=== PATIENT | male | born 1935 | race Caucasian/White ===

== ENCOUNTER → 2016-11-26 | Outpatient (CLI) | payer BC ==
[~2016-11-26] MED LIST: ACET-1256 PO; ALBU0.5N2 NEB; ALBU1AER9 INH; ASPI81TA28 PO; ATOR-26 PO; BNC40 PO; CETI10TA84 PO; CHOL1TAB2 PO; CLOP1TAB15 PO; COEN100C7 PO; CYAN10005 PO; DILT240C48 PO; DILT300C PO; DIPH-437 PO; FERR1TAB13 PO; FLUT1INH INH; FRS/40 PO; FURO-85 PO; GFNSR600 PO; GLUC1500 PO; GUAISYP4 PO; INSDGIPEN SC; LEVO125T4 PO; LEVO25TA5 PO; LSX40 PO; METF-384 PO; METF1TAB53 PO; MULT-845 PO; OMEG10007 PO; PLV75 PO; POTA20TA16 PO; PRED-301 PO; PRED10TA PO; PRT40 PO; SITA1TAB27 PO; SPRIN/30 INH; TPRSR/50 PO; VIT D3; augmentin
--- NOTE | 2016-11-26 12:16 | DIAGNOSTIC IMAGING REPORT ---
ABDOMEN AND PELVIS CT WITH IV AND ORAL CONTRAST CT DOSE: HISTORY: NON-SMALL CELL LUNG cancer TECHNIQUE: Multiaxial CT images of the abdomen and pelvis were performed following the use of intravenous and oral contrast. COMPARISON STUDY: Abdomen and pelvis CT 08/13/2016. FINDINGS: Bibasilar groundglass and tree-in-bud nodular densities which are new from the prior study. This favors an atypical pneumonia. No suspicious lytic or blastic osseous lesions. There are poststernotomy changes. There are few punctate calcified granulomas within the liver and spleen. No hepatic or splenic masses. The gallbladder and adrenal glands are unremarkable. Fatty replacement throughout the majority of the pancreas. Small splenic subcapsular fluid collection remains unchanged. No renal stones or hydronephrosis. The left kidney enhances normally. Stable 3 cm cyst within the right kidney. No retroperitoneal or mesenteric lymphadenopathy. Extensive calcified plaque within the aorta and iliac arteries. 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 This remains unchanged. Prostate remains mildly enlarged. Mild anterior bladder wall thickening may be due to underdistention. Colonic diverticulosis. Moderate stool throughout the colon. No bowel wall thickening or obstruction. Normal appendix. IMPRESSION: 1. No significant change compared to the prior study. No evidence for metastatic disease within the abdomen or pelvis. 2. Small splenic subcapsular fluid collection remains stable. This may represent an old hematoma. 3. Patchy groundglass and tree-in-bud nodular densities within the lung bases favor an atypical pneumonia. Please refer to the dedicated chest CT performed same day for further evaluation. Electronically signed by: Guille Baltazar M.D. 11/26/2016 12:14 PM Dictated Date/Time: 11/26/2016 12:04 PM
--- NOTE | 2016-11-26 12:26 | DIAGNOSTIC IMAGING REPORT ---
CHEST CT WITH CONTRAST CT DOSE: 1147.28 mGy.cm HISTORY: Non-small cell lung cancer. Follow-up. TECHNIQUE: Multiaxial CT images of the chest were performed following the intravenous administration of contrast. COMPARISON: Chest CT 08/13/2016 FINDINGS: Emphysema. The central airways are patent. No pneumothorax. No pleural effusions. Calcified granuloma within the left upper lobe. A 13 mm nodule within the superior segment of the left lower lobe on image 24 is increased in size. This produced measured 11 mm. Stable 4 mm nodule within the right upper lobe on image 138 of 356. Stable 8 mm nodule within the right upper lobe on image 172. A few tree-in-bud nodular densities within the lung bases have developed in the interval. This most pronounced within the base of the right lower lobe. This favors a mild atypical pneumonia. Irregular density within the periphery of the right lower lobe is similar to the prior study. This measures 2.2 cm. There are are poststernotomy changes. No suspicious lytic or blastic osseous lesions. No supraclavicular or axillary lymphadenopathy. Mitral and aortic valve calcifications are again noted. No left hilar lymphadenopathy. Significant increase in size in a 4.1 x 3.5 cm right hilar lymph node. Normal caliber thoracic aorta. The central pulmonary arteries are patent. IMPRESSION: 1. Significant increase in size in a 4.1 x 3.5 cm metastatic right hilar lymph node. 2. Slight increase in size in the 13 mm nodule within the left lower lobe which also likely represents a metastatic focus. 3. A few additional subcentimeter pulmonary nodules and a 2.2 cm irregular density within the right lower lobe are not significantly changed. 4. Interval development of a few tree-in-bud nodular densities within the lung bases which likely represents an atypical pneumonia. 5. Emphysema. Electronically signed by: Guille Baltazar M.D. 11/26/2016 12:25 PM Dictated Date/Time: 11/26/2016 12:14 PM
== END | disposition home or self-care (01) ==
LOC: C.CTS 11:27
PROVIDERS: ATTEND Internal Medicine Hematology & Oncology
DX: C34.30 Malignant neoplasm of lower lobe, unspecified bronchus or lung (principal)

== ENCOUNTER → 2016-12-09 | Outpatient (CLI) | payer BC ==
--- NOTE | 2016-12-09 10:48 | DIAGNOSTIC IMAGING REPORT ---
PET/CT HISTORY: Lung carcinoma NON SMALL CELL LUNG CANCER TECHNIQUE: PET/CT was performed from the base of the skull through the pelvis following the intravenous administration of 15.4 mCi of [id number]. Non-contrast CT imaging was performed over the same range without breath-hold for attenuation correction of PET images and anatomic correlation, but not for primary interpretation as it is not of standard diagnostic quality. CT DOSE: COMPARISON: Prior PET/CT scan dated 06/01/2016. CT chest abdomen pelvis dated 11/26/2016. CT chest abdomen and pelvis dated 08/13/2016 FINDINGS: HEAD AND NECK: There is no FDG-avid disease or significant lymphadenopathy in the imaged portions of the head and the neck. CHEST: There is progressive metastatic disease within the chest compared to the prior PET scan, although stable compared to the patient's recent CT exam. A 13 mm nodule showing increased metabolic activity characteristics superior segment left lower lobe is noted. SUVs of 2.6 interval development and/or progression of a right hilar node is noted compared to the prior PET scan but again stable compared to the patient's recent CT exam. SUVs of 6.3. Dimensions are unchanged compared to the recent CT scan. Chest otherwise shows unremarkable activity characteristics. There is physiologic activity within the myocardium. Abdomen/pelvis: Examination of the abdomen and pelvis again shows unremarkable activity characteristics of the gastrointestinal and genitourinary tracts. No significant metabolically active adenopathy is noted. Physiologic activity within the bladder is present. There is no abnormal activity characteristics of the soft tissue pelvis or inguinal regions. MUSCULOSKELETAL: There is no FDG-avid or destructive bone lesion. IMPRESSION: 1. Progressive metastatic disease involving the chest primarily involving the superior segment left lower lobe and right hilum. 2. These nodules and/or nodes, however are unchanged compared to recent CT of the chest 3. Stable appearance to the abdomen and pelvis with no evidence for a metabolically active focus Electronically signed by: Jairo Lucas M.D. 12/09/2016 10:47 AM Dictated Date/Time: 12/09/2016 10:29 AM
== END | disposition home or self-care (01) ==
LOC: C.PET 07:54
PROVIDERS: ATTEND Internal Medicine Hematology & Oncology
DX: C34.30 Malignant neoplasm of lower lobe, unspecified bronchus or lung (principal)

== ENCOUNTER 2016-12-29 13:42 | Inpatient (IN) | payer BC, OTHER ==
[~2016-12-29] VITALS: Ht 180.3 cm; Wt 100.2 kg
[~2016-12-29 13:42] MED LIST changes: -DIPH-437 PO; -FERR1TAB13 PO; -FRS/40 PO; -GFNSR600 PO; -GUAISYP4 PO; -INSDGIPEN SC; -LEVO125T4 PO; -LSX40 PO; -METF1TAB53 PO; -PLV75 PO; -PRED-301 PO; -PRED10TA PO; -SITA1TAB27 PO; -augmentin
[2016-12-29] MEDS ORDERED: ACETAMINOPHEN 500 MG TAB PO STA (13:57)
[2016-12-29] MEDS ORDERED: SODIUM CHLORIDE 0.9% 1000ML 1,000 ML IV STA ×2 (13:57→16:21)
[2016-12-29] MEDS ORDERED: VANCOMYCIN INJ 2,000 MG in SODIUM CHLORIDE 0.9% 250ML 250 ML IV STA (14:05)
[2016-12-29] MEDS ORDERED: VANCOMYCIN INJ 2,000 MG in SODIUM CHLORIDE 0.9% 500ML 500 ML IV SCH (14:05)
[2016-12-29] MEDS ORDERED: PIPERACILLIN/TAZOBACTAM 4.5 GM/100ML D5W IV STA (14:05)
--- NOTE | 2016-12-29 14:08 | DIAGNOSTIC IMAGING REPORT ---
CHEST ONE VIEW PORTABLE CLINICAL HISTORY: fever dyspnea COMPARISON STUDY: 03/30/2016 FINDINGS: Moderately compromised exam due to respiratory motion artifact. Mild stable cardiomegaly. Interstitial prominence throughout both hemithoraces similar compared to the prior exam. Possibility of a vague parenchymal infiltrate left base. Diaphragms are smooth. IMPRESSION: Limited exam due to patient somatic and respiratory motion. Extensive chronic change. Potential early parenchymal infiltrate left base Electronically signed by: Jairo Lucas M.D. 12/29/2016 2:06 PM Dictated Date/Time: 12/29/2016 2:06 PM
[2016-12-29] MEDS ORDERED: OPTIRAY 320 IV PRN (14:15)
[2016-12-29 14:28] LABS: PROTHROMBIN TIME (PATIENT) 10.6 SECONDS (9.0-12.0)
[2016-12-29 14:39] LABS: ALT/SGPT 29 U/L (12-78); AST/SGOT 19 U/L (15-37); BLOOD UREA NITROGEN 41 mg/dl (7-18); CALCIUM 8.5 mg/dl (8.5-10.1); CARBON DIOXIDE 25 mmol/L (21-32); CHLORIDE 102 mmol/L (98-107); GLUCOSE 219 mg/dl (70-99); HEMATOCRIT 28.4 % (42-52); MEAN CELL VOLUME 90.7 fL (80-100); MEAN CORPUSCULAR HEMOGLOBIN 31.3 pg (25-34); MEAN CORPUSCULAR HGB CONC 34.5 g/dl (32-36); MEAN PLATELET VOLUME 11.5 fL (7.4-10.4); PLATELET COUNT 177 K/uL (130-400); POTASSIUM 4.9 mmol/L (3.5-5.1); RED BLOOD COUNT 3.13 M/uL (4.7-6.1); SODIUM 136 mmol/L (136-145); WHITE BLOOD COUNT 0.85 K/uL (4.8-10.8)
[2016-12-29] MEDS ORDERED: LEVAQUIN 750MG / 150ML D5W IV STA (14:40)
[2016-12-29 14:44] LABS: ALKALINE PHOSPHATASE 63 U/L (45-117)
[2016-12-29] MEDS ORDERED: PLV75 PO (14:50)
[2016-12-29] MEDS ORDERED: METF1TAB53 PO (14:50)
[2016-12-29] MEDS ORDERED: SITA1TAB27 PO (14:50)
[2016-12-29] MEDS ORDERED: PRED-301 PO (14:50)
[2016-12-29] MEDS ORDERED: LSX40 PO (14:50)
[2016-12-29] MEDS ORDERED: LEVO125T5 PO (14:50)
[2016-12-29 14:54] LABS: ACANTHOCYTES 1+; COMPLETE YES; EOS % 2.4 %; GIANT PLATELETS 2+; LYMPH % 78.8 %; LYMPH ABS # 0.67 K/uL (1.2-3.4); MONO % 9.4 %; NEUT % 9.4 %
[2016-12-29 14:58] LABS: URINE APPEARANCE CLEAR (CLEAR); URINE BILIRUBIN NEG (NEG); URINE COLOR YELLOW; URINE EPITHELIAL CELL AUTO 0-5 /lpf (0-5); URINE NITRITE NEG (NEG); URINE SPECIFIC GRAVITY 1.013 (1.000-1.030); UROBILINOGEN NEG (NEG); ZZURINE CULT IF INDIC CATH NO
[2016-12-29 15:12] LABS: MANUAL MICROSCOPIC REQUIRED? NO; REVIEW REQ? NO
--- NOTE | 2016-12-29 15:27 | DIAGNOSTIC IMAGING REPORT ---
ABDOMEN AND PELVIS CT WITH IV CONTRAST CT DOSE: 1341.55 mGycm HISTORY: Pain diffuse abd pain TECHNIQUE: Multiaxial CT images of the abdomen and pelvis were performed following the use of intravenous contrast. COMPARISON STUDY: 11/26/2016. FINDINGS: Interval development of or progression of consolidative infiltrative changes right lower lobe. Left base is considered clear. Configuration of liver is unremarkable. Mild gallbladder distention. Right renal cyst unchanged. No evidence for renal hydronephrosis. Slight perinephric fat stranding minimally progressive from the prior study. Bowel pattern is nonobstructive. A be a minimal nonobstructive ileus. Considerable atherosclerotic change of the abdominal aorta as well as pelvic iliac vasculature. Proctor catheter within the bladder. The appendix is normal. IMPRESSION: 1. Progression of and/or development of a consolidative infiltrate right lung base. 2. Subtle increase in perinephric infiltrative fat stranding of the kidneys bilaterally. Also present in part on the prior study, it is possible that this is slightly progressive with urinalysis for potential pyelonephritis recommended. 3. Nonobstructive bowel pattern. Electronically signed by: Jairo Lucas M.D. 12/29/2016 3:25 PM Dictated Date/Time: 12/29/2016 3:16 PM
[2016-12-29] MEDS ORDERED: FRS/40 PO (15:31)
[2016-12-29] MEDS ORDERED: INSDGIPEN SC (15:31)
[2016-12-29] MEDS ORDERED: FERR1TAB13 PO (15:31)
[2016-12-29] MEDS ORDERED: POLYETHYLENE (MIRALAX) 17 GM PACK PO PRN (17:00)
[2016-12-29] MEDS ORDERED: ONDANSETRON INJ 2 MG/ML 2 ML VIAL IV PRN (17:00)
[2016-12-29] MEDS ORDERED: ALBUT/IPRATROP 3MG/0.5MG NEB 3 ML VIAL INH PRN (17:00)
[2016-12-29] MEDS ORDERED: ALUMINUM/MAGNESIUM/SIMETH (MAALOX MAX) 30 ML UDC PO PRN (17:00)
--- NOTE | 2016-12-29 17:33 | History and Physical ---
History & Physical Date & Time of Service: Dec 29, 2016 at 16:55 Chief Complaint: Sepsis Alert Primary Care Physician: Kennedy George M.D. History of Present Illness Source: patient, family, clinic records, hospital records This patient is a pleasant 81-year-old male that presents emergency department by ambulance with complaints of fever that started yesterday. The patient has a history of non-small cell lung cancer. He is currently undergoing chemotherapy. He was being treated with Opdivo over the last year and a half. It reportedly stopped working about a month ago. He had his first dose of chemotherapy last week. He reports feeling wiped out over the weekend. He did have some diarrhea 3 days ago. He is also complaining of a dull diffuse stomachache. Some mild nausea. No vomiting. He denies any blood in his stool. He was recently on a ten-day course of Levaquin 750 mg for pneumonia. He has had a continued productive cough. He denies any shortness of breath. He reports eating and drinking normally over the last several days. The patient was traveling to [place] to see an oncologist yesterday. When he got to the office, it was noted that he had a fever of 100.5. On the way home, the patient's noted that he seems somewhat confused. At first he refused to go to the hospital. When he became progressively weak, the called the ambulance. Workup in the emergency department is noted for neutropenia with an ANC of 80. Creatinine slightly off from baseline at 1.4. Chest x-ray and CT of the abdomen and pelvis were performed. Right lower lobe infiltrate was noted in addition to perinephric stranding bilaterally. The patient denies any urinary symptoms prior to arrival. Past Medical/Surgical History Non-small cell lung cancer previously treated with Opdivo. Now being treated with chemotherapy. First dose 1 week ago. Peripheral vascular disease status post bilateral lower extremity stenting 2 years ago Diabetes mellitus type 2 Obstructive sleep apnea COPD history of upper GI bleed associated with duodenal ulcers in 2013 Hyperlipidemia Bronchial washings grew out pseudomonas in 2013 Coronary artery disease and aortic stenosis status post aVR and CABG 2 in 2006 (porcine bioprosthetic valve) s/p cataract sx, knee sx, other sx as noted above Family History Heart disease Social History Smoking Status: Former Smoker (quit smoking in 2006) Alcohol Use: none Drug Use: none Marital Status: Housing status: lives with significant other Occupational Status: retired (retired yesi of [employer]) Immunizations History of Influenza Vaccine: No Influenza Vaccine Date: Jul 04, 2010 History of Tetanus Vaccine?: UTD History of Pneumococcal: No History of Hepatitis B Vaccine: No Multi-Drug Resistant Organisms History of MDRO: No Allergies Coded Allergies: Sulfa Antibiotics (Verified Allergy, Severe, ., 12/29/16) Home Medications Scheduled Aspirin (Aspirin Ec), 81 MG PO DIRECTED Atorvastatin (Lipitor), 80 MG PO HS Cholecalciferol (Vitamin D-3), 1,000 INTER.UNIT PO BID Clopidogrel (Plavix), 75 MG PO DAILY Coenzyme Q10 (Ubidecarenone) (Coq10), 100 MG PO DAILY Cyanocobalamin (Vitamin B-12), 1,000 MCG PO DAILY Diltiazem Hcl Coated Beads (Cartia Xt), 1 CAP PO DAILY Ferrous Sulfate (Kp Ferrous Sulfate), 325 MG PO DAILY Fish Oil ([place]-3), 1,000 MG PO DAILY Fluticasone Furoate-Vilanterol (Breo Ellipta), 1 INHA INH DAILY Furosemide (Furosemide), 40 MG PO QAM Furosemide (Lasix), 20 MG PO QPM Qldixdgmvyf-Wakumsdutjv-Obp C- (Glucosamine Chondroitin 1), 1,500 MG PO DAILY Insulin Glargine (Lantus Solostar), 8 UNITS SC QPM Levothyroxine Sodium (Levothyroxine Sodium), 125 MCG PO QAM Metformin Hcl (Glucophage Ext Rel), 2,000 MG PO QAM Metoprolol Succinate (Metoprolol Succinate ER), 50 TAB PO QAM Multiple Vitamins W/ Minerals (Centrum Silver Adult 50+), 1 TAB PO DAILY Olmesartan Medoxomil (Benicar), 40 MG PO QAM Pantoprazole (Pantoprazole Sodium), 40 MG PO BID Potassium Ext Rel (Klor-Con), 20 MEQ PO DAILY Prednisone (Prednisone), 5 MG PO DAILY Sitagliptin (Januvia), 100 MG PO DAILY Tiotropium [place] (Spiriva Handihaler), 1 CAP INH QPM Scheduled PRN Acetaminophen (Tylenol), 1,000 MG PO Q4H PRN for Pain Albuterol 0.5% Soln (Ventolin 0.5% Soln), 1 VIAL NEB DAILY PRN for PRN Albuterol Sulfate (Proair Hfa), 2 PUFFS INH QID PRN for Wheezing Cetirizine (Zyrtec), 10 MG PO DAILY PRN for Allergies Review of Systems 10 system review performed and negative unless noted in HPI or below Physical Exam Vital Signs Date Time Temp Pulse Resp B/P Pulse Ox O2 Delivery O2 Flow Rate FiO2 12/29/16 16:23 82 18 102/40 99 Room Air 12/29/16 16:15 81 18 97/41 98 Room Air 12/29/16 15:56 82 18 93/39 97 Nasal Cannula 2.0 12/29/16 15:36 87 20 114/51 97 Nasal Cannula 2.0 12/29/16 15:25 37.0 85 18 97/43 98 Nasal Cannula 2.0 12/29/16 14:59 88 21 103/38 98 Nasal Cannula 2.0 12/29/16 14:53 39.0 12/29/16 14:48 90 22 104/40 98 Nasal Cannula 2.0 12/29/16 14:31 98 24 117/44 95 Room Air 12/29/16 14:07 98 21 114/32 97 Nasal Cannula 2.0 12/29/16 14:04 97 Nasal Cannula 2.0 12/29/16 13:55 101 12/29/16 13:42 38.6 106 20 118/60 97 Nasal Cannula 2.0 12/29/16 13:42 97 Nasal Cannula 2.0 GENERAL: 81-year-old male, acutely ill in appearance SKIN: The skin was warm and sweaty HEAD: Normocephalic atraumatic. EYES: Pupils equal round and reactive to light Extraocular movements intact. MOUTH: Mucous membranes dry. Superficial ulceration noted to the left anterior portion of the tongue. No weight exudate noted. NECK: No lymphadenopathy. No JVD. HEART: Faint systolic murmur. Regular rate and rhythm. LUNGS: Crackles at the bases right greater than left. No wheezing auscultated. Mild tachypnea without any sensory muscle use. ABDOMEN: Positive bowel sounds x 4.Soft, nontender, without organomegaly. No guarding or rebound tenderness. No CVA tenderness noted. MUSCULOSKELETAL: No muscle atrophy, erythema, or edema noted. Strength 5/5 throughout. NEURO: Patient was alert and oriented to person place and time. Normal sensation to touch. No focal neurological deficits. Diagnostics Laboratory Results 12/29/16 13:47 Red Blood Count 3.13, Mean Corpuscular Volume 90.7, Mean Corpuscular Hemoglobin 31.3, Mean Corpuscular Hemoglobin Concent 34.5, Mean Platelet Volume 11.5, Neutrophils (%) (Auto) 9.4, Lymphocytes (%) (Auto) 78.8, Monocytes (%) (Auto) 9.4, Eosinophils (%) (Auto) 2.4, Basophils (%) (Auto) 0.0, Neutrophils # (Auto) 0.08, Lymphocytes # (Auto) 0.67, Monocytes # (Auto) 0.08, Eosinophils # (Auto) 0.02, Basophils # (Auto) 0.00 Test 12/29/16 13:47 12/29/16 13:55 12/29/16 14:23 White Blood Count 0.85 K/uL (4.8-10.8) Red Blood Count 3.13 M/uL (4.7-6.1) Hemoglobin 9.8 g/dL (14.0-18.0) Hematocrit 28.4 % (42-52) Mean Corpuscular Volume 90.7 fL (80-100) Mean Corpuscular Hemoglobin 31.3 pg (25-34) Mean Corpuscular Hemoglobin Concent 34.5 g/dl (32-36) Platelet Count 177 K/uL (130-400) Mean Platelet Volume 11.5 fL (7.4-10.4) Neutrophils (%) (Auto) 9.4 % Lymphocytes (%) (Auto) 78.8 % Monocytes (%) (Auto) 9.4 % Eosinophils (%) (Auto) 2.4 % Basophils (%) (Auto) 0.0 % Neutrophils # (Auto) 0.08 K/uL (1.4-6.5) Lymphocytes # (Auto) 0.67 K/uL (1.2-3.4) Monocytes # (Auto) 0.08 K/uL (0.11-0.59) Eosinophils # (Auto) 0.02 K/uL (0-0.5) Basophils # (Auto) 0.00 K/uL (0-0.2) RDW Standard Deviation 45.0 fL (36.4-46.3) RDW Coefficient of Variation 13.6 % (11.5-14.5) Immature Granulocyte % (Auto) 0.0 % Immature Granulocyte # (Auto) 0.00 K/uL (0.00-0.02) Giant Platelets 2+ Acanthocytes 1+ Prothrombin Time 10.6 SECONDS (9.0-12.0) Prothromb Time International Ratio 1.0 (0.9-1.1) Anion Gap 9.0 mmol/L (3-11) Estimated GFR () 54.2 Estimated GFR (Non- 46.8 BUN/Creatinine Ratio 29.0 (10-20) Calcium Level 8.5 mg/dl (8.5-10.1) Magnesium Level 2.0 mg/dl (1.8-2.4) Total Bilirubin 1.1 mg/dl (0.2-1) Direct Bilirubin 0.3 mg/dl (0-0.2) Aspartate Amino Transf (AST/SGOT) 19 U/L (15-37) Alanine Aminotransferase (ALT/SGPT) 29 U/L (12-78) Alkaline Phosphatase 63 U/L (45-117) Total Creatine Kinase 44 U/L (39-308) Creatine Kinase MB < 0.5 ng/ml (0.5-3.6) Creatine Kinase MB Ratio (0-3.0) Troponin I 0.034 ng/ml (0-0.045) Total Protein 6.5 gm/dl (6.4-8.2) Albumin 2.8 gm/dl (3.4-5.0) Bedside Lactic Acid Venous 2.02 mmol/L (0.90-1.70) Urine Color YELLOW Urine Appearance CLEAR (CLEAR) Urine pH 5.0 (4.5-7.5) Urine Specific [place] 1.013 (1.000-1.030) Urine Protein NEG (NEG) Urine Glucose (UA) NEG (NEG) Urine Ketones NEG (NEG) Urine Occult Blood NEG (NEG) Urine Nitrite NEG (NEG) Urine Bilirubin NEG (NEG) Urine Urobilinogen NEG (NEG) Urine Leukocyte Esterase NEG (NEG) Urine WBC (Auto) 0 /hpf (0-5) Urine RBC (Auto) 0-4 /hpf (0-4) Urine Hyaline Casts (Auto) 0 /lpf (0-5) Urine Epithelial Cells (Auto) 0-5 /lpf (0-5) Urine Bacteria (Auto) NEG (NEG) Results Past 24 Hours Test 12/29/16 13:47 12/29/16 13:55 12/29/16 14:23 Range/Units White Blood Count 0.85 4.8-10.8 K/uL Red Blood Count 3.13 4.7-6.1 M/uL Hemoglobin 9.8 14.0-18.0 g/dL Hematocrit 28.4 42-52 % Mean Corpuscular Volume 90.7 80-100 fL Mean Corpuscular Hemoglobin 31.3 25-34 pg Mean Corpuscular Hemoglobin Concent 34.5 32-36 g/dl Platelet Count 177 130-400 K/uL Mean Platelet Volume 11.5 7.4-10.4 fL Neutrophils (%) (Auto) 9.4 % Lymphocytes (%) (Auto) 78.8 % Monocytes (%) (Auto) 9.4 % Eosinophils (%) (Auto) 2.4 % Basophils (%) (Auto) 0.0 % Neutrophils # (Auto) 0.08 1.4-6.5 K/uL Lymphocytes # (Auto) 0.67 1.2-3.4 K/uL Monocytes # (Auto) 0.08 0.11-0.59 K/uL Eosinophils # (Auto) 0.02 0-0.5 K/uL Basophils # (Auto) 0.00 0-0.2 K/uL RDW Standard Deviation 45.0 36.4-46.3 fL RDW Coefficient of Variation 13.6 11.5-14.5 % Immature Granulocyte % (Auto) 0.0 % Immature Granulocyte # (Auto) 0.00 0.00-0.02 K/uL Giant Platelets 2+ Acanthocytes 1+ Prothrombin Time 10.6 9.0-12.0 SECONDS Prothromb Time International Ratio 1.0 0.9-1.1 Sodium Level 136 136-145 mmol/L Potassium Level 4.9 3.5-5.1 mmol/L Chloride Level 102 98-107 mmol/L Carbon Dioxide Level 25 21-32 mmol/L Anion Gap 9.0 3-11 mmol/L Blood Urea Nitrogen 41 7-18 mg/dl Creatinine 1.40 0.60-1.40 mg/dl Estimated GFR () 54.2 Estimated GFR (Non- 46.8 BUN/Creatinine Ratio 29.0 10-20 Random Glucose 219 70-99 mg/dl Calcium Level 8.5 8.5-10.1 mg/dl Magnesium Level 2.0 1.8-2.4 mg/dl Total Bilirubin 1.1 0.2-1 mg/dl Direct Bilirubin 0.3 0-0.2 mg/dl Aspartate Amino Transf (AST/SGOT) 19 15-37 U/L Alanine Aminotransferase (ALT/SGPT) 29 12-78 U/L Alkaline Phosphatase 63 45-117 U/L Total Creatine Kinase 44 39-308 U/L Creatine Kinase MB < 0.5 0.5-3.6 ng/ml Creatine Kinase MB Ratio 0-3.0 Troponin I 0.034 0-0.045 ng/ml Total Protein 6.5 6.4-8.2 gm/dl Albumin 2.8 3.4-5.0 gm/dl Bedside Lactic Acid Venous 2.02 0.90-1.70 mmol/L Urine Color YELLOW Urine Appearance CLEAR CLEAR Urine pH 5.0 4.5-7.5 Urine Specific [place] 1.013 1.000-1.030 Urine Protein NEG NEG Urine Glucose (UA) NEG NEG Urine Ketones NEG NEG Urine Occult Blood NEG NEG Urine Nitrite NEG NEG Urine Bilirubin NEG NEG Urine Urobilinogen NEG NEG Urine Leukocyte Esterase NEG NEG Urine WBC (Auto) 0 0-5 /hpf Urine RBC (Auto) 0-4 0-4 /hpf Urine Hyaline Casts (Auto) 0 0-5 /lpf Urine Epithelial Cells (Auto) 0-5 0-5 /lpf Urine Bacteria (Auto) NEG NEG Microbiology Results 12/29/16 Blood Culture, Received Pending 12/29/16 Blood Culture, Received Pending Diagnostic Radiology Patient: DANNY BERG Address1: [address] [place] [address] Rec: [id number] Address2: Acct ID: [id number] [facility] Zip: [place] [address] Date: 1935 Sex: M Room/Bed: Ref Phy: Kennedy George M.D. SC: MIKEY Att Phy: Report #: [id number] Olivia Phy: Kennedy George M.D. Test: [id number] Admit Phy: Farm Crew Member: MURRAY Interpreting Phy: Jairo Lucas M.D. Diagnosis: SEPSIS ALERT Ordering Phy: Mando Berrios DO Service Date: 12/29/16 Admit Date: 12/29/16 MNE: [id number] CONF: DICTATED BY: Jairo Lucas M.D.]] CC: Mando Berrios, Kennedy Dinh M.D. Endcc: [~ rep ct add3]] CHEST ONE VIEW PORTABLE CLINICAL HISTORY: fever dyspnea COMPARISON STUDY: 03/30/2016 FINDINGS: Moderately compromised exam due to respiratory motion artifact. Mild stable cardiomegaly. Interstitial prominence throughout both hemithoraces similar compared to the prior exam. Possibility of a vague parenchymal infiltrate left base. Diaphragms are smooth. IMPRESSION: Limited exam due to patient somatic and respiratory motion. Extensive chronic change. Potential early parenchymal infiltrate left base Patient: DANNY BERG Address1: [address] [place] [address], [address] [facility] Rec: [id number] Address2: Acct ID: [id number] [facility] Zip: [place] [address] Date: 1935 Sex: M Room/Bed: Ref Phy: Kennedy George M.D. SC: MIKEY Att Phy: Report #: [id number] Olivia Phy: Kennedy George M.D. Test: APIV Admit Phy: Farm Crew Member: MARICHUY Interpreting Phy: Jairo Lucas M.D. Diagnosis: SEPSIS ALERT Ordering Phy: Mando Berrios DO Service Date: 12/29/16 Admit Date: 12/29/16 MNE: [id number] CONF: DICTATED BY: Jairo Lucas M.D.]] CC: Mando Berrios, Kennedy Dinh M.D. Endcc: [~ rep ct add3]] ABDOMEN AND PELVIS CT WITH IV CONTRAST CT DOSE: 1341.55 mGycm HISTORY: Pain diffuse abd pain TECHNIQUE: Multiaxial CT images of the abdomen and pelvis were performed following the use of intravenous contrast. COMPARISON STUDY: 11/26/2016. FINDINGS: Interval development of or progression of consolidative infiltrative changes right lower lobe. Left base is considered clear. Configuration of liver is unremarkable. Mild gallbladder distention. Right renal cyst unchanged. No evidence for renal hydronephrosis. Slight perinephric fat stranding minimally progressive from the prior study. Bowel pattern is nonobstructive. A be a minimal nonobstructive ileus. Considerable atherosclerotic change of the abdominal aorta as well as pelvic iliac vasculature. Proctor catheter within the bladder. The appendix is normal. IMPRESSION: 1. Progression of and/or development of a consolidative infiltrate right lung base. 2. Subtle increase in perinephric infiltrative fat stranding of the kidneys bilaterally. Also present in part on the prior study, it is possible that this is slightly progressive with urinalysis for potential pyelonephritis recommended. 3. Nonobstructive bowel pattern. Electronically signed by: Jairo Lucas M.D. 12/29/2016 3:25 PM Dictated Date/Time: 12/29/2016 3:16 PM The status of this report is Signed. Draft = Not yet reviewed or approved by Radiologist. Signed = Reviewed and approved by Radiologist. EKG Normal sinus rhythm Rate 100 bpm Right bundle-branch block noted Short PA noted. Impression Assessment and Plan 81-year-old male hx NSC lung CA, presents emergency department with altered mental status, fever, nausea diarrhea and upper respiratory symptoms. Meets sepsis criteria in the setting of neutropenic fever. Hypotensive, tachycardic and febrile. Infiltrate at the right base noted. Metabolic encephalopathy secondary to sepsis likely pulmonary source in the setting of neutropenic fever -Admit to telemetry -Continue broad-spectrum antibiotics with vancomycin, Levaquin and Zosyn. This should cover the patient's history of growing Pseudomonas with bronchial brushings in 2013. -Questionable perinephric stranding per CT. Patient has no complaints of urinary symptoms. Send urine culture. Antibiotics as noted above. -In the setting of diarrhea, send C. difficile, stool cultures -Continue IV fluids. Patient received a total 2 L normal saline bolus in the ED. If BP remains stable, NS @ 100 cc hr. Watch for signs of fluid overload -Repeat lactic acid -Follow CBC -Consult oncology History of coronary artery disease, CABG, aortic stenosis status post AVR with porcine bioprosthesis in 2006 -Continue medical management as noted below: Aspirin 81 mg daily, Plavix 75 mg daily, Cardizem to 240 mg daily, metoprolol extended release 50 mg daily, atorvastatin 80 mg daily Hypertension -Hold Benicar 40 mg daily for mild elevation in creatinine -Also hold home dose of Lasix, which is typically 40 mg in the morning and 20 mg at night Diabetes mellitus -Hold typical oral agents of Januvia 1 her milligrams in the morning and metformin 2000 mg in the morning -Continue Lantus 8 units daily -Cover with an insulin sliding scale -Check hemoglobin A1c given the patient's history of noncompliance History of upper GI bleed -Continue pantoprazole 40 mg twice daily History of COPD -Continue Spiriva daily -Duo nebs every 6 hours as needed -Continue Breo daily History of chronic pain -This is reportedly why the patient is taking prednisone 5 mg daily. Given this low dose, I will hold off on stress steroid dosing. Continue typical home regimen Hypothyroidism -Continue Synthroid 125 g daily -Check TSH DVT prophylaxis -Heparin 5000 units subcutaneous BID -TEDS, SCDs CODE STATUS -LEVEL I FULL CODE Level of Care Telemetry Resuscitation Status FULL RESUSCITATION VTE Prophylaxis VTE Risk Assessment Done? Y/N: Yes Risk Level: Moderate Given or contraindicated: Unfractionated heparin SQ, T.E.D. 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 Discussed with ONEYDA Fontaine and agree with findings and plan as documented in the note. Any exceptions or clarifications are listed here: Patient presents with neutropenic fever and mild hypotension with probable right lower lobe pneumonia. He does not have a port or a PICC line in place. He recently started with productive cough and runny nose as well as some diarrhea in the last 1-2 days. He has a history of non-small cell lung cancer and started a new chemotherapy last week of which he does not know the name. He has no known sick contacts. Vitals reviewed No acute distress but appears ill, alert awake and oriented Regular rate and rhythm, no murmurs gallops or rubs Pulmonary-mild crackles at the rate base, otherwise slightly diminished throughout, breathing nonlabored Abdomen soft nontender nondistended positive bowel sounds Extremities no edema Skin no rashes 81-year-old male with multiple medical problems including non-small cell lung cancer currently on a new chemotherapy regimen causing neutropenia, here with sepsis and fever with mild hypotension. -Continue vancomycin, Levaquin, and Zosyn, follow blood cultures and urine culture -Continue IV fluids -Will add on low-dose hydrocortisone 12.5 mg IV every 8 hours for stress test steroids given chronic prednisone use -Check influenza PCR swab and treat with Tamiflu with positive Appreciate oncology consult given neutropenia and anemia in the setting of new chemotherapy Documented By: Neida Lombardo
--- NOTE | 2016-12-29 18:18 | EMERGENCY ROOM VISIT NOTE ---
History Report prepared by Anju: Jorge Nails Under the Supervision of: Dr. Mando Berrios D.O. First contact with patient: 13:46 Chief Complaint: FEVER Stated Complaint: SEPSIS ALERT History of Present Illness The patient is a 81 year old male who presents to the Emergency Room with complaints of a persistent fever beginning today. He was at the [facility] today and developed a fever of 100. He went home with his and reportedly became confused. He has had constipation for the past 3 to 4 days, and today became nausea, and had vomiting and diarrhea. The patient also complains of abdominal pain. He reports having Non-Hodgkin's lymphoma and his last chemo treatment was yesterday. He denies having any previous abdominal surgeries. admits that he has been having a cough and runny nose for the past 48 hours. He is taking chemotherapy currently. Source of History: patient, spouse/significant other Onset: earlier today Position: other (global) Symptom Intensity: fever of 100 Quality: other (fever) Timing: other (persistent) Associated Symptoms: + abdominal pain, + diarrhea, + nausea, + vomiting Note: The patient has also been confused. Review of Systems See HPI for pertinent positives & negatives. A total of 10 systems reviewed and were otherwise negative. Past Medical & Surgical Medical Problems: (1) History of non-Hodgkin's lymphoma (2) Sepsis Family History Heart disease Social History Smoking Status: Former Smoker Alcohol Use: occasionally Drug Use: none Marital Status: Housing Status: lives with family Occupation Status: retired Current/Historical Medications Scheduled Aspirin (Aspirin Ec), 81 MG PO DIRECTED Atorvastatin (Lipitor), 80 MG PO HS Cholecalciferol (Vitamin D-3), 1,000 INTER.UNIT PO BID Clopidogrel (Plavix), 75 MG PO DAILY Coenzyme Q10 (Ubidecarenone) (Coq10), 100 MG PO DAILY Cyanocobalamin (Vitamin B-12), 1,000 MCG PO DAILY Diltiazem Hcl Coated Beads (Cartia Xt), 1 CAP PO DAILY Ferrous Sulfate (Kp Ferrous Sulfate), 325 MG PO DAILY Fish Oil ([place]-3), 1,000 MG PO DAILY Fluticasone Furoate-Vilanterol (Breo Ellipta), 1 INHA INH DAILY Furosemide (Furosemide), 40 MG PO QAM Furosemide (Lasix), 20 MG PO QPM Swrcjuiiezk-Houdffasliy-Cso C- (Glucosamine Chondroitin 1), 1,500 MG PO DAILY Insulin Glargine (Lantus Solostar), 8 UNITS SC QPM Levothyroxine Sodium (Levothyroxine Sodium), 125 MCG PO QAM Metformin Hcl (Glucophage Ext Rel), 2,000 MG PO QAM Metoprolol Succinate (Metoprolol Succinate ER), 50 TAB PO QAM Multiple Vitamins W/ Minerals (Centrum Silver Adult 50+), 1 TAB PO DAILY Olmesartan Medoxomil (Benicar), 40 MG PO QAM Pantoprazole (Pantoprazole Sodium), 40 MG PO BID Potassium Ext Rel (Klor-Con), 20 MEQ PO DAILY Prednisone (Prednisone), 5 MG PO DAILY Sitagliptin (Januvia), 100 MG PO DAILY Tiotropium [place] (Spiriva Handihaler), 1 CAP INH QPM Scheduled PRN Acetaminophen (Tylenol), 1,000 MG PO Q4H PRN for Pain Albuterol 0.5% Soln (Ventolin 0.5% Soln), 1 VIAL NEB DAILY PRN for PRN Albuterol Sulfate (Proair Hfa), 2 PUFFS INH QID PRN for Wheezing Cetirizine (Zyrtec), 10 MG PO DAILY PRN for Allergies Allergies Coded Allergies: Sulfa Antibiotics (Verified Allergy, Severe, ., 12/29/16) Physical Exam Vital Signs Date Time Temp Pulse Resp B/P Pulse Ox O2 Delivery O2 Flow Rate FiO2 12/29/16 17:36 84 20 104/61 94 Nasal Cannula 2.0 12/29/16 17:15 85 18 132/95 99 Room Air 12/29/16 17:01 84 19 121/51 100 Room Air 12/29/16 16:23 82 18 102/40 99 Room Air 12/29/16 16:15 81 18 97/41 98 Room Air 12/29/16 15:56 82 18 93/39 97 Nasal Cannula 2.0 12/29/16 15:36 87 20 114/51 97 Nasal Cannula 2.0 12/29/16 15:25 37.0 85 18 97/43 98 Nasal Cannula 2.0 12/29/16 14:59 88 21 103/38 98 Nasal Cannula 2.0 12/29/16 14:53 39.0 12/29/16 14:48 90 22 104/40 98 Nasal Cannula 2.0 12/29/16 14:31 98 24 117/44 95 Room Air 12/29/16 14:07 98 21 114/32 97 Nasal Cannula 2.0 12/29/16 14:04 97 Nasal Cannula 2.0 12/29/16 13:55 101 12/29/16 13:42 38.6 106 20 118/60 97 Nasal Cannula 2.0 12/29/16 13:42 97 Nasal Cannula 2.0 Physical Exam GENERAL: Sitting up in bed, ill appearing, on nasal cannula. EYE EXAM: normal conjunctiva, PERRL and EOM's intact OROPHARYNX: no exudate, no erythema, lips, buccal mucosa, and tongue normal and mucous membranes are moist NECK: supple, no nuchal rigidity, no adenopathy, non-tender LUNGS: Diffuse wheezing bilaterally. HEART: no murmurs, S1 normal and S2 normal ABDOMEN: abdomen soft, non-tender, normo-active bowel sounds, no masses, no rebound or guarding. BACK: Back is symmetrical on inspection and there is no deformity, no midline tenderness, no CVA tenderness. SKIN: no rashes and no bruising UPPER EXTREMITIES: upper extremities are grossly normal. LOWER EXTREMITIES: No pitting edema. NEURO EXAM: Alert, oriented to name and date of , but not place or year. Cranial nerves II-XII grossly intact, normal speech, no gross weakness of arms , no gross weakness of legs. Gross sensation intact. Medical Decision & Procedures ER Provider Diagnostic Interpretation: Radiology results have been interpreted by the radiologist and reviewed by me. CHEST ONE VIEW PORTABLE FINDINGS: Moderately compromised exam due to respiratory motion artifact. Mild stable cardiomegaly. Interstitial prominence throughout both hemithoraces similar compared to the prior exam. Possibility of a vague parenchymal infiltrate left base. Diaphragms are smooth. IMPRESSION: Limited exam due to patient somatic and respiratory motion. Extensive chronic change. Potential early parenchymal infiltrate left base Electronically signed by: Jairo Lucas M.D. 12/29/2016 2:06 PM Dictated Date/Time: 12/29/2016 2:06 PM ABDOMEN AND PELVIS CT WITH IV CONTRAST FINDINGS: Interval development of or progression of consolidative infiltrative changes right lower lobe. Left base is considered clear. Configuration of liver is unremarkable. Mild gallbladder distention. Right renal cyst unchanged. No evidence for renal hydronephrosis. Slight perinephric fat stranding minimally progressive from the prior study. Bowel pattern is nonobstructive. A be a minimal nonobstructive ileus. Considerable atherosclerotic change of the abdominal aorta as well as pelvic iliac vasculature. Proctor catheter within the bladder. The appendix is normal. IMPRESSION: 1. Progression of and/or development of a consolidative infiltrate right lung base. 2. Subtle increase in perinephric infiltrative fat stranding of the kidneys bilaterally. Also present in part on the prior study, it is possible that this is slightly progressive with urinalysis for potential pyelonephritis recommended. 3. Nonobstructive bowel pattern. Electronically signed by: Jairo Lucas M.D. 12/29/2016 3:25 PM Dictated Date/Time: 12/29/2016 3:16 PM Laboratory Results 12/29/16 13:47 Red Blood Count 3.13, Mean Corpuscular Volume 90.7, Mean Corpuscular Hemoglobin 31.3, Mean Corpuscular Hemoglobin Concent 34.5, Mean Platelet Volume 11.5, Neutrophils (%) (Auto) 9.4, Lymphocytes (%) (Auto) 78.8, Monocytes (%) (Auto) 9.4, Eosinophils (%) (Auto) 2.4, Basophils (%) (Auto) 0.0, Neutrophils # (Auto) 0.08, Lymphocytes # (Auto) 0.67, Monocytes # (Auto) 0.08, Eosinophils # (Auto) 0.02, Basophils # (Auto) 0.00 12/29/16 13:47 Test 12/29/16 13:47 12/29/16 13:55 12/29/16 14:23 White Blood Count 0.85 K/uL (4.8-10.8) Red Blood Count 3.13 M/uL (4.7-6.1) Hemoglobin 9.8 g/dL (14.0-18.0) Hematocrit 28.4 % (42-52) Mean Corpuscular Volume 90.7 fL (80-100) Mean Corpuscular Hemoglobin 31.3 pg (25-34) Mean Corpuscular Hemoglobin Concent 34.5 g/dl (32-36) Platelet Count 177 K/uL (130-400) Mean Platelet Volume 11.5 fL (7.4-10.4) Neutrophils (%) (Auto) 9.4 % Lymphocytes (%) (Auto) 78.8 % Monocytes (%) (Auto) 9.4 % Eosinophils (%) (Auto) 2.4 % Basophils (%) (Auto) 0.0 % Neutrophils # (Auto) 0.08 K/uL (1.4-6.5) Lymphocytes # (Auto) 0.67 K/uL (1.2-3.4) Monocytes # (Auto) 0.08 K/uL (0.11-0.59) Eosinophils # (Auto) 0.02 K/uL (0-0.5) Basophils # (Auto) 0.00 K/uL (0-0.2) RDW Standard Deviation 45.0 fL (36.4-46.3) RDW Coefficient of Variation 13.6 % (11.5-14.5) Immature Granulocyte % (Auto) 0.0 % Immature Granulocyte # (Auto) 0.00 K/uL (0.00-0.02) Giant Platelets 2+ Acanthocytes 1+ Prothrombin Time 10.6 SECONDS (9.0-12.0) Prothromb Time International Ratio 1.0 (0.9-1.1) Anion Gap 9.0 mmol/L (3-11) Estimated GFR () 54.2 Estimated GFR (Non- 46.8 BUN/Creatinine Ratio 29.0 (10-20) Calcium Level 8.5 mg/dl (8.5-10.1) Magnesium Level 2.0 mg/dl (1.8-2.4) Total Bilirubin 1.1 mg/dl (0.2-1) Direct Bilirubin 0.3 mg/dl (0-0.2) Aspartate Amino Transf (AST/SGOT) 19 U/L (15-37) Alanine Aminotransferase (ALT/SGPT) 29 U/L (12-78) Alkaline Phosphatase 63 U/L (45-117) Total Creatine Kinase 44 U/L (39-308) Creatine Kinase MB < 0.5 ng/ml (0.5-3.6) Creatine Kinase MB Ratio (0-3.0) Troponin I 0.034 ng/ml (0-0.045) Total Protein 6.5 gm/dl (6.4-8.2) Albumin 2.8 gm/dl (3.4-5.0) Thyroid Stimulating Hormone (TSH) 0.988 uIu/ml (0.300-4.500) Bedside Lactic Acid Venous 2.02 mmol/L (0.90-1.70) Urine Color YELLOW Urine Appearance CLEAR (CLEAR) Urine pH 5.0 (4.5-7.5) Urine Specific [employer] 1.013 (1.000-1.030) Urine Protein NEG (NEG) Urine Glucose (UA) NEG (NEG) Urine Ketones NEG (NEG) Urine Occult Blood NEG (NEG) Urine Nitrite NEG (NEG) Urine Bilirubin NEG (NEG) Urine Urobilinogen NEG (NEG) Urine Leukocyte Esterase NEG (NEG) Urine WBC (Auto) 0 /hpf (0-5) Urine RBC (Auto) 0-4 /hpf (0-4) Urine Hyaline Casts (Auto) 0 /lpf (0-5) Urine Epithelial Cells (Auto) 0-5 /lpf (0-5) Urine Bacteria (Auto) NEG (NEG) Laboratory results per my review. Medications Administered Medications (Trade) Dose Ordered Sig/Dahiana Route Start Time Stop Time Status Last Admin Dose Admin Sodium Chloride (Nss 1000ml) 1,000 ml @ 999 mls/hr Q1H1M STAT IV 12/29/16 13:57 12/29/16 14:57 DC 12/29/16 14:11 999 MLS/HR Acetaminophen (Tylenol Tab) 1,000 mg NOW STAT PO 12/29/16 13:57 12/29/16 14:00 DC 12/29/16 14:10 1,000 MG Piperacillin Sod/ Tazobactam Sod 4.5 gm 4.5 gm NOW STAT IV 12/29/16 14:05 12/29/16 14:07 DC 12/29/16 14:11 4.5 GM Vancomycin HCl/ Sodium Chloride (Vancomycin Inj/ Nss 500ml) 540 ml @ 200 mls/hr TODAY@1405 IV 12/29/16 14:05 12/29/16 20:00 12/29/16 15:36 200 MLS/HR Levofloxacin 750 mg 750 mg NOW STAT IV 12/29/16 14:40 12/29/16 14:41 DC 12/29/16 14:56 750 MG Sodium Chloride 1,000 ml @ 999 mls/hr Q1H1M STAT IV 12/29/16 16:21 12/29/16 17:21 DC 12/29/16 16:23 999 MLS/HR Sodium Chloride (Nss 1000ml) 1,000 ml @ 100 mls/hr Q10H IV 12/29/16 17:00 01/28/17 16:59 12/29/16 18:22 100 MLS/HR ECG Indication: other (fever) Rate (beats per minute): 100 Rhythm: sinus tachycardia, other (sinus arrhythmia) Findings: RBBB, other (normal axis) Comparison ECG Date: 08/01/14 Change: no significant change ED Course ED COURSE: Vital signs were reviewed and showed febrile and tachycardic. The patients medical record was reviewed The above diagnostic studies were performed and reviewed. ED treatments and interventions as stated above. 1346: The patient was evaluated in room B10. A complete history and physical examination was performed. 1357: Ordered Acetaminophen 1,000 mg PO, and NSS 1,000 ml @ 999 mls/hr IV. 1405: Ordered Vancomycin HCl 2,000 mg/Sodium Chloride 540 ml @ 200 mls/hr IV, and Zosyn Iv 4.5 gm IV. 1440: Ordered Levofloxacin 750 mg IV. 1503: The patient's says that the patient has had a cough and runny nose for the past 2 days, and was diagnosed with pneumonia 1 month ago. 1535: I reviewed the patient's case with Dr. Lombardo. She will evaluate the patient for further management. 1540: Upon reevaluation, the patient is dong well.I discussed my findings with the patient and he understands and agrees with the treatment plan. Based on the patients age, coexisting illnesses, exam and lab findings the decision to treat as an inpatient was made. The patient remained stable while under my care. The patient will be evaluated for further management. Medical Decision Differential diagnosis includes etiologies such as sepsis, UTI, pneumonia, metabolic, electrolyte abnormalities, cardiac sources, intracerebral event, toxicologic, neurologic, as well as others were entertained. Patient is a 81-year-old male who presents the ER for altered mental status with a fever of 38.9. Patient is currently on chemotherapy for non-small cell lung carcinoma. Labs show absolute neutrophil count of 80. Lactate was 2. UA was negative. Patient was confused on exam. Chest x-ray supports an infiltrate. CT of abdomen and pelvis was performed which shows a worsening pneumonia. Patient was given broad-spectrum antibiotics to cover pseudomonas as he has had this before in the past. Patient was given a bolus of 2 L of normal saline. His blood pressure did drop in the 90s. He was slightly tachycardic. Patient was admitted to internal medicine with sepsis secondary to pneumonia and a neutropenic fever. Consults Time Called: 1530 Consulting Physician: Dr. Lombardo, [facility] Returned Call: 1532 I reviewed the patient's case with Dr. Lombardo. She will evaluate the patient for further management. Impression Primary Impression: Severe sepsis Additional Impressions: PNA (pneumonia) Neutropenic fever Fever Scribe Attestation The scribe's documentation has been prepared under my direction and personally reviewed by me in its entirety. I confirm that the note above accurately reflects all work, treatment, procedures, and medical decision making performed by me. Departure Information Dispostion Being Evaluated By Hospitalist Referrals Kennedy George M.D. (PCP) Patient Instructions My [facility] Problem Qualifiers Additional Impressions: PNA (pneumonia) Pneumonia type: due to unspecified organism Laterality: unspecified laterality Lung location: unspecified part of lung Qualified Codes: J18.9 - Pneumonia, unspecified organism
[2016-12-29] MEDS: SODIUM CHLORIDE 0.9% 1000ML 1,000 ML IV SCH (18:22)
[2016-12-29 18:26] LABS: THYROID STIMULATING HORMONE 0.988 uIu/ml (0.300-4.500)
[2016-12-29] MEDS ORDERED: PIPERACILL/TAZOBAC CONSULT ACTIVE PRN (18:30)
[2016-12-29] MEDS ORDERED: LEVOFLOXACIN CONSULT ACTIVE PRN (18:30)
[2016-12-29] MEDS ORDERED: VANCOMYCIN CONSULT ACTIVE PRN (18:30)
--- NOTE | 2016-12-29 19:21 | Pharmacy Progress Note ---
Pharmacy Antibiotic Consult Date of Service: Dec 29, 2016. Pharmacy Dosing Scope Pharmacy is consulted to initiate vancomycin/Zosyn/levaquin IV dosing therapy, order appropriate labs and adjust drug dose/frequency. Subjective The patient is a 81 year old male admitted on Dec 29, 2016 at 17:42 with sepsis from a pulmonary source. He has a history of NSCLC currently being treated with chemotherapy. His last therapy was last week. He has a history of Pseudomonas from 2012 that was sarah-sensitive. Objective Height (Feet): 5 Height (Inches): 11 Weight (Kilograms): 100.00 Lab Results (24hrs): Laboratory Tests Test 12/29/16 13:47 BUN/Creatinine Ratio 29.0 Blood Urea Nitrogen 41 mg/dl Creatinine 1.40 mg/dl White Blood Count 0.85 K/uL Red Blood Count 3.13 M/uL Hemoglobin 9.8 g/dL Hematocrit 28.4 % Mean Corpuscular Volume 90.7 fL Mean Corpuscular Hemoglobin 31.3 pg Mean Corpuscular Hemoglobin Concent 34.5 g/dl Platelet Count 177 K/uL Mean Platelet Volume 11.5 fL Neutrophils (%) (Auto) 9.4 % Lymphocytes (%) (Auto) 78.8 % Monocytes (%) (Auto) 9.4 % Eosinophils (%) (Auto) 2.4 % Basophils (%) (Auto) 0.0 % Neutrophils # (Auto) 0.08 K/uL Lymphocytes # (Auto) 0.67 K/uL Monocytes # (Auto) 0.08 K/uL Eosinophils # (Auto) 0.02 K/uL Basophils # (Auto) 0.00 K/uL Micro Results: RUN DATE: 09/08/13 [facility] LAB PAGE 1 RUN TIME: 0839 Specimen Inquiry PATIENT: DANNY BERG LOC: [facility] U # : [id number] AGE/SX: 78/M ROOM: REG : 09/06/[address]: Oscar Guillen M.D. : 1935 BED: DIS : STATUS: REG SDC TLOC: SPEC #: [id number] AMBERLY: 09/06/13 STATUS: COMP REQ #: [id number] RECD: 09/06/[address]: Oscar Guillen M.D. SOURCE: DEBBIE WASH ENTR: 09/06/[address]: SAMANTHA: RT UPP LOB ORDERED: BRON WSH CUL/SM Procedure Result Verified Site GRAM STAIN Final 09/06/13-1140 RESULT FEW WBCs SEEN FEW MONONUCLEATED CELLS FEW BRONCHIAL EPITHELIAL CELLS MANY GRAM POSITIVE COCCI FEW GRAM POSITIVE BACILLI MODERATE GRAM NEGATIVE BACILLI BRONCH WASH CULTURE Final 09/08/13-0839 Organism 1 PSEUDOMONAS AERUGINOSA QUANITY MODERATE SENS SENSITIVITY TO FOLLOW NORMAL TERESO HEAVY NORMAL TERESO 1. PSEUDOMONAS AERUGINOSA Target Route Dose RX AB Cost M.I.C. IQ ------ ----- ------ -- ------ -------- - ------ CEFTAZIDIME S 4 CEFEPIME S <=4 IMIPENEM S 2 AZTREONAM S <=4 GENTAMICIN S <=4 TOBRAMYCIN S <=4 AMIKACIN S <=16 CIPROFLOXACIN S <=1 LEVOFLOXACIN S <=2 PIP/TAZO S <=16 S = SENSITIVE I = INTERMEDIATE R = RESISTANT Assessment & Plan Loading dose: vancomycin 2000 mg (20 mg/kg) IV X 1 dose then: vancomycin 1500 mg IV every 16 hours (population pharmacokinetics suggest a half-life of 15 hr with an elimination constant of 0.046 hr-1). Goal peak level estimate: between 35 - 40 mcg/mL. Goal trough level estimate: between 15 - 20 mcg/mL (source: pulmonary). Trough has been ordered for: . Levaquin: Levaquin 750 mg IV daily has been chosen for neutropenia. No dose adjustment currently necessary Zosyn: standard Zosyn dosing of 3.375 IV x 1 then 3.375 IV q8 hours EI is chosen Pharmacy will continue to follow and will adjust dose/frequency as necessary. Thank you
[2016-12-29] MEDS: INSULIN ASPART 100 UNITS/ML 3 ML PEN SC SCH (21:00)
[2016-12-29] MEDS: INSULIN GLARGINE SOLOSTAR 100 UNITS/ML 3 ML PEN SC SCH (21:00)
[2016-12-29] MEDS: PIPERACILL/TAZOBAC IV 3.375 GM in DEXTROSE 5% 100ML 100 ML IV SCH (22:00)
[2016-12-29] MEDS: TIOTROPIUM BROMIDE 5 PUFF/90 MCG INH INH SCH (22:18)
[2016-12-29] MEDS: ATORVASTATIN 40 MG TAB PO SCH (22:19)
[2016-12-29] MEDS: PANTOprazole SOD 40 MG TAB PO SCH (22:24)
[2016-12-29] MEDS: HEPARIN SOD 5000 UNIT/0.5 ML CARP SQ SCH (22:28)
[2016-12-29] MEDS: ACETAMINOPHEN 325 MG TAB PO PRN (22:32)
[2016-12-29 23:40] LABS: INFLUENZA A PCR Neg for Influ A (NEG); INFLUENZA B PCR Neg for Influ B (NEG)
[2016-12-30] VITALS (7 sets, daily range): BP systolic 108–142; BP diastolic 52–65; PULSE 80–102; TEMP 36.7–37.2; O2SAT 95–99; BMI 30.7
[2016-12-30] MEDS: PIPERACILL/TAZOBAC IV 3.375 GM in DEXTROSE 5% 100ML 100 ML IV SCH ×4 (01:57→23:36)
[2016-12-30] MEDS: SODIUM CHLORIDE 0.9% 1000ML 1,000 ML IV SCH ×3 (01:57→23:02)
[2016-12-30] MEDS: HYDROCORTISONE IV 12.5 MG in SYRINGE 0 ML IV SCH ×3 (02:07→17:52)
[2016-12-30] MEDS: LEVOTHYROXINE 125 MCG TAB PO SCH (05:29)
[2016-12-30] MEDS: INSULIN ASPART 100 UNITS/ML 3 ML PEN SC SCH ×4 (06:30→20:58)
[2016-12-30 07:35] LABS: MEAN CELL VOLUME 91.6 fL (80-100); MEAN CORPUSCULAR HEMOGLOBIN 32.1 pg (25-34); MEAN PLATELET VOLUME 10.9 fL (7.4-10.4); PLATELET COUNT 140 K/uL (130-400); RED BLOOD COUNT 2.62 M/uL (4.7-6.1); WHITE BLOOD COUNT 1.35 K/uL (4.8-10.8)
[2016-12-30 08:01] LABS: BUN/CREATININE RATIO 22.9 (10-20); CREATININE 1.2 mg/dl (0.60-1.40); MAGNESIUM 1.8 mg/dl (1.8-2.4); POTASSIUM 3.6 mmol/L (3.5-5.1)
[2016-12-30 08:07] LABS: CKMB/CK RATIO 1.5 (0-3.0)
--- NOTE | 2016-12-30 08:08 | Hospitalist Progress Note ---
Hospitalist Progress Note Date of Service Dec 30, 2016. (Elinor Jackson PA-C) Subjective Pt evaluation today including: conversation w/ patient, conversation w/ family , physical exam, chart review, lab review, review of studies, review of inpatient medication list Pain: None PO Intake: Good Voiding: jackson catheter in place The patient was seen and examined this morning. His is present at the bedside for conversation. The patient seems a little confused this morning to me , this though process isn't always there and he seems to talk about different subjects. At one point he states "Because you took my money" to his . confirms that he is definitely confused but that he's better than yesterday. He denies any acute complaints. He says its difficult for him to move from bed to the bathroom because of feeling shaky. He admits to some lightheadedness with going from a sit to standing position. Ate breakfast without difficulty. He does report his mouth is sore, and that this started after chemo. Constitutional: + fever, No chills, No sweats Eyes: No discharge ENT: No hearing loss, No nasal symptoms Respiratory: + cough, + dyspnea on exertion, + sputum, No dyspnea at rest, No shortness of breath, No wheezing Cardiovascular: No chest pain, No palpitations Abdomen: + constipation (unable to remember last bm.), No diarrhea, No nausea, No pain, No vomiting Musculoskeletal: No joint pain, No muscle pain Neurologic: + weakness, No numbness/tingling, No vertigo Skin: No itch, No rash (Elinor Jackson PA-C) Objective Vital Signs Date Time Temp Pulse Resp B/P Pulse Ox O2 Delivery O2 Flow Rate FiO2 12/30/16 07:25 36.8 102 20 121/58 96 Nasal Cannula 1.0 12/30/16 04:41 36.7 92 18 114/52 95 12/30/16 04:00 Nasal Cannula 2.0 12/30/16 02:00 Nasal Cannula 2.0 12/30/16 01:00 36.7 86 20 108/55 97 Nasal Cannula 2.0 12/30/16 00:17 91 104/49 97 12/29/16 23:47 95 21 98 12/29/16 23:17 95 16 98 12/29/16 23:12 96 21 119/59 97 Nasal Cannula 2.0 12/29/16 22:42 91 20 97 12/29/16 22:34 36.8 96 18 133/46 98 Nasal Cannula 2.0 12/29/16 22:12 93 19 120/57 99 Nasal Cannula 2.0 12/29/16 21:42 95 20 98 12/29/16 21:37 93 12/29/16 21:12 92 18 126/49 98 Nasal Cannula 2.0 12/29/16 21:00 88 20 126/49 98 Nasal Cannula 2.0 12/29/16 20:42 87 17 97 12/29/16 20:30 37.6 87 14 120/58 98 Nasal Cannula 2.0 12/29/16 20:30 120/58 12/29/16 20:12 89 98 12/29/16 20:00 108/45 12/29/16 20:00 91 16 108/45 97 Nasal Cannula 2.0 12/29/16 19:42 91 97 12/29/16 19:30 111/45 12/29/16 19:12 88 98 12/29/16 19:00 113/54 12/29/16 19:00 89 17 113/54 100 Nasal Cannula 2.0 12/29/16 18:42 88 18 98 12/29/16 18:30 116/63 12/29/16 18:12 85 17 99 12/29/16 18:09 87 16 115/54 99 Nasal Cannula 2.0 12/29/16 18:00 115/45 12/29/16 17:56 86 12/29/16 17:45 105/51 12/29/16 17:42 86 16 98 12/29/16 17:36 84 20 104/61 94 Nasal Cannula 2.0 12/29/16 17:30 104/61 12/29/16 17:16 132/95 12/29/16 17:15 85 18 132/95 99 Room Air 12/29/16 17:12 81 22 100 12/29/16 17:01 84 19 121/51 100 Room Air 12/29/16 17:00 121/51 12/29/16 16:45 116/46 12/29/16 16:42 83 22 99 12/29/16 16:30 104/44 12/29/16 16:23 82 18 102/40 99 Room Air 12/29/16 16:15 102/40 12/29/16 16:15 81 18 97/41 98 Room Air 12/29/16 16:12 82 19 99 12/29/16 16:00 97/41 12/29/16 15:56 82 18 93/39 97 Nasal Cannula 2.0 12/29/16 15:45 93/39 12/29/16 15:42 87 22 98 12/29/16 15:36 87 20 114/51 97 Nasal Cannula 2.0 12/29/16 15:30 114/51 12/29/16 15:25 37.0 85 18 97/43 98 Nasal Cannula 2.0 12/29/16 15:24 97/43 12/29/16 14:59 88 21 103/38 98 Nasal Cannula 2.0 12/29/16 14:59 103/38 12/29/16 14:53 39.0 12/29/16 14:48 104/40 12/29/16 14:48 90 22 104/40 98 Nasal Cannula 2.0 12/29/16 14:42 93 25 98 12/29/16 14:31 98 24 117/44 95 Room Air 12/29/16 14:31 117/44 12/29/16 14:12 100 20 97 12/29/16 14:07 98 21 114/32 97 Nasal Cannula 2.0 12/29/16 14:07 114/32 12/29/16 14:04 97 Nasal Cannula 2.0 12/29/16 13:55 101 12/29/16 13:42 38.6 106 20 118/60 97 Nasal Cannula 2.0 12/29/16 13:42 97 Nasal Cannula 2.0 (Elinor Jackson, PA-C) Physical Exam General Appearance: WD/WN, no apparent distress Eyes: PERRL, EOMI ENT: hearing grossly normal, pharynx normal, + pertinent finding (+ mucositis, + ulceration of the tongue) Neck: supple, thyroid normal Respiratory/Chest: chest non-tender, no accessory muscle use, + pertinent finding (R breath sounds are coarse at bases with rhonchi. No wheezing. Left lung zuñiga are without adventitious breath sounds. ) Abdomen: normal bowel sounds, non tender, no organomegaly, + distended Extremities: non-tender, no pedal edema, no calf tenderness Neurologic/Psychiatric: no motor/sensory deficits, alert, + disoriented ( Oriented to self and president, not town or hospital. ) Skin: normal color, warm/dry (Elinor Jackson, SAM) Laboratory Results Last 24 Hours Test 12/29/16 13:47 12/29/16 13:55 12/29/16 14:23 12/29/16 18:05 White Blood Count 0.85 K/uL Red Blood Count 3.13 M/uL Hemoglobin 9.8 g/dL Hematocrit 28.4 % Mean Corpuscular Volume 90.7 fL Mean Corpuscular Hemoglobin 31.3 pg Mean Corpuscular Hemoglobin Concent 34.5 g/dl Platelet Count 177 K/uL Mean Platelet Volume 11.5 fL Neutrophils (%) (Auto) 9.4 % Lymphocytes (%) (Auto) 78.8 % Monocytes (%) (Auto) 9.4 % Eosinophils (%) (Auto) 2.4 % Basophils (%) (Auto) 0.0 % Neutrophils # (Auto) 0.08 K/uL Lymphocytes # (Auto) 0.67 K/uL Monocytes # (Auto) 0.08 K/uL Eosinophils # (Auto) 0.02 K/uL Basophils # (Auto) 0.00 K/uL RDW Standard Deviation 45.0 fL RDW Coefficient of Variation 13.6 % Immature Granulocyte % (Auto) 0.0 % Immature Granulocyte # (Auto) 0.00 K/uL Giant Platelets 2+ Acanthocytes 1+ Prothrombin Time 10.6 SECONDS Prothromb Time International Ratio 1.0 Sodium Level 136 mmol/L Potassium Level 4.9 mmol/L Chloride Level 102 mmol/L Carbon Dioxide Level 25 mmol/L Anion Gap 9.0 mmol/L Blood Urea Nitrogen 41 mg/dl Creatinine 1.40 mg/dl Estimated GFR () 54.2 Estimated GFR (Non- 46.8 BUN/Creatinine Ratio 29.0 Random Glucose 219 mg/dl Calcium Level 8.5 mg/dl Magnesium Level 2.0 mg/dl Total Bilirubin 1.1 mg/dl Direct Bilirubin 0.3 mg/dl Aspartate Amino Transf (AST/SGOT) 19 U/L Alanine Aminotransferase (ALT/SGPT) 29 U/L Alkaline Phosphatase 63 U/L Total Creatine Kinase 44 U/L Creatine Kinase MB < 0.5 ng/ml Creatine Kinase MB Ratio Troponin I 0.034 ng/ml Total Protein 6.5 gm/dl Albumin 2.8 gm/dl Thyroid Stimulating Hormone (TSH) 0.988 uIu/ml Bedside Lactic Acid Venous 2.02 mmol/L Urine Color YELLOW Urine Appearance CLEAR Urine pH 5.0 Urine Specific [place] 1.013 Urine Protein NEG Urine Glucose (UA) NEG Urine Ketones NEG Urine Occult Blood NEG Urine Nitrite NEG Urine Bilirubin NEG Urine Urobilinogen NEG Urine Leukocyte Esterase NEG Urine WBC (Auto) 0 /hpf Urine RBC (Auto) 0-4 /hpf Urine Hyaline Casts (Auto) 0 /lpf Urine Epithelial Cells (Auto) 0-5 /lpf Urine Bacteria (Auto) NEG Lactic Acid Level 1.9 mmol/L Test 12/29/16 21:30 12/29/16 21:36 12/29/16 23:25 12/30/16 06:54 Influenza Type A (RT-PCR) Neg for Influ A Influenza Type B (RT-PCR) Neg for Influ B Bedside Glucose 172 mg/dl Total Creatine Kinase 59 U/L Creatine Kinase MB < 0.5 ng/ml Creatine Kinase MB Ratio Troponin I 0.060 ng/ml Chemistry Specimen Hemolysis Test 12/30/16 07:00 12/30/16 07:47 White Blood Count 1.35 K/uL Red Blood Count 2.62 M/uL Hemoglobin 8.4 g/dL Hematocrit 24.0 % Mean Corpuscular Volume 91.6 fL Mean Corpuscular Hemoglobin 32.1 pg Mean Corpuscular Hemoglobin Concent 35.0 g/dl Platelet Count 140 K/uL Mean Platelet Volume 10.9 fL RDW Standard Deviation 45.1 fL RDW Coefficient of Variation 13.4 % Sodium Level 136 mmol/L Potassium Level 3.6 mmol/L Chloride Level 104 mmol/L Carbon Dioxide Level 23 mmol/L Anion Gap 9.0 mmol/L Blood Urea Nitrogen 28 mg/dl Creatinine 1.20 mg/dl Est Creatinine Clear Calc Drug Dose 58.2 ml/min Estimated GFR () 65.3 Estimated GFR (Non- 56.4 BUN/Creatinine Ratio 22.9 Random Glucose 120 mg/dl Calcium Level 8.0 mg/dl Magnesium Level 1.8 mg/dl Bedside Glucose 134 mg/dl (Elinor Jackson PA-C) Assessment and Plan 81-year-old male hx NSC lung CA, presents emergency department with altered mental status, fever, nausea diarrhea and upper respiratory symptoms. Meets sepsis criteria in the setting of neutropenic fever. Hypotensive, tachycardic and febrile. Infiltrate at the right base noted. Metabolic encephalopathy secondary to sepsis, RLL pneumonia, in the setting of neutropenic fever - Continue broad-spectrum antibiotics with vancomycin, Levaquin and Zosyn. This should cover the patient's history of growing Pseudomonas with bronchial brushings in 2013. - CT scan with ? perinephritic stranding bilaterally- will monitor for any signs of infection, pt currently does NOT have urinary symptoms. Follow urine culture. -In the setting of diarrhea, send C. difficile, stool cultures - follow, not collected yet -Continue IV fluids. Patient received a total 2 L normal saline bolus in the ED. If BP remains stable, NS @ 100 cc hr. Watch for signs of fluid overload -Follow CBC -Consult oncology Mucositis - Tongue is swollen, + ulcerations on the border of tounge, and palate is erythematous - Will order magic swizzle for pain relief. Tachycardia - Monitor strip overnight showing possible irregular rhythm. ? no history of afib. PT denies any chest complaints. - Trop is slightly elevated at 0.63 but not significant from the other two. - Checking EKG 12 lead now History of CAD, CABG, aortic stenosis status post AVR with porcine bioprosthesis in 2006 -Continue medical management as noted below: Aspirin 81 mg daily, Plavix 75 mg daily, Cardizem to 240 mg daily, metoprolol extended release 50 mg daily, atorvastatin 80 mg daily Hypertension -Hold Benicar 40 mg daily for mild elevation in creatinine -Also hold home dose of Lasix, which is typically 40 mg in the morning and 20 mg at night Diabetes mellitus -Hold typical oral agents of Januvia 1 her milligrams in the morning and metformin 2000 mg in the morning -Continue Lantus 8 units daily -Cover with an insulin sliding scale -Check hemoglobin A1c given the patient's history of noncompliance History of upper GI bleed -Continue pantoprazole 40 mg twice daily History of COPD -Continue Spiriva daily -Duo nebs every 6 hours as needed -Continue Breo daily History of chronic pain -This is reportedly why the patient is taking prednisone 5 mg daily. Given this low dose, no stress dose needed at this time. Hypothyroidism -Continue Synthroid 125 g daily -Check TSH DVT prophylaxis -Heparin 5000 units subcutaneous BID -TEDS, SCDs CODE STATUS: FULL CODE Disposition: From home, follow cultures, checking EKG. (Elinor Jackson PA-C) Attending Attestation: Pt seen/examined, chart reviewed, care plan d/w ONEYDA Jackson. I agree w/ the becerra components of her documentation. Pt c/o mouth pain/sores, severe cough, insomnia, he and family WANT JACKSON TAKEN OUT, mild confusion. vitals - no fever since admission BPs, O2 sats, RR adequate gen - coughing, looks ill but interactive and gives lots of historical details mouth - thrush with mucositis, MM dry neck - no JVD heart - RRR lungs - dense rales right base, minimal rale left base, b/l end-exp wheeze; no increased work of breathing abd - soft ext - no edema labs - ANC < 100 Cr 1.2 A/P: 1. severe neutropenia 2nd to recent chemo s/p neupogen today; daily CBC 2. neutropenic fever and severe sepsis 2nd to RLL pneumonia 3. RLL pneumonia - at risk for gram negatives, MRSA, typicals; completed 10- day course of levaquin about 2-3 weeks ago cont zosyn, vanco; add zithromax for atypical coverage 4. acute hypoxic resp failure 2nd to #3 - ongoing 5. COPD - add scheduled duonebs 6. thrush - add diflucan 7. mucositis - add scheduled q6h magic mouthwash 8. insomnia - will give tussionex at HS; may help cough and sleep 9. ok to d/c jackson per pt request family extensively updated at bedside Juan ASTUDILLO MD (Luis Alberto Astudillo MD)
[2016-12-30 08:43] LABS: ACANTHOCYTES 1+
[2016-12-30 08:44] LABS: COMPLETE YES; EOSINOPHIL % 2.6 %; LYMPH ABS # 1.14 K/uL (1.2-3.4); LYMPHOCYTE % 84.2 %; NEUTROPHILS % 4.4 %
[2016-12-30 08:49] LABS: DOHLE BODIES 1+; HYPOSEGMENTED POLYS 1+; TOXIC GRANULATION 1+
--- NOTE | 2016-12-30 09:02 | ONCOLOGY CONSULTATION ---
DATE OF CONSULTATION: 12/30/2016 REASON FOR CONSULTATION: Neutropenic fever. HISTORY OF PRESENT ILLNESS: Mr. De Leon is a very pleasant 81-year-old gentleman, well known to [facility], currently under the care of Dr. Cedeño for recurrent nonsmall cell lung cancer. The patient developed low-grade fever yesterday while consulting with the physicians at [facility]. He had recently received his first course of carboplatin and paclitaxel in combination. The exact date of administration was December 16. According to his en route to return home, Mr. De Leon developed some confusion, agitation and garbled speech. He had also been complaining of intermittent constipation and diarrhea and utilized copious laxatives and antidiarrheals for relief of both. Apparently, he was suffering from pneumonia, had recently completed a 10-day course of Levaquin 750 mg p.o. q. daily. His overall performance status is reasonable. He has been eating and drinking normally over the past several days. He denies any pain at this time. Upon presentation to [facility], he was found to have an ANC of 80. His creatinine is slightly above baseline, measuring 1.4. CT of the abdomen and pelvis as well as chest x-ray confirmed the presence of a right lower lobe infiltrate. He is currently on broad spectrum antibiotics and receiving IV hydration. Mr. De Leon had been previously treated with Opdivo, he estimates 2 years, maintaining stable disease until recently and upon disease progression, was started on combination of carboplatin and paclitaxel. PAST MEDICAL HISTORY: Again, significant for nonsmall cell lung cancer, peripheral vascular disease, type 2 diabetes mellitus, obstructive sleep apnea, COPD, gastrointestinal bleeding, duodenal ulcers in 2013, bronchial washings grew out Pseudomonas in 2013, hyperlipidemia, coronary artery disease and aortic stenosis status post AVR and CABG x2 in 2006, status post cataract surgery and knee surgery. FAMILY HISTORY: Significant for cardiovascular disease. SOCIAL HISTORY: The patient is a reformed smoker, quit in 2006. He is , retired. Negative for alcohol or drug use. MEDICATIONS: Include aspirin 81 mg p.o. q. daily, atorvastatin 80 mg p.o. q. daily, cholecalciferol 1000 international units p.o. b.i.d., Plavix 75 mg p.o. q. daily, Coenzyme Q 100 mg p.o. q. daily, cyanocobalamin 1000 mcg p.o. daily, diltiazem 1 capsule p.o. q. daily, ferrous sulfate 325 mg p.o. q. daily, fish oil 1000 mg p.o. q. daily, Breo Ellipta 1 inhalation p.o. q. daily, furosemide 40 mg in the a.m. and 20 mg in the p.m., glucosamine chondroitin 1500 mg p.o. q. daily, insulin Glargine 8 units subQ q.p.m., levothyroxine sodium 125 mcg p.o. q.a.m., metformin 2000 mg p.o. q.a.m., metoprolol 50 mg p.o. q.a.m., multivitamin 1 p.o. q. daily, Benicar 40 mg p.o. q.a.m., Protonix 40 mg p.o. b.i.d., potassium chloride 20 mEq p.o. q. daily, prednisone 5 mg p.o. q. daily, Januvia 100 mg p.o. q. daily, and Spiriva HandiHaler 1 capsule inhalation q.p.m. ALLERGIES: SULFA ANTIBIOTICS. REVIEW OF SYSTEMS: As per HPI most notably for a low grade fever, confusion and agitation. SKIN: Without rash or lesion. No history of dermatoses. HEENT: Negative for headaches, lightheadedness or dizziness. No visual or hearing deficits. No sinus symptoms. Positive for mucositis and irritation of mucous membranes secondary to chemotherapeutic effect. LYMPH: No history of lymphoproliferative disorder. CARDIAC: Positive history of coronary artery disease. No current angina or palpitations. PULMONARY: Prior diagnosis of pneumonia. No acute shortness of breath. He is not dyspneic or coughing at this time. He reports no hemoptysis. GASTROINTESTINAL: Positive for intermittent diarrhea and constipation. No active nausea and vomiting. No abdominal pain per se. GENITOURINARY: No hematuria, dysuria, or urinary incontinence. PSYCHIATRIC: Negative for anxiety, depression or psychoses. ENDOCRINE: Positive for hypothyroidism. NEUROLOGIC: Negative for seizure, stroke, or migraine headache. HEMATOLOGIC: Positive for neutropenia and treatment induced anemia. PHYSICAL EXAMINATION: GENERAL: Mr. De Leon is a very pleasant 81-year-old gentleman in no acute distress. VITAL SIGNS: Temperature 36.7, pulse 92, respirations 18, and blood pressure 114/52. SKIN: Warm, dry, and noncyanotic without petechia, rash or ecchymosis. HEENT: HEAD: Atraumatic and normocephalic. EYES: PERRLA, EOMI. Sclerae nonicteric. No conjunctival injection. NARES: Patent without rhinorrhea or discharge. Throat is clear. Buccal mucosa erythematous and irritated suggestive of underlying mucositis. NECK: Supple without JVD or thyromegaly. LYMPH: No cervical, supraclavicular, or axillary palpable nodes. HEART: Regular rate and rhythm. No clicks, rubs, murmurs or gallops. LUNGS: Increased crackles in the right posterior base posteriorly. ABDOMEN: Soft, nontender, and nondistended without palpable hepatosplenomegaly. EXTREMITIES: No calf tenderness or swelling. No clubbing, cyanosis or edema. Pulses and strength are equal. NEUROLOGICALLY: He is awake, alert and oriented x3. Cranial nerves are intact. No gross motor or sensory deficits are noted. LABORATORY DATA: Blood and urine cultures pending. WBC count 1350, hemoglobin 8.4, and platelet count 140,000. Chemistries pending at time of dictation. RADIOGRAPHIC DATA: CT scan of the abdomen and pelvis confirms the presence of a right lower lobe infiltrate, otherwise unremarkable. IMPRESSION: 1. Neutropenic fever. 2. Chemotherapy-induced anemia. 3. Right lower lobe pneumonia. 4. Nonsmall cell lung cancer. PLAN: I was asked to visit with Mr. De Leon, who was admitted overnight with low grade fever, confusion and agitation. He is currently under the care of Dr. Cedeño for persistent nonsmall cell lung cancer. He was recently started on carboplatin and paclitaxel. He was consulting with the physicians at the [facility] for further recommendations regarding his lung cancer. En route home, developed low grade fever and proceeded to the Emergency Room. Thus far, cultures are negative; however, radiographs suggested persistent right lower lobe infiltrate and is currently receiving antibiotics. We will add a daily Neupogen 480 mcg over the next couple of days. Continue to monitor cultures and adjust antibiotics to sensitivities as clinically appropriate. We will defer any further treatment decisions to Dr. Cedeño when Mr. De Leon is medically stable. I will advise Dr. Cedeño of his admission in the hospital and ensure appropriate outpatient followup was established. Thank you very much for allowing us to participate in his care. MIGUEL
[2016-12-30] MEDS: PANTOprazole SOD 40 MG TAB PO SCH ×2 (09:06→20:48)
[2016-12-30] MEDS: VANCOMYCIN INJ 1,500 MG in SODIUM CHLORIDE 0.9% 500ML 500 ML IV SCH ×2 (09:06→23:59)
[2016-12-30] MEDS: ASPIRIN 81 MG ECTAB PO SCH (09:06)
[2016-12-30] MEDS: DILTIAZEM HCL 240 MG CAPCR PO SCH (09:06)
[2016-12-30] MEDS: METOPROLOL SUCC 50MG EXT REL TAB PO SCH (09:07)
[2016-12-30] MEDS: HEPARIN SOD 5000 UNIT/0.5 ML CARP SQ SCH ×2 (09:09→20:59)
[2016-12-30] MEDS: CLOPIDOGREL BISULFATE 75 MG TAB PO SCH (09:12)
[2016-12-30] MEDS ORDERED: MAGIC SWIZZLE PO PRN (09:45)
[2016-12-30] MEDS: FILGRASTIM 480 MCG/1.6 ML VIAL SC SCH (10:51)
[2016-12-30] MEDS ORDERED: MAGIC MOUTHWASH PO PRN (11:00)
[2016-12-30] MEDS ORDERED: DEXAMETHASONE CONC SOLN 3.75 MG, NYSTATIN SUSP 30 ML, DiphenhydrAMINE HCL SYRUP 300 MG,... PO PRN ×5 (13:15)
[2016-12-30] MEDS: LIDOCAINE HCL 2% VISCOUS SOLN 60 ML, DiphenhydrAMINE HCL SYRUP 150 MG, ALUMINUM/MAGNESI... MT PRN ×8 (13:57→16:31)
[2016-12-30] MEDS ORDERED: LEVOFLOXACIN / D5W 750 MG in PREMIXED IN D5W 150 ML IV SCH (15:00)
[2016-12-30] MEDS: DEXAMETHASONE CONC SOLN 3.75 MG, NYSTATIN SUSP 30 ML, DiphenhydrAMINE HCL SYRUP 300 MG,... PO SCH ×10 (17:00→18:00)
[2016-12-30] MEDS: ALBUT/IPRATROP 3MG/0.5MG NEB 3 ML VIAL INH SCH ×2 (18:00→21:00)
[2016-12-30] MEDS ORDERED: FLUCONAZOLE 100 MG TAB PO ONE (18:45)
[2016-12-30] MEDS ORDERED: AZITHROMYCIN IV 500 MG in DEXTROSE 5% 250ML 250 ML IV ONE (20:45)
[2016-12-30] MEDS: CHLORPH/HYDROCOD EXT REL LIQ 5ML UDP PO SCH (20:45)
[2016-12-30] MEDS: TIOTROPIUM BROMIDE 5 PUFF/90 MCG INH INH SCH (20:45)
[2016-12-30] MEDS: GUAIFENESIN 600 MG TABCR PO SCH (20:46)
[2016-12-30] MEDS: ATORVASTATIN 40 MG TAB PO SCH (20:47)
[2016-12-30] MEDS: INSULIN GLARGINE SOLOSTAR 100 UNITS/ML 3 ML PEN SC SCH (20:58)
[2016-12-30] MEDS ORDERED: GUAIFENESIN 600 MG TABCR PO SCH (21:00)
[2016-12-30] MEDS ORDERED: MAGIC MOUTHWASH PO SCH (22:30)
[2016-12-31] VITALS (12 sets, daily range): BP systolic 90–163; BP diastolic 46–62; PULSE 61–97; TEMP 36.8–37.8; O2SAT 92–96
[2016-12-31] MEDS: HYDROCORTISONE IV 12.5 MG in SYRINGE 0 ML IV SCH ×3 (02:00→17:27)
[2016-12-31] MEDS: ALBUT/IPRATROP 3MG/0.5MG NEB 3 ML VIAL INH SCH ×4 (02:46→20:58)
[2016-12-31] MEDS ORDERED: FUROSEMIDE INJ 40 MG in SYRINGE 0 ML IV ONE ×2 (04:00→13:45)
[2016-12-31] MEDS: DEXAMETHASONE CONC SOLN 3.75 MG, NYSTATIN SUSP 30 ML, DiphenhydrAMINE HCL SYRUP 300 MG,... PO SCH ×25 (05:58→23:47)
[2016-12-31] MEDS: PIPERACILL/TAZOBAC IV 3.375 GM in DEXTROSE 5% 100ML 100 ML IV SCH ×3 (05:58→23:11)
[2016-12-31] MEDS: LEVOTHYROXINE 125 MCG TAB PO SCH (05:59)
--- NOTE | 2016-12-31 06:44 | DIAGNOSTIC IMAGING REPORT ---
CHEST ONE VIEW PORTABLE CLINICAL HISTORY: Congestive failure COMPARISON STUDY: 12/29/2016 FINDINGS: There are postsurgical changes of a midline sternotomy. The heart is enlarged. There is elevation of the interstitium consistent with congestive failure/fluid overload. Right perihilar airspace opacities likely represent focal edema. There is a suspected small subpulmonic right pleural effusion.[ IMPRESSION: Radiographic evidence of mild congestive failure/fluid overload. Right perihilar airspace opacities, likely representing focal edema. Electronically signed by: Thor Alexis M.D. 12/31/2016 6:42 AM Dictated Date/Time: 12/31/2016 6:42 AM
[2016-12-31 07:26] LABS: BUN/CREATININE RATIO 19.1 (10-20); CREATININE 1.1 mg/dl (0.60-1.40); POTASSIUM 3.2 mmol/L (3.5-5.1)
[2016-12-31 08:11] LABS: HEMATOCRIT 25.4 % (42-52); MEAN CELL VOLUME 91.4 fL (80-100); MEAN CORPUSCULAR HEMOGLOBIN 31.7 pg (25-34); MEAN CORPUSCULAR HGB CONC 34.6 g/dl (32-36); MEAN PLATELET VOLUME 11.4 fL (7.4-10.4); PLATELET COUNT 166 K/uL (130-400); RED BLOOD COUNT 2.78 M/uL (4.7-6.1); WHITE BLOOD COUNT 2.21 K/uL (4.8-10.8)
[2016-12-31 08:12] LABS: ACANTHOCYTES 1+; COMPLETE YES; EOS % 1.4 %; GIANT PLATELETS 2+; LYMPH % 36.7 %; LYMPH ABS # 0.81 K/uL (1.2-3.4); MONO % 39.8 %; NEUT % 22.1 %; POLYCHROMASIA 1+
[2016-12-31] MEDS ORDERED: POTASSIUM CHLORIDE 20 MEQ/15 ML UDC PO ONE (08:30)
--- NOTE | 2016-12-31 08:33 | HEME/ONC PROGRESS NOTE ---
DATE: 12/31/2016 DATE: 12/31/2016. DIAGNOSES: 1. Neutropenic fever. 2. Oral mucositis. 3. Right lower lobe pneumonia. 4. Nonsmall cell lung cancer. HISTORY OF PRESENT ILLNESS: Mr. De Leon is a very pleasant 81-year-old gentleman, known to [facility] currently under the care of Dr. Cedeño for recurrent nonsmall cell lung cancer. He was admitted with low-grade fever yesterday, pancultured and started on empiric antibiotics. Magic mouthwash was added for oral mucositis. Clinically, doing a little bit better today. I guess he was out in a chair, sitting up in chair briefly. Appetite has not been vigorous, attributable to oral pain. Neupogen was administered yesterday and he is due for second dose today. Peripheral blood counts are pending at the time of this dictation. PHYSICAL EXAMINATION: GENERAL: He is in no acute distress. VITAL SIGNS: Temperature 37.2, pulse 86, respirations 20, and blood pressure 163/57. SKIN: Without rash or lesion. HEENT: Oral mucosa erythematous, raw dry. No evidence of thrush. NECK: Supple. HEART: Regular rate and rhythm. No clicks, rubs or murmurs. LUNGS: Clear to auscultation with the exception of fine crackles in the right posterior base. ABDOMEN: Soft, nontender, and nondistended. EXTREMITIES: No clubbing, cyanosis or edema. NEUROLOGIC: Grossly intact. LABORATORY DATA: Blood cultures, no growth to date. Urine culture, pending. Chemistries: Sodium 136, potassium 3.2, chloride 104, carbon dioxide 22, BUN 21, and creatinine 1.1. IMPRESSION: 1. Neutropenic fever. 2. Oral mucositis. 3. Nonsmall cell lung cancer. 4. Right lower lobe pneumonia. PLAN: Mr. De Leon was seen and examined at bedside today. He seems to be making some modest improvement. Appetite is suboptimal at this point, which should improve as mucositis resolves. Continue Magic mouthwash p.r.n. Cultures thus far are negative. Nonetheless, would continue broad spectrum antibiotics until the final. Will continue Neupogen 480 mcg over the next day or two. Again, further treatment recommendations will be deferred to Dr. Cedeño. Thank you again for allowing us to participate in Mr. De Leon.
[2016-12-31] MEDS: PANTOprazole SOD 40 MG TAB PO SCH ×2 (08:52→20:59)
[2016-12-31] MEDS: ASPIRIN 81 MG ECTAB PO SCH (08:52)
[2016-12-31] MEDS: FLUCONAZOLE 100 MG TAB PO SCH (08:53)
[2016-12-31] MEDS: GUAIFENESIN 600 MG TABCR PO SCH ×2 (08:53→20:58)
[2016-12-31] MEDS: CLOPIDOGREL BISULFATE 75 MG TAB PO SCH (08:53)
[2016-12-31] MEDS: DILTIAZEM HCL 240 MG CAPCR PO SCH (08:54)
[2016-12-31] MEDS: METOPROLOL SUCC 50MG EXT REL TAB PO SCH (08:54)
[2016-12-31] MEDS: HEPARIN SOD 5000 UNIT/0.5 ML CARP SQ SCH ×2 (08:58→21:21)
[2016-12-31] MEDS: INSULIN ASPART 100 UNITS/ML 3 ML PEN SC SCH ×4 (08:59→21:18)
[2016-12-31] MEDS: FILGRASTIM 480 MCG/1.6 ML VIAL SC SCH (09:02)
[2016-12-31] MEDS ORDERED: NURSING VERBAL MED ORDER ONE (13:30)
[2016-12-31] MEDS ORDERED: POTASSIUM CHLORIDE 10 MEQ TABCR PO ONE (13:45)
[2016-12-31] MEDS ORDERED: VANCOMYCIN TROUGH SCH (15:30)
[2016-12-31] MEDS: VANCOMYCIN INJ 1,500 MG in SODIUM CHLORIDE 0.9% 500ML 500 ML IV SCH (16:12)
[2016-12-31] MEDS: TIOTROPIUM BROMIDE 5 PUFF/90 MCG INH INH SCH (20:57)
[2016-12-31] MEDS: ATORVASTATIN 40 MG TAB PO SCH (20:58)
[2016-12-31] MEDS: AZITHROMYCIN IV 250 MG in DEXTROSE 5% 250ML 250 ML IV SCH (21:14)
[2016-12-31] MEDS: CHLORPH/HYDROCOD EXT REL LIQ 5ML UDP PO SCH (21:14)
[2016-12-31] MEDS: INSULIN GLARGINE SOLOSTAR 100 UNITS/ML 3 ML PEN SC SCH (21:20)
[2017-01-01] VITALS (13 sets, daily range): BP systolic 134–151; BP diastolic 56–68; PULSE 72–107; TEMP 36.5–37.6; O2SAT 92–96
--- NOTE | 2017-01-01 00:51 | Progress Note ---
Subjective Date of Service: late entry for visit Dec 31, 2016. Subjective Pt evaluation today including: conversation w/ patient, conversation w/ family ( at bedside), physical exam, chart review, lab review, review of studies ( cxr), conversation w/ trial consultant (heme/onc), review of inpatient medication list Pain: denies PO Intake: improved today per Voiding: meadows catheter in place overnight - patient developed worsening respiratory status; cxr obtained in the middle of the night - showed CHF and given IV lasix after IVF were d/c. he diuresed 2 liters of fluid. meadows was d/c yesterday and ultimately was put back due to low UOP and difficulty voiding. he continues to have mild confusion. mouth pain is modestly improved. Problem List Medical Problems: (1) Fever Status: Acute (2) Neutropenic fever Status: Acute (3) PNA (pneumonia) Status: Acute (4) Severe sepsis Status: Acute Review of Systems Constitutional: + fatigue, No chills, No fever Respiratory: + cough, + dyspnea on exertion, + sputum, + wheezing Cardiac: No chest pain, No orthopnea Abdomen: No pain Objective Vital Signs Date Time Temp Pulse Resp B/P Pulse Ox O2 Delivery O2 Flow Rate FiO2 12/31/16 23:00 37.0 93 20 123/54 94 CPAP 12/31/16 20:58 72 20 95 Nasal Cannula 2.0 12/31/16 20:00 Room Air 12/31/16 19:35 37.8 61 20 90/46 94 Room Air 12/31/16 16:00 Room Air 12/31/16 14:59 37.3 97 18 110/50 96 Room Air 12/31/16 14:20 75 20 96 Nasal Cannula 2.0 12/31/16 12:00 Nasal Cannula 2.0 12/31/16 11:37 37.2 88 20 144/52 96 Nasal Cannula 2.0 12/31/16 08:00 Nasal Cannula 2.0 12/31/16 07:38 67 20 94 Nasal Cannula 2.0 12/31/16 07:27 37.2 86 20 163/57 95 Nasal Cannula 2.0 12/31/16 04:00 36.8 89 18 153/62 95 CPAP 12/31/16 04:00 92 Nasal Cannula 2.0 BiPAP 12/31/16 02:46 67 20 94 BiPAP/CPAP 2.0 Physical Exam General Appearance: no apparent distress ENT: + pertinent finding (thrush and mucositis - both improved; MMM) Neck: + JVD (very mild) Respiratory/Chest: no respiratory distress, no accessory muscle use, + crackles (b/l bases, worse on right) Cardiovascular: regular rate, rhythm, no gallop Abdomen: normal bowel sounds, non tender, soft, no organomegaly Extremities: no pedal edema Neurologic/Psychiatric: alert, + pertinent finding (a/o x 3 but mild confusion noted) Laboratory Results Last 24 Hours Test 12/31/16 06:13 12/31/16 07:45 12/31/16 11:47 12/31/16 15:42 White Blood Count 2.21 K/uL Red Blood Count 2.78 M/uL Hemoglobin 8.8 g/dL Hematocrit 25.4 % Mean Corpuscular Volume 91.4 fL Mean Corpuscular Hemoglobin 31.7 pg Mean Corpuscular Hemoglobin Concent 34.6 g/dl Platelet Count 166 K/uL Mean Platelet Volume 11.4 fL Neutrophils (%) (Auto) 22.1 % Lymphocytes (%) (Auto) 36.7 % Monocytes (%) (Auto) 39.8 % Eosinophils (%) (Auto) 1.4 % Basophils (%) (Auto) 0.0 % Neutrophils # (Auto) 0.49 K/uL Lymphocytes # (Auto) 0.81 K/uL Monocytes # (Auto) 0.88 K/uL Eosinophils # (Auto) 0.03 K/uL Basophils # (Auto) 0.00 K/uL RDW Standard Deviation 44.4 fL RDW Coefficient of Variation 13.2 % Immature Granulocyte % (Auto) 0.0 % Immature Granulocyte # (Auto) 0.00 K/uL Giant Platelets 2+ Polychromasia 1+ Acanthocytes 1+ Sodium Level 136 mmol/L Potassium Level 3.2 mmol/L Chloride Level 104 mmol/L Carbon Dioxide Level 22 mmol/L Anion Gap 10.0 mmol/L Blood Urea Nitrogen 21 mg/dl Creatinine 1.10 mg/dl Est Creatinine Clear Calc Drug Dose 63.4 ml/min Estimated GFR () 72.6 Estimated GFR (Non- 62.6 BUN/Creatinine Ratio 19.1 Random Glucose 164 mg/dl Calcium Level 8.0 mg/dl Magnesium Level 1.9 mg/dl Bedside Glucose 169 mg/dl 184 mg/dl Ammonia < 10.0 umol/L Vancomycin Level Trough 13.9 mcg/ml Test 12/31/16 16:23 12/31/16 21:10 Bedside Glucose 210 mg/dl 231 mg/dl Assessment and Plan 81yo male with: 1. severe neutropenia 2nd to recent chemo s/p neupogen - improving slowly. 2. neutropenic fever and severe sepsis 2nd to RLL pneumonia - improved. Cont broad-spectrum antibiotics. 3. RLL pneumonia - at risk for gram negatives, MRSA, typicals; completed 10- day course of levaquin about 2-3 weeks ago cont zosyn, vanco; zithromax for atypical coverage day #3 of abx. plan 7 days, possibly longer. 4. acute hypoxic resp failure 2nd to #3 and acute/chronic diastolic CHF - ongoing 5. COPD - scheduled duonebs + steroids IV 6. thrush - diflucan, day #2 - improved. 7. mucositis - scheduled q6h magic mouthwash - improved. 8. insomnia - tussionex at HS - helped last pm per . 9. acute/chronic diastolic CHF - improved s/p lasix last night. give another dose this afternoon. fluids have been d/c. 10. hypothyroidism - cont synthroid. TSH shows compensation. 11. DVT proph - heparin SC. 12. PT, OT consults 13. metabolic encephalopathy - improved. Supportive care. Check ammonia level to be complete. 14. ANA - CPAP HS. 15. acute kidney injury - resolved. 2nd to sepsis. 16. T2DM - control reasonable in light of illness. Adjust insulin as needed. extensively updated at bedside Continued [facility] stay due to: abnormal vital signs, inadequate po fluid intake, voiding difficulties, ambulation difficulties, multiple IV medications needed Discharge planning: uncertain
[2017-01-01] MEDS: ALBUT/IPRATROP 3MG/0.5MG NEB 3 ML VIAL INH SCH ×4 (02:13→19:46)
[2017-01-01] MEDS: HYDROCORTISONE IV 12.5 MG in SYRINGE 0 ML IV SCH (02:24)
[2017-01-01] MEDS: LEVOTHYROXINE 125 MCG TAB PO SCH (05:48)
[2017-01-01] MEDS: DEXAMETHASONE CONC SOLN 3.75 MG, NYSTATIN SUSP 30 ML, DiphenhydrAMINE HCL SYRUP 300 MG,... PO SCH ×15 (05:48→17:28)
[2017-01-01] MEDS: PIPERACILL/TAZOBAC IV 3.375 GM in DEXTROSE 5% 100ML 100 ML IV SCH ×2 (05:48→14:11)
[2017-01-01 06:56] LABS: HEMATOCRIT 24.3 % (42-52); MEAN CORPUSCULAR HEMOGLOBIN 31.5 pg (25-34); MEAN CORPUSCULAR HGB CONC 35.4 g/dl (32-36); MEAN PLATELET VOLUME 11.1 fL (7.4-10.4); PLATELET COUNT 217 K/uL (130-400); RED BLOOD COUNT 2.73 M/uL (4.7-6.1); WHITE BLOOD COUNT 7.59 K/uL (4.8-10.8)
[2017-01-01 07:31] LABS: CALCIUM 7.7 mg/dl (8.5-10.1); CREATININE 1.1 mg/dl (0.60-1.40); POTASSIUM 3.5 mmol/L (3.5-5.1)
[2017-01-01 07:50] LABS: BASO % 0.1 %; BASO ABS # 0.01 K/uL (0-0.2); COMPLETE YES; DOHLE BODIES 3+; EOS % 0.4 %; IG% 1.1 %; LARGE PLATELETS 1+; LYMPH % 11.3 %; LYMPH ABS # 0.86 K/uL (1.2-3.4); MONO % 13.7 %; NEUT % 73.4 %; TOXIC GRANULATION 2+
[2017-01-01] MEDS: VANCOMYCIN INJ 1,500 MG in SODIUM CHLORIDE 0.9% 500ML 500 ML IV SCH (08:01)
[2017-01-01] MEDS: DILTIAZEM HCL 240 MG CAPCR PO SCH (08:46)
[2017-01-01] MEDS: ASPIRIN 81 MG ECTAB PO SCH (08:49)
[2017-01-01] MEDS: LANSOPRAZOLE SOLUTAB 30 MG PO SCH ×2 (08:49→21:24)
[2017-01-01] MEDS: PANTOprazole SOD 40 MG TAB PO SCH ×2 (08:49→21:24)
[2017-01-01] MEDS: GUAIFENESIN 600 MG TABCR PO SCH ×2 (08:49→21:17)
[2017-01-01] MEDS: FLUCONAZOLE 100 MG TAB PO SCH (08:50)
[2017-01-01] MEDS: METOPROLOL SUCC 50MG EXT REL TAB PO SCH (08:50)
[2017-01-01] MEDS: FILGRASTIM 480 MCG/1.6 ML VIAL SC SCH (08:55)
[2017-01-01] MEDS: INSULIN ASPART 100 UNITS/ML 3 ML PEN SC SCH ×4 (09:04→21:31)
[2017-01-01] MEDS: HEPARIN SOD 5000 UNIT/0.5 ML CARP SQ SCH ×2 (09:04→21:32)
[2017-01-01] MEDS ORDERED: LACTULOSE SYRUP 30 GM/45 ML UDP PO PRN (09:15)
--- NOTE | 2017-01-01 09:26 | Pharmacy Progress Note ---
Pharmacy Antibiotic Prog Note Date of Service: Jan 01, 2017. Subjective: The patient is currently receiving vancomycin 1500 mg q 16 hrs, zosyn 3.375 gm iv q 8 hrs, and azithromycin 250 mg iv q 24 hrs for PNA The patient is currently on day # 4 of IV therapy. Objective: Height (Feet): 5 Height (Inches): 11.00 Weight (Kilograms): 99.600 Levels: Item Value Date Time Vancomycin Level Trough 13.9 mcg/ml 12/31/16 1542 Lab Results (24hrs): Laboratory Tests Test 01/01/17 06:11 BUN/Creatinine Ratio 16.0 Blood Urea Nitrogen 18 mg/dl Creatinine 1.10 mg/dl White Blood Count 7.59 K/uL Red Blood Count 2.73 M/uL Hemoglobin 8.6 g/dL Hematocrit 24.3 % Mean Corpuscular Volume 89.0 fL Mean Corpuscular Hemoglobin 31.5 pg Mean Corpuscular Hemoglobin Concent 35.4 g/dl Platelet Count 217 K/uL Mean Platelet Volume 11.1 fL Neutrophils (%) (Auto) 73.4 % Lymphocytes (%) (Auto) 11.3 % Monocytes (%) (Auto) 13.7 % Eosinophils (%) (Auto) 0.4 % Basophils (%) (Auto) 0.1 % Neutrophils # (Auto) 5.57 K/uL Lymphocytes # (Auto) 0.86 K/uL Monocytes # (Auto) 1.04 K/uL Eosinophils # (Auto) 0.03 K/uL Basophils # (Auto) 0.01 K/uL Micro Results: Item Value Date Time Gram Stain - Final Complete 12/31/16 1900 Sputum Expectorated Sputum MRSA DNA Surveillance Screen - Final Complete 12/30/16 1745 Nasal Specimen Negative for MRSA by DNA Probe Blood Culture - Preliminary Resulted 12/29/16 1430 Blood NO GROWTH TO DATE. Urine Culture - Preliminary Resulted 12/29/16 1423 Urine,Catheterized NO GROWTH - LESS THAN 1,000 COLONIES/... Blood Culture - Preliminary Resulted 12/29/16 1347 Blood NO GROWTH TO DATE. Assessment & Plan: Patient on vancomycin, zosyn, and azithromycin for possible PNA. BC x 2 are no growth, MRSA nasal swab negative, urine culture no growth, negative influenza A/ B. Per MD note, patient respiratory status worsening overnight. Sputum culture collected however requires repeat collection. Patient previously treated with a course of levaquin prior to admission and is immunocompromised (hx of cancer) Vancomycin: * Trough level this am was ~14 mcg/ml (goal 15-20 mcg/ml for PNA) ; level was drawn before steady state therefore level probably >15 mcg/ml * Will continue with current regimen of vancomycin 1500 mg iv q 16 hrs * Will plan to repeat trough level prior to the 1600 dose on 01/02 to ensure therapeutic Zosyn: * 3.375 gm iv q 8 hrs ; appropriate for CrCl >20 ml/min (actual ~63 ml/min) ; no changes necessary Pharmacy will continue to follow and will adjust dose/frequency as necessary. Thank you
--- NOTE | 2017-01-01 09:28 | HEME/ONC PROGRESS NOTE ---
DATE: 12/31/2016 DIAGNOSES: 1. Neutropenic fever. 2. Oral mucositis. 3. Right lower lobe pneumonia. 4. Nonsmall cell lung cancer. HOSPITAL COURSE: Mr. De Leon is a very pleasant 81-year-old gentleman well known to [facility], currently under the care of Dr. Cedeño for recurrent nonsmall cell lung cancer. Clinically, he seems to be holding his own, but would like to see him a bit more awake and alert. Apparently, received hydrocodone based cough syrup overnight, which may be affecting his mentation. He has really not been eating vigorously as he continues to complain of mouth pain. Hopefully, over the next day or two, this will improve. He is also not moved his bowels in several days. His neutrophil count has fully recovered and therefore, can discontinue neutropenic precautions. He continues on broad spectrum antimicrobials. PHYSICAL EXAMINATION: GENERAL: He is in no acute distress, awake, alert, and somewhat disoriented to time and place. VITAL SIGNS: Temperature 36.5, pulse 96, respiratory rate 16, and blood pressure 148/56. SKIN: Without rash or lesion. HEENT: Again, oral mucosa erythematous. There is no evidence of thrush. Tongue is coated. NECK: Supple. HEART: Regular rate and rhythm. LUNGS: Scattered rhonchi in all zuñiga. ABDOMEN: Soft, nontender, and nondistended. EXTREMITIES: No calf tenderness or swelling. NEUROLOGIC: Nonfocal. LABORATORY DATA: Sodium 136, potassium 3.5, chloride 105, carbon dioxide 22, BUN 15, and creatinine 1.1. WBC count 7590, hemoglobin 8.6, platelet count 217,000, and absolute neutrophil count 5570. IMPRESSION: 1. Neutropenic fever. 2. Right lower lobe pneumonia. 3. Altered mental status. 4. Oral mucositis. PLAN: Mr. De Leon was seen and examined this morning. His mentation is still suboptimal and I suspect may be drug related. I would like to hold off on further cough syrup administration at night. Ideally, physical and occupational therapy should get involved to increase his activity level. Oral mucositis is prohibited Mr. De Leon increasing his diet and we will continue local therapy in this regard. He no longer needs to be under neutropenic precautions. Would also incorporate lactulose p.r.n. for constipation. Blood and urine cultures are negative. As long as he remains afebrile, consider converting his IV therapy to oral. Thank you very much for assisting us in the care of this very pleasant gentleman. If you have any questions or concerns, feel free to contact me.
[2017-01-01] MEDS: CLOPIDOGREL BISULFATE 75 MG TAB PO SCH (09:37)
[2017-01-01] MEDS: LIDOCAINE HCL 2% VISCOUS SOLN 60 ML, DiphenhydrAMINE HCL SYRUP 150 MG, ALUMINUM/MAGNESI... MT PRN ×12 (10:44→21:18)
[2017-01-01] MEDS ORDERED: POTASSIUM CHLORIDE 10 MEQ TABCR PO STA (10:53)
[2017-01-01] MEDS ORDERED: BISACODYL 10 MG SUPP PR STA (10:55)
[2017-01-01] MEDS: METHYLPREDNISOLONE IV 40 MG in SYRINGE 0 ML IV SCH ×2 (11:07→18:51)
[2017-01-01] MEDS ORDERED: MAGNESIUM OXIDE 400 MG TAB PO ONE (11:15)
[2017-01-01] MEDS: INSULIN GLARGINE SOLOSTAR 100 UNITS/ML 3 ML PEN SC SCH ×2 (11:17→21:28)
--- NOTE | 2017-01-01 15:39 | DIAGNOSTIC IMAGING REPORT ---
CHEST ONE VIEW PORTABLE CLINICAL HISTORY: Abn facultative exam ?? CHF dyspnea COMPARISON STUDY: 12/31/2016 FINDINGS: Moderate cardiomegaly unchanged in the prior exam. Prior median sternotomy. Moderate prominence of pulmonary vasculature. Mild congestive failure similar to slightly improved radiographically from the prior exam. IMPRESSION: Mild congestive failure slightly improved radiographically from the prior exam. Possible superimposed right basilar infiltrate Electronically signed by: Jairo Lucas M.D. 01/01/2017 3:38 PM Dictated Date/Time: 01/01/2017 3:37 PM
[2017-01-01] MEDS: QUETIAPINE FUMARATE 25 MG TAB PO SCH (21:00)
[2017-01-01] MEDS: ATORVASTATIN 40 MG TAB PO SCH (21:17)
[2017-01-01] MEDS: MAGNESIUM OXIDE 400 MG TAB PO SCH (21:17)
[2017-01-01] MEDS: TIOTROPIUM BROMIDE 5 PUFF/90 MCG INH INH SCH (21:19)
[2017-01-01] MEDS: AZITHROMYCIN IV 250 MG in DEXTROSE 5% 250ML 250 ML IV SCH (21:24)
[2017-01-01] MEDS: CHLORPH/HYDROCOD EXT REL LIQ 5ML UDP PO SCH (21:46)
[2017-01-02] VITALS (14 sets, daily range): BP systolic 126–156; BP diastolic 53–69; PULSE 76–110; TEMP 36.4–37.1; O2SAT 90–97
[2017-01-02] MEDS: DEXAMETHASONE CONC SOLN 3.75 MG, NYSTATIN SUSP 30 ML, DiphenhydrAMINE HCL SYRUP 300 MG,... PO SCH ×20 (00:02→19:06)
[2017-01-02] MEDS: PIPERACILL/TAZOBAC IV 3.375 GM in DEXTROSE 5% 100ML 100 ML IV SCH ×4 (00:02→22:00)
[2017-01-02] MEDS: ALBUT/IPRATROP 3MG/0.5MG NEB 3 ML VIAL INH SCH ×4 (02:06→19:15)
[2017-01-02] MEDS: METHYLPREDNISOLONE IV 40 MG in SYRINGE 0 ML IV SCH ×3 (03:44→15:57)
--- NOTE | 2017-01-02 05:30 | Progress Note ---
Subjective Date of Service: late entry for visit January 01, 2017. Subjective Pt evaluation today including: conversation w/ patient, conversation w/ family (, daughter = bedside), physical exam, chart review, lab review, review of studies (cxr), review of inpatient medication list Pain: none PO Intake: fair Voiding: meadows catheter in place overnight - episodes of confusion, pulling/attempting to manipulate catheter didn't sleep well still with cough very weak no bowel movement yet Problem List Medical Problems: (1) Fever Status: Acute (2) Neutropenic fever Status: Acute (3) PNA (pneumonia) Status: Acute (4) Severe sepsis Status: Acute Review of Systems Constitutional: No chills, No fever Respiratory: + cough, + dyspnea on exertion, + wheezing Cardiac: No chest pain, No orthopnea Abdomen: No pain Objective Vital Signs Date Time Temp Pulse Resp B/P Pulse Ox O2 Delivery O2 Flow Rate FiO2 01/02/17 05:04 37.1 95 20 156/62 90 Room Air 01/02/17 02:07 95 16 93 Room Air 01/02/17 00:00 93 Room Air 01/01/17 20:00 92 Room Air 01/01/17 20:00 92 Room Air 2.0 01/01/17 19:46 93 18 93 Room Air 01/01/17 19:29 37.2 95 18 151/68 93 Room Air 01/01/17 16:00 92 Room Air 01/01/17 14:58 36.8 101 16 149/56 92 Room Air 01/01/17 14:19 95 20 96 Room Air 01/01/17 12:00 94 Room Air 01/01/17 11:22 37.6 107 16 150/61 94 Room Air 01/01/17 08:13 36.5 96 16 148/56 92 Room Air 01/01/17 08:00 94 Room Air 01/01/17 07:10 95 20 94 Room Air Physical Exam General Appearance: no apparent distress ENT: + pertinent finding (severe mucositis; thrush plaques improved; MM mildly dry) Neck: + JVD Respiratory/Chest: no respiratory distress, no accessory muscle use, + rales ( right lower lobe), + wheezing (diffuse) Cardiovascular: no gallop, no murmur, + irregularly irregular Abdomen: normal bowel sounds, non tender, soft, no organomegaly, + distended Extremities: no pedal edema Neurologic/Psychiatric: alert, + disoriented (mild) Laboratory Results Last 24 Hours Test 01/01/17 06:11 01/01/17 07:57 01/01/17 11:37 01/01/17 16:31 White Blood Count 7.59 K/uL Red Blood Count 2.73 M/uL Hemoglobin 8.6 g/dL Hematocrit 24.3 % Mean Corpuscular Volume 89.0 fL Mean Corpuscular Hemoglobin 31.5 pg Mean Corpuscular Hemoglobin Concent 35.4 g/dl Platelet Count 217 K/uL Mean Platelet Volume 11.1 fL Neutrophils (%) (Auto) 73.4 % Lymphocytes (%) (Auto) 11.3 % Monocytes (%) (Auto) 13.7 % Eosinophils (%) (Auto) 0.4 % Basophils (%) (Auto) 0.1 % Neutrophils # (Auto) 5.57 K/uL Lymphocytes # (Auto) 0.86 K/uL Monocytes # (Auto) 1.04 K/uL Eosinophils # (Auto) 0.03 K/uL Basophils # (Auto) 0.01 K/uL RDW Standard Deviation 42.9 fL RDW Coefficient of Variation 13.3 % Immature Granulocyte % (Auto) 1.1 % Immature Granulocyte # (Auto) 0.08 K/uL Toxic Granulation 2+ Dohle Bodies 3+ Large Platelets 1+ Sodium Level 136 mmol/L Potassium Level 3.5 mmol/L Chloride Level 105 mmol/L Carbon Dioxide Level 22 mmol/L Anion Gap 9.0 mmol/L Blood Urea Nitrogen 18 mg/dl Creatinine 1.10 mg/dl Est Creatinine Clear Calc Drug Dose 63.3 ml/min Estimated GFR () 72.6 Estimated GFR (Non- 62.6 BUN/Creatinine Ratio 16.0 Random Glucose 211 mg/dl Calcium Level 7.7 mg/dl Bedside Glucose 235 mg/dl 192 mg/dl 225 mg/dl Test 01/01/17 20:25 Bedside Glucose 272 mg/dl Assessment and Plan 81yo male with: 1. severe neutropenia 2nd to recent chemo s/p neupogen - resolved. 2. neutropenic fever and severe sepsis 2nd to RLL pneumonia - improving slowly. Cont broad-spectrum antibiotics but reasonable to stop the vancomycin as MRSA [employer] swab was negative. 3. RLL pneumonia - at risk for gram negatives, atypicals. MRSA [employer] swab neg. Just completed 10 days of levaquin recently. cont zosyn and zithromax. day #4 of abx. plan 7 days, possibly longer. 4. acute hypoxic resp failure 2nd to #3 and acute/chronic diastolic CHF - ongoing but improved. 5. COPD - scheduled duonebs + steroids IV -- change hydrocortisone to solumedrol. 6. thrush - diflucan, day #3 - improved. 7. mucositis - scheduled q6h magic mouthwash - improved. 8. insomnia - seroquel 25mg HS especially in light of trying to manipulate IV catheter, confusion, etc. 9. acute/chronic diastolic CHF - give another dose of IV lasix today. Follow UOP, BMP, clinical response. 10. hypothyroidism - cont synthroid. TSH shows compensation. 11. DVT proph - heparin SC. 12. PT, OT consults - most likely will need rehab. 13. metabolic encephalopathy - ongoing. Supportive care. Ammonia was normal. Seroquel HS. If sx's persist then will need imaging of brain. 14. ANA - CPAP HS. 15. acute kidney injury - resolved. 2nd to sepsis. 16. T2DM - control reasonable in light of illness. Increasing lantus due to steroids. and daughter extensively updated at bedside slow progress time 40 min Continued [facility] stay due to: abnormal vital signs, inadequate po fluid intake, voiding difficulties, ambulation difficulties, multiple IV medications needed Discharge planning: uncertain
[2017-01-02] MEDS: LEVOTHYROXINE 125 MCG TAB PO SCH (06:15)
[2017-01-02] MEDS: ACETAMINOPHEN 325 MG TAB PO PRN (06:28)
[2017-01-02 07:36] LABS: BUN/CREATININE RATIO 14.5 (10-20); CALCIUM 7.8 mg/dl (8.5-10.1); CREATININE 1.2 mg/dl (0.60-1.40); POTASSIUM 3.9 mmol/L (3.5-5.1)
[2017-01-02 07:54] LABS: HEMATOCRIT 25.6 % (42-52); MEAN CELL VOLUME 89.2 fL (80-100); MEAN CORPUSCULAR HEMOGLOBIN 32.1 pg (25-34); MEAN CORPUSCULAR HGB CONC 35.9 g/dl (32-36); MEAN PLATELET VOLUME 10.8 fL (7.4-10.4); PLATELET COUNT 278 K/uL (130-400); RED BLOOD COUNT 2.87 M/uL (4.7-6.1); WHITE BLOOD COUNT 26.04 K/uL (4.8-10.8)
[2017-01-02 07:55] LABS: BASO % 0.1 %; BASO ABS # 0.03 K/uL (0-0.2); COMPLETE YES; ECHINOCYTES 2+; IG% 4.4 %; LYMPH % 4.3 %; LYMPH ABS # 1.13 K/uL (1.2-3.4); MONO % 1.8 %; NEUT % 89.4 %; TOXIC GRANULATION 2+
[2017-01-02] MEDS: MAGNESIUM OXIDE 400 MG TAB PO SCH ×2 (09:00→21:02)
[2017-01-02] MEDS: FLUCONAZOLE 100 MG TAB PO SCH (09:00)
[2017-01-02] MEDS: DILTIAZEM HCL 240 MG CAPCR PO SCH (09:00)
[2017-01-02] MEDS: ASPIRIN 81 MG ECTAB PO SCH (09:00)
[2017-01-02] MEDS ORDERED: INSULIN GLARGINE SOLOSTAR 100 UNITS/ML 3 ML PEN SC SCH (10:15)
[2017-01-02] MEDS: HEPARIN SOD 5000 UNIT/0.5 ML CARP SQ SCH ×2 (10:30→21:15)
[2017-01-02] MEDS: INSULIN ASPART 100 UNITS/ML 3 ML PEN SC SCH ×4 (10:30→21:14)
[2017-01-02] MEDS: GUAIFENESIN 600 MG TABCR PO SCH ×2 (10:34→21:01)
[2017-01-02] MEDS: CLOPIDOGREL BISULFATE 75 MG TAB PO SCH (10:35)
[2017-01-02] MEDS: METOPROLOL SUCC 50MG EXT REL TAB PO SCH (10:35)
[2017-01-02] MEDS: PANTOprazole SOD 40 MG TAB PO SCH ×2 (10:35→21:01)
[2017-01-02] MEDS: LANSOPRAZOLE SOLUTAB 30 MG PO SCH ×2 (10:36→21:02)
[2017-01-02] MEDS ORDERED: FUROSEMIDE 40 MG TAB PO ONE (12:00)
[2017-01-02] MEDS: AZITHROMYCIN 250 MG TAB PO SCH (13:33)
[2017-01-02] MEDS ORDERED: VANCOMYCIN TROUGH ONE (15:30)
[2017-01-02] MEDS ORDERED: VANCOMYCIN TROUGH SCH (15:30)
--- NOTE | 2017-01-02 20:47 | HEME/ONC PROGRESS NOTE ---
DATE: 01/02/2017 DIAGNOSES: 1. Neutropenic fever. 2. Oral mucositis. 3. Right lower lobe pneumonia. 4. Nonsmall cell lung cancer. HOSPITAL COURSE: Mr. De Leon is a very pleasant 81-year-old gentleman well known to [facility], currently under Dr. Cedeño's care for recurrent nonsmall cell lung cancer. Much better clinically today, his mental status is markedly improved. He was sitting up in chair, awake, alert and conversant. Michael did have a bit of confusion towards the end of our encounter, but otherwise doing much much better. 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 His neutrophil count has fully recovered. He continues broad-spectrum antimicrobials for pneumonia. PHYSICAL EXAMINATION: GENERAL: Michael is in no acute distress. VITAL SIGNS: Temperature 36.9, pulse 95, respirations 18, blood pressure 143/62. SKIN: Warm, dry, noncyanotic. HEENT: Oral mucosa is less erythematous. There is no evidence of thrush. NECK: Supple. HEART: Regular rate and rhythm. LUNGS: Auscultated exam actually improved, some fine crackles are still heard in the bases, however. ABDOMEN: Soft, nontender, nondistended. EXTREMITIES: No calf tenderness or swelling. No pretibial edema. NEUROLOGIC: Grossly intact. LABORATORY DATA: WBC count 26,000, hemoglobin 9.2, platelet count 278,000. Sodium 134, potassium 3.9, chloride 103, carbon dioxide 20, creatinine 1.2, BUN 17. IMPRESSION: 1. Neutropenic fever. 2. Right lower lobe pneumonia. 3. Altered mental status. 4. Oral mucositis. PLAN: Mr. De Leon was again seen and examined at bedside. He was sitting up in chair and his mentation is vastly improved. He did not receive hydrocodone cough syrup or Seroquel prior to bedtime. He continues to lack nutritionally, however oral mucositis is improving with local care. Consider appetite stimulation I would suggest physical and occupational therapy to increase his activity level. Blood and urine cultures are negative at this point, and antibiotics could possibly be adjusted to oral preparations as appropriate. We will continue to follow with Mr. De Leon periodically during his stay. Thank you very much for assisting us in the care of this very pleasant gentleman. MIGUEL
[2017-01-02] MEDS: TIOTROPIUM BROMIDE 5 PUFF/90 MCG INH INH SCH (20:59)
[2017-01-02] MEDS: ATORVASTATIN 40 MG TAB PO SCH (21:00)
[2017-01-02] MEDS: QUETIAPINE FUMARATE 25 MG TAB PO SCH (21:01)
[2017-01-02] MEDS: INSULIN GLARGINE SOLOSTAR 100 UNITS/ML 3 ML PEN SC SCH (21:14)
[2017-01-02] MEDS: CHLORPH/HYDROCOD EXT REL LIQ 5ML UDP PO SCH (21:15)
--- NOTE | 2017-01-02 21:42 | Progress Note ---
Subjective Date of Service: Jan 02, 2017. Subjective Pt evaluation today including: conversation w/ patient, conversation w/ family (, daughter at bedside), physical exam, chart review, lab review, review of inpatient medication list Pain: none voiced PO Intake: scantly improved; blames appetite on mouth sores Voiding: meadows catheter in place tele stable overnight he slept poorly still w/ mild confusion per he has more energy and he has had no fever still with cough and congestion he did NOT take the seroquel last pm had very large BM last pm Problem List Medical Problems: (1) Fever Status: Acute (2) Neutropenic fever Status: Acute (3) PNA (pneumonia) Status: Acute (4) Severe sepsis Status: Acute Review of Systems Constitutional: No chills, No fever ENT: + dental problems (see HPI) Respiratory: + cough, + wheezing, No sputum Cardiac: No chest pain, No orthopnea Abdomen: No pain Objective Vital Signs Date Time Temp Pulse Resp B/P Pulse Ox O2 Delivery O2 Flow Rate FiO2 01/02/17 20:18 36.7 110 20 126/69 91 Room Air 01/02/17 20:00 Room Air 01/02/17 19:19 76 18 97 Room Air 01/02/17 16:00 Room Air 01/02/17 15:19 36.4 105 18 137/53 92 Room Air 01/02/17 14:15 92 16 93 Room Air 01/02/17 12:00 94 Room Air 2.0 01/02/17 11:45 36.9 95 18 143/62 94 Room Air 01/02/17 08:00 93 Room Air 01/02/17 07:32 36.4 94 20 151/61 92 Room Air 01/02/17 07:25 92 16 92 Room Air 01/02/17 05:04 37.1 95 20 156/62 90 Room Air 01/02/17 04:00 93 Room Air 01/02/17 02:07 95 16 93 Room Air 01/02/17 00:00 93 Room Air Physical Exam General Appearance: no apparent distress, + pertinent finding (looks better) ENT: + pertinent finding (mucositis improving; thrush resolved) Neck: + JVD Respiratory/Chest: no respiratory distress, no accessory muscle use, + rales ( both bases, worse on right), + wheezing, + pertinent finding (airation better today) Cardiovascular: no gallop, + tachycardia Abdomen: normal bowel sounds, non tender, soft, no organomegaly, + distended ( mild) Extremities: no pedal edema Neurologic/Psychiatric: alert, oriented x 3, + pertinent finding (but cannot tell me the months of the year backwards) Skin: no rash Laboratory Results Last 24 Hours Test 01/02/17 06:45 01/02/17 07:44 01/02/17 11:59 01/02/17 16:30 White Blood Count 26.04 K/uL Red Blood Count 2.87 M/uL Hemoglobin 9.2 g/dL Hematocrit 25.6 % Mean Corpuscular Volume 89.2 fL Mean Corpuscular Hemoglobin 32.1 pg Mean Corpuscular Hemoglobin Concent 35.9 g/dl Platelet Count 278 K/uL Mean Platelet Volume 10.8 fL Neutrophils (%) (Auto) 89.4 % Lymphocytes (%) (Auto) 4.3 % Monocytes (%) (Auto) 1.8 % Eosinophils (%) (Auto) 0.0 % Basophils (%) (Auto) 0.1 % Neutrophils # (Auto) 23.27 K/uL Lymphocytes # (Auto) 1.13 K/uL Monocytes # (Auto) 0.46 K/uL Eosinophils # (Auto) 0.01 K/uL Basophils # (Auto) 0.03 K/uL RDW Standard Deviation 44.6 fL RDW Coefficient of Variation 13.6 % Immature Granulocyte % (Auto) 4.4 % Immature Granulocyte # (Auto) 1.14 K/uL Toxic Granulation 2+ Echinocytes 2+ Sodium Level 134 mmol/L Potassium Level 3.9 mmol/L Chloride Level 103 mmol/L Carbon Dioxide Level 20 mmol/L Anion Gap 11.0 mmol/L Blood Urea Nitrogen 17 mg/dl Creatinine 1.20 mg/dl Est Creatinine Clear Calc Drug Dose 58.1 ml/min Estimated GFR () 65.3 Estimated GFR (Non- 56.4 BUN/Creatinine Ratio 14.5 Random Glucose 275 mg/dl Calcium Level 7.8 mg/dl Magnesium Level 2.0 mg/dl Bedside Glucose 302 mg/dl 331 mg/dl 284 mg/dl Test 01/02/17 20:40 Bedside Glucose 318 mg/dl Assessment and Plan 81yo male with: 1. severe neutropenia 2nd to recent chemo s/p neupogen - resolved. 2. neutropenic fever and severe sepsis 2nd to RLL pneumonia - resolved. Cont broad-spectrum antibiotics but reasonable to stop the vancomycin as MRSA NECK B[employer]TER swab was negative. 3. RLL pneumonia - at risk for gram negatives, atypicals. MRSA NECK B[employer]TER swab neg. Just completed 10 days of levaquin recently. cont zosyn and zithromax. day #5 of abx. plan 7 days, possibly longer. convert zithromax to PO. 4. acute hypoxic resp failure 2nd to #3 and acute/chronic diastolic CHF - improving; he is now off O2. 5. COPD - improved. Cont scheduled duonebs + steroids IV -- wean steroids to q12h. 6. thrush - diflucan, day #4 - improved. 7. mucositis - scheduled q6h magic mouthwash - improved. 8. insomnia - seroquel 25mg HS; encouraged him to be active during the day so he will be tired at HS. 9. acute/chronic diastolic CHF - 1 more dose of IV lasix today, then suspect we are approaching euvolemia. 10. hypothyroidism - cont synthroid. TSH shows compensation. 11. DVT proph - heparin SC. 12. PT, OT consults - most likely will need rehab. 13. metabolic encephalopathy - ongoing. Supportive care. Ammonia was normal. Seroquel HS. If sx's persist then will need imaging of brain. 14. ANA - CPAP HS. 15. acute kidney injury - resolved. 2nd to sepsis. 16. T2DM - uncontrolled. Increase lantus; adjust novolog correction factor and carb ratio. and daughter updated cont PT, OT will need rehab Continued [facility] stay due to: inadequate po fluid intake, voiding difficulties, ambulation difficulties, multiple IV medications needed Discharge planning: rehab hospital
[2017-01-03] VITALS (11 sets, daily range): BP systolic 118–150; BP diastolic 54–64; PULSE 87–109; TEMP 35.8–36.9; O2SAT 90–96
[2017-01-03] MEDS: ALBUT/IPRATROP 3MG/0.5MG NEB 3 ML VIAL INH SCH ×3 (01:58→14:17)
[2017-01-03] MEDS: METHYLPREDNISOLONE IV 40 MG in SYRINGE 0 ML IV SCH (03:00)
[2017-01-03] MEDS: LEVOTHYROXINE 125 MCG TAB PO SCH (05:52)
[2017-01-03] MEDS: DEXAMETHASONE CONC SOLN 3.75 MG, NYSTATIN SUSP 30 ML, DiphenhydrAMINE HCL SYRUP 300 MG,... PO SCH ×20 (05:53→18:00)
[2017-01-03] MEDS: PIPERACILL/TAZOBAC IV 3.375 GM in DEXTROSE 5% 100ML 100 ML IV SCH ×3 (05:53→21:17)
[2017-01-03 06:55] LABS: HEMATOCRIT 26.1 % (42-52); MEAN CELL VOLUME 90.3 fL (80-100); MEAN CORPUSCULAR HEMOGLOBIN 31.5 pg (25-34); MEAN CORPUSCULAR HGB CONC 34.9 g/dl (32-36); MEAN PLATELET VOLUME 10.9 fL (7.4-10.4); PLATELET COUNT 291 K/uL (130-400); RED BLOOD COUNT 2.89 M/uL (4.7-6.1); WHITE BLOOD COUNT 25.83 K/uL (4.8-10.8)
[2017-01-03 07:28] LABS: BUN/CREATININE RATIO 17.9 (10-20); CREATININE 1.2 mg/dl (0.60-1.40); POTASSIUM 3.5 mmol/L (3.5-5.1)
[2017-01-03] MEDS: HEPARIN SOD 5000 UNIT/0.5 ML CARP SQ SCH ×2 (08:47→21:17)
[2017-01-03] MEDS: INSULIN GLARGINE SOLOSTAR 100 UNITS/ML 3 ML PEN SC SCH ×3 (08:47→21:16)
[2017-01-03] MEDS: LANSOPRAZOLE SOLUTAB 30 MG PO SCH ×2 (08:57→21:22)
[2017-01-03] MEDS: ASPIRIN 81 MG ECTAB PO SCH (08:57)
[2017-01-03] MEDS: CLOPIDOGREL BISULFATE 75 MG TAB PO SCH (08:58)
[2017-01-03] MEDS: GUAIFENESIN 600 MG TABCR PO SCH ×2 (08:58→21:23)
[2017-01-03] MEDS: PANTOprazole SOD 40 MG TAB PO SCH ×2 (08:59→21:22)
[2017-01-03] MEDS: DILTIAZEM HCL 240 MG CAPCR PO SCH (08:59)
[2017-01-03] MEDS: FLUCONAZOLE 100 MG TAB PO SCH (08:59)
[2017-01-03] MEDS: METOPROLOL SUCC 50MG EXT REL TAB PO SCH (09:00)
[2017-01-03] MEDS: MAGNESIUM OXIDE 400 MG TAB PO SCH ×2 (09:00→21:19)
[2017-01-03] MEDS: AZITHROMYCIN 250 MG TAB PO SCH (09:01)
[2017-01-03] MEDS: INSULIN ASPART 100 UNITS/ML 3 ML PEN SC SCH ×4 (09:12→21:14)
--- NOTE | 2017-01-03 09:41 | DIAGNOSTIC IMAGING REPORT ---
CT HEAD WITHOUT CONTRAST (CT) CLINICAL HISTORY: Lung carcinoma, confusion, possible metastatic disease. COMPARISON STUDY: 04/05/2015, MRI the brain dated 04/30/2016. TECHNIQUE: Axial CT of the brain is performed from the vertex to the skull base. IV contrast was not administered for this examination. CT DOSE: 988.97 mGy.cm FINDINGS: No intra or extra-axial mass lesions are visualized. There is no CT evidence of acute cortical infarction. There is no evidence of midline shift. There is no acute hemorrhage. No calvarial fractures are visualized. There are minor white matter hypodensities likely on a small vessel basis. There is no evidence of pathologic ventricular dilatation. There is no evidence of acute sinusitis IMPRESSION: No acute intracranial findings. No evidence of intracranial metastasis on this noncontrast study Electronically signed by: Thor Alexis M.D. 01/03/2017 9:39 AM Dictated Date/Time: 01/03/2017 9:38 AM
--- NOTE | 2017-01-03 14:19 | HEME/ONC PROGRESS NOTE ---
DATE: 01/03/2017 DIAGNOSES: 1. Altered mental status. 2. Neutropenic fever. 3. Oral mucositis. 4. Right lower lobe pneumonia. 5. Nonsmall cell lung cancer. HOSPITAL COURSE: Mr. De Leon is a pleasant 81-year-old gentleman, currently under Dr. Cedeño's care with recurrent nonsmall cell lung cancer, was admitted 5 days ago with neutropenic fever. He was diagnosed subsequently with right lower lobe pneumonia and continues antimicrobials. blood cultures have been negative. His mental status is still tenuous. His and son present at bedside, both point out that he is intermittently confused. He has been a bit more awake, he is sitting up in chair, but again very little in regards to ambulation. His p.o. intake has improved just slightly but otherwise nursing reports no overnight issues. PHYSICAL EXAMINATION: GENERAL: Sonu is in no acute distress. VITAL SIGNS: Temperature 35.8, pulse 104, respirations 20, blood pressure 150/55. SKIN: Without rash or lesion. HEENT: Oral mucosa looks a little bit better. He has got a few small ulcerations in the buccal mucosa, one up in the soft palate. NECK: Supple. HEART: Regular rate and rhythm. LUNGS: Again, are definitely more clear today bilaterally. I cannot appreciate any coarse rales or rhonchi. ABDOMEN: Soft, nontender, nondistended. EXTREMITIES: No clubbing, cyanosis or edema. NEUROLOGIC: For the most part grossly intact, but again I also witnessed a short episode of confusion, at bedside. LABORATORY DATA: WBC count 25,830, hemoglobin 9.1, platelet count 291,000. Sodium 136, potassium 3.5, chloride 104, carbon dioxide 25, BUN 21, and creatinine 1.2. RADIOGRAPHIC DATA: CT scan of the head noncontrast, no acute intracranial findings. IMPRESSION: 1. Altered mental status. 2. Neutropenic fever. 3. Right lower lobe pneumonia. 4. Oral mucositis. PLAN: I had the pleasure of visiting with Michael at bedside today. His son, [id number] and were present during my examination. They continue to point out his intermittent confusional state. I had mentioned in my prior progress notes to avoid hydrocodone syrup and possibly to hold Seroquel for 24 hours. Both were given last night. Therefore, I have asked the nurse to discontinue both those agents for the next 24 hours. I would also encourage the hospitalist to order PT and OT to get Mr. De Leon up and about. Continue to work on appetite stimulation and perhaps start Megace b.i.d. for stimulation. I will advise Dr. Cedeño of his clinical status. Thank you again for assisting us in the care of this very pleasant gentleman. MIGUEL
[2017-01-03] MEDS ORDERED: LEVALBUTEROL/IPRATROPIUM NEB INH SCH (14:45)
[2017-01-03] MEDS ORDERED: QUETIAPINE FUMARATE 25 MG TAB PO PRN (14:45)
[2017-01-03 15:26] LABS: VEN BLD GAS O2 SATURATION 76.4 %; VEN BLOOD GAS BASE EXCESS -1.4 mmol/L
[2017-01-03] MEDS: LIDOCAINE HCL 2% VISCOUS SOLN 60 ML, DiphenhydrAMINE HCL SYRUP 150 MG, ALUMINUM/MAGNESI... MT PRN ×4 (17:38)
[2017-01-03] MEDS: LEVALBUTEROL 1.25MG/0.5ML NEB INH SCH (21:11)
[2017-01-03] MEDS: IPRATROPIUM BROMIDE NEB SOLN 0.02% 2.5 ML VIAL INH SCH (21:11)
[2017-01-03] MEDS: TIOTROPIUM BROMIDE 5 PUFF/90 MCG INH INH SCH (21:20)
[2017-01-03] MEDS: ATORVASTATIN 40 MG TAB PO SCH (21:23)
[2017-01-04] VITALS (8 sets, daily range): BP systolic 118–131; BP diastolic 56–58; PULSE 76–118; TEMP 36.4–36.7; O2SAT 90–97
--- NOTE | 2017-01-04 | Progress Note ---
Subjective Date of Service: Jan 03, 2017. Subjective Pt evaluation today including: conversation w/ patient, conversation w/ family (son, daughter in law, ), physical exam, chart review, lab review, review of inpatient medication list Pain: none PO Intake: fair, poor at times Voiding: meadows catheter in place overnight he took the seroquel apparently was in fairly good, deep sleep then was awakened for a neb or vitals he got irritated at that time and then didn't sleep as well for the remainder of the night throughout the day today he has continued to be intermittently sleepy he has been napping in the wheelchair appetite has been fair at best family states he normally sleeps 12 hours at night and takes a nap during the day when he awakens to talk with me he is confused about where he is, why he is here , etc family reports he seems to get tremulousness with taking the nebs Problem List Medical Problems: (1) Fever Status: Acute (2) Neutropenic fever Status: Acute (3) PNA (pneumonia) Status: Acute (4) Severe sepsis Status: Acute Review of Systems Constitutional: No chills, No fever Respiratory: + cough, + dyspnea on exertion Cardiac: No chest pain Abdomen: No pain Objective Vital Signs Date Time Temp Pulse Resp B/P Pulse Ox O2 Delivery O2 Flow Rate FiO2 01/03/17 23:06 36.7 109 18 118/54 94 CPAP 01/03/17 21:11 94 18 93 Room Air 01/03/17 16:09 36.9 99 24 120/64 92 Room Air 01/03/17 15:22 35.8 104 20 90 01/03/17 12:00 90 Room Air 01/03/17 08:00 90 Room Air 01/03/17 07:19 35.8 104 20 150/55 90 Room Air 01/03/17 06:15 94 18 96 Room Air 01/03/17 04:00 93 Room Air 01/03/17 03:42 36.7 87 20 150/62 93 Room Air 01/03/17 00:00 93 Room Air Physical Exam General Appearance: no apparent distress, + pertinent finding (confused ) ENT: + pertinent finding (thrush resolved; mucositis resolving) Neck: no JVD Respiratory/Chest: + crackles (dense, RLL), + wheezing (mild, end-exp) Cardiovascular: no gallop, + tachycardia, + extra beats Abdomen: normal bowel sounds, non tender, soft, no organomegaly, + distended ( mild) Extremities: no pedal edema Neurologic/Psychiatric: + disoriented, + pertinent finding (sleep, confused) Laboratory Results Last 24 Hours Test 01/03/17 06:11 01/03/17 06:19 01/03/17 07:26 01/03/17 11:28 Sodium Level 136 mmol/L Potassium Level 3.5 mmol/L Chloride Level 104 mmol/L Carbon Dioxide Level 25 mmol/L Anion Gap 7.0 mmol/L Blood Urea Nitrogen 21 mg/dl Creatinine 1.20 mg/dl Est Creatinine Clear Calc Drug Dose 58.2 ml/min Estimated GFR () 65.3 Estimated GFR (Non- 56.4 BUN/Creatinine Ratio 17.9 Random Glucose 200 mg/dl Calcium Level 8.0 mg/dl White Blood Count 25.83 K/uL Red Blood Count 2.89 M/uL Hemoglobin 9.1 g/dL Hematocrit 26.1 % Mean Corpuscular Volume 90.3 fL Mean Corpuscular Hemoglobin 31.5 pg Mean Corpuscular Hemoglobin Concent 34.9 g/dl RDW Standard Deviation 46.9 fL RDW Coefficient of Variation 14.1 % Platelet Count 291 K/uL Mean Platelet Volume 10.9 fL Bedside Glucose 211 mg/dl 222 mg/dl Test 01/03/17 15:13 01/03/17 16:28 01/03/17 20:32 Venous Blood pH 7.45 Venous Blood Partial Pressure CO2 33 mmHg Venous Blood Partial Pressure O2 42 mmHg Venous Blood HCO3 22 mmol/L Venous Blood Oxygen Saturation 76.4 % Venous Blood Base Excess -1.4 mmol/L Vitamin B12 Level > 2000 pg/mL Bedside Glucose 299 mg/dl 300 mg/dl Assessment and Plan 81yo male with: 1. severe neutropenia 2nd to recent chemo s/p neupogen - resolved. 2. neutropenic fever and severe sepsis (2nd to RLL pneumonia) - resolved. 3. RLL pneumonia - at risk for gram negatives. 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 Just completed 10 days of levaquin recently. cont zosyn and zithromax. day #6 of zosyn. day #5 of zithromax - stop after today's dose. plan 7 days of zosyn, possibly longer. 4. acute hypoxic resp failure 2nd to #3 and acute/chronic diastolic CHF - improving; he is now off O2. 5. COPD - improved. Cont scheduled nebs but make them xopenex/atrovent (to help with tachycardia). Change steroids from IV steroids to po prednisone. Wean latter slowly over 1-2 weeks back down to his usual dose of 5mg daily. 6. thrush - diflucan, day #5 - improved. Plan 7-10 days of diflucan. 7. mucositis - scheduled q6h magic mouthwash - improved. Lesions are crusting over. 8. insomnia - ongoing issue. His sleep/wake cycle is reversed; sleeping all day and up at night. Family concerned about using the seroquel. Will drop dose to 12.5mg and make PRN. We discussed ways of helping with his insomnia and delirium. Discussed reorientation, allowing him to get adequate sunlight, etc. 9. acute/chronic diastolic CHF - compensated clinically. Resume PO lasix 40mg daily tomorrow. 10. hypothyroidism - cont synthroid. TSH shows compensation. 11. DVT proph - heparin SC. 12. PT, OT consults - most likely will need rehab. 13. metabolic encephalopathy - ongoing. Supportive care. Ammonia was normal. CT head ordered today and was NEGATIVE for mets. Seroquel HS prn. 14. ANA - CPAP HS. 15. acute kidney injury - resolved. 2nd to sepsis. 16. T2DM - uncontrolled. Increase lantus and adjust novolog. updated son/daughter updated cont PT, OT will need rehab ok to transfer from telemetry to med/surg Continued [facility] stay due to: inadequate po fluid intake, voiding difficulties, ambulation difficulties, multiple IV medications needed Discharge planning: rehab hospital (vs SNF)
[2017-01-04] MEDS: PIPERACILL/TAZOBAC IV 3.375 GM in DEXTROSE 5% 100ML 100 ML IV SCH ×3 (05:26→21:45)
[2017-01-04] MEDS: IPRATROPIUM BROMIDE NEB SOLN 0.02% 2.5 ML VIAL INH SCH ×3 (06:03→21:56)
[2017-01-04] MEDS: LEVALBUTEROL 1.25MG/0.5ML NEB INH SCH ×3 (06:03→21:56)
[2017-01-04] MEDS: LEVOTHYROXINE 125 MCG TAB PO SCH (06:14)
[2017-01-04] MEDS: DEXAMETHASONE CONC SOLN 3.75 MG, NYSTATIN SUSP 30 ML, DiphenhydrAMINE HCL SYRUP 300 MG,... PO SCH ×20 (06:15→16:51)
[2017-01-04] MEDS: HEPARIN SOD 5000 UNIT/0.5 ML CARP SQ SCH ×3 (06:21→21:50)
[2017-01-04 06:31] LABS: HEMATOCRIT 25.7 % (42-52); MEAN CELL VOLUME 90.8 fL (80-100); MEAN CORPUSCULAR HEMOGLOBIN 31.4 pg (25-34); MEAN CORPUSCULAR HGB CONC 34.6 g/dl (32-36); MEAN PLATELET VOLUME 10.6 fL (7.4-10.4); PLATELET COUNT 335 K/uL (130-400); RED BLOOD COUNT 2.83 M/uL (4.7-6.1); WHITE BLOOD COUNT 15.47 K/uL (4.8-10.8)
[2017-01-04 06:52] LABS: ACANTHOCYTES 1+; BASO % 0.1 %; BASO ABS # 0.01 K/uL (0-0.2); COMPLETE YES; IG% 0.9 %; LYMPH % 6.2 %; LYMPH ABS # 0.96 K/uL (1.2-3.4); MONO % 6.6 %; NEUT % 86.2 %; POLYCHROMASIA 1+
[2017-01-04 06:59] LABS: BUN/CREATININE RATIO 20.8 (10-20); CALCIUM 8.3 mg/dl (8.5-10.1); CREATININE 1.3 mg/dl (0.60-1.40); POTASSIUM 3.6 mmol/L (3.5-5.1)
[2017-01-04] MEDS ORDERED: BOOST GLUCOSE CONTROL PO SCH (08:00)
[2017-01-04] MEDS: LIDOCAINE HCL 2% VISCOUS SOLN 60 ML, DiphenhydrAMINE HCL SYRUP 150 MG, ALUMINUM/MAGNESI... MT PRN ×4 (08:36)
[2017-01-04] MEDS: GUAIFENESIN 600 MG TABCR PO SCH ×2 (08:36→20:06)
[2017-01-04] MEDS: DILTIAZEM HCL 240 MG CAPCR PO SCH (08:37)
[2017-01-04] MEDS: FLUCONAZOLE 100 MG TAB PO SCH (08:37)
[2017-01-04] MEDS: METOPROLOL SUCC 50MG EXT REL TAB PO SCH (08:37)
[2017-01-04] MEDS: PANTOprazole SOD 40 MG TAB PO SCH ×2 (08:38→20:06)
[2017-01-04] MEDS: LANSOPRAZOLE SOLUTAB 30 MG PO SCH ×2 (08:38→20:06)
[2017-01-04] MEDS: ASPIRIN 81 MG ECTAB PO SCH (08:38)
[2017-01-04] MEDS: CLOPIDOGREL BISULFATE 75 MG TAB PO SCH (08:39)
[2017-01-04] MEDS: MAGNESIUM OXIDE 400 MG TAB PO SCH ×2 (08:40→20:06)
[2017-01-04] MEDS: INSULIN GLARGINE SOLOSTAR 100 UNITS/ML 3 ML PEN SC SCH ×3 (09:18→21:50)
[2017-01-04] MEDS: INSULIN ASPART 100 UNITS/ML 3 ML PEN SC SCH ×4 (09:20→21:48)
--- NOTE | 2017-01-04 11:09 | Progress Note ---
Subjective Date of Service: Jan 04, 2017. Subjective Pt evaluation today including: conversation w/ patient, conversation w/ family , physical exam, chart review, lab review, review of studies, review of inpatient medication list Pt sitting up in chair Denies any worsening sob, cough, fevers or chills Questions addressed from son and daughter in law Problem List Medical Problems: (1) Fever Status: Acute (2) Neutropenic fever Status: Acute (3) PNA (pneumonia) Status: Acute (4) Severe sepsis Status: Acute Review of Systems Constitutional: No chills, No fever Eyes: No eye pain, No worsening of vision Respiratory: + cough, No dyspnea on exertion, No shortness of breath, No sputum , No wheezing Cardiac: No chest pain, No orthopnea Abdomen: No diarrhea, No nausea, No pain, No vomiting Musculoskeletal: No joint pain, No muscle pain Male : No dysuria, No urinary frequency Psychiatric: No anhedonism, No depression symptoms Objective Vital Signs Date Time Temp Pulse Resp B/P Pulse Ox O2 Delivery O2 Flow Rate FiO2 01/04/17 07:36 36.7 117 20 118/58 94 Room Air 01/04/17 06:03 107 16 95 Room Air 01/04/17 01:46 90 Room Air 01/03/17 23:06 36.7 109 18 118/54 94 CPAP 01/03/17 21:11 94 18 93 Room Air 01/03/17 16:09 36.9 99 24 120/64 92 Room Air 01/03/17 15:22 35.8 104 20 90 01/03/17 12:00 90 Room Air Physical Exam General Appearance: WD/WN, no apparent distress Neck: supple, no adenopathy Respiratory/Chest: lungs clear, normal breath sounds Cardiovascular: no edema, no gallop Abdomen: non tender, soft Neurologic/Psychiatric: alert, normal mood/affect Laboratory Results Last 24 Hours Test 01/03/17 11:28 01/03/17 15:13 01/03/17 16:28 01/03/17 20:32 Bedside Glucose 222 mg/dl 299 mg/dl 300 mg/dl Venous Blood pH 7.45 Venous Blood Partial Pressure CO2 33 mmHg Venous Blood Partial Pressure O2 42 mmHg Venous Blood HCO3 22 mmol/L Venous Blood Oxygen Saturation 76.4 % Venous Blood Base Excess -1.4 mmol/L Vitamin B12 Level > 2000 pg/mL Test 01/04/17 05:55 01/04/17 07:45 White Blood Count 15.47 K/uL Red Blood Count 2.83 M/uL Hemoglobin 8.9 g/dL Hematocrit 25.7 % Mean Corpuscular Volume 90.8 fL Mean Corpuscular Hemoglobin 31.4 pg Mean Corpuscular Hemoglobin Concent 34.6 g/dl Platelet Count 335 K/uL Mean Platelet Volume 10.6 fL Neutrophils (%) (Auto) 86.2 % Lymphocytes (%) (Auto) 6.2 % Monocytes (%) (Auto) 6.6 % Eosinophils (%) (Auto) 0.0 % Basophils (%) (Auto) 0.1 % Neutrophils # (Auto) 13.34 K/uL Lymphocytes # (Auto) 0.96 K/uL Monocytes # (Auto) 1.02 K/uL Eosinophils # (Auto) 0.00 K/uL Basophils # (Auto) 0.01 K/uL RDW Standard Deviation 47.6 fL RDW Coefficient of Variation 14.3 % Immature Granulocyte % (Auto) 0.9 % Immature Granulocyte # (Auto) 0.14 K/uL Nucleated RBC Absolute Count (auto) 0.04 K/uL Nucleated Red Blood Cells % 0.3 % Polychromasia 1+ Acanthocytes 1+ Sodium Level 137 mmol/L Potassium Level 3.6 mmol/L Chloride Level 104 mmol/L Carbon Dioxide Level 25 mmol/L Anion Gap 8.0 mmol/L Blood Urea Nitrogen 27 mg/dl Creatinine 1.30 mg/dl Est Creatinine Clear Calc Drug Dose 53.7 ml/min Estimated GFR () 59.3 Estimated GFR (Non- 51.2 BUN/Creatinine Ratio 20.8 Random Glucose 192 mg/dl Calcium Level 8.3 mg/dl Bedside Glucose 212 mg/dl Assessment and Plan 81yo male with: Severe neutropenia 2nd to recent chemo s/p neupogen - resolved. Neutropenic fever and severe sepsis (2nd to RLL pneumonia) - resolved. RLL pneumonia - at risk for gram negatives. 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 Just completed 10 days of levaquin recently. cont zosyn and zithromax. day # 7 of zosyn. finished 5 day course of zithromax plan 7 days of zosyn, possibly longer. Acute hypoxic resp failure 2nd to #3 and acute/chronic diastolic CHF - improving ; he is now off O2. COPD - improved. Cont scheduled nebs but make them xopenex/atrovent (to help with tachycardia). Change steroids from IV steroids to po prednisone. Wean latter slowly over 1-2 weeks back down to his usual dose of 5mg daily. Thrush - diflucan, day # 6 - improved. Plan 7-10 days of diflucan. Mucositis - scheduled q6h magic mouthwash - improved. Lesions are crusting over. Insomnia - ongoing issue. His sleep/wake cycle is reversed; sleeping all day and up at night. Family concerned about using the seroquel. Will drop dose to 12.5mg and make PRN. Acute/chronic diastolic CHF - compensated clinically. Resume PO lasix 40mg daily tomorrow. Hypothyroidism - cont synthroid. TSH shows compensation. DVT proph - heparin SC. 12. PT, OT consults - most likely will need rehab. 13. metabolic encephalopathy - ongoing. Supportive care. Ammonia was normal. CT head ordered today and was NEGATIVE for mets. Seroquel HS prn. 14. ANA - CPAP HS. 15. acute kidney injury - resolved. 2nd to sepsis. 16. T2DM - uncontrolled. Increase lantus and adjust novolog. updated son/daughter updated cont PT, OT Continued [facility] stay due to: inadequate po fluid intake, voiding difficulties, ambulation difficulties, multiple IV medications needed Discharge planning: rehab hospital (vs SNF)
[2017-01-04] MEDS: FUROSEMIDE 40 MG TAB PO SCH (12:55)
[2017-01-04] MEDS: BOOST GLUCOSE CONTROL PO SCH (20:00)
[2017-01-04] MEDS: TIOTROPIUM BROMIDE 5 PUFF/90 MCG INH INH SCH (20:05)
[2017-01-04] MEDS: ATORVASTATIN 40 MG TAB PO SCH (20:06)
[2017-01-05] VITALS (8 sets, daily range): BP systolic 110–141; BP diastolic 55–61; PULSE 76–118; TEMP 34.8–36.9; O2SAT 94–98
[2017-01-05] MEDS: DEXAMETHASONE CONC SOLN 3.75 MG, NYSTATIN SUSP 30 ML, DiphenhydrAMINE HCL SYRUP 300 MG,... PO SCH ×20 (00:01→18:23)
[2017-01-05] MEDS: PIPERACILL/TAZOBAC IV 3.375 GM in DEXTROSE 5% 100ML 100 ML IV SCH ×3 (05:32→16:55)
[2017-01-05] MEDS: LEVOTHYROXINE 125 MCG TAB PO SCH (05:34)
[2017-01-05] MEDS: HEPARIN SOD 5000 UNIT/0.5 ML CARP SQ SCH ×3 (05:43→20:53)
[2017-01-05] MEDS: IPRATROPIUM BROMIDE NEB SOLN 0.02% 2.5 ML VIAL INH SCH ×3 (06:07→22:17)
[2017-01-05] MEDS: LEVALBUTEROL 1.25MG/0.5ML NEB INH SCH ×3 (06:08→22:17)
[2017-01-05 07:14] LABS: CREATININE 1.2 mg/dl (0.60-1.40)
[2017-01-05] MEDS: CLOPIDOGREL BISULFATE 75 MG TAB PO SCH (08:28)
[2017-01-05] MEDS: FUROSEMIDE 40 MG TAB PO SCH (08:28)
[2017-01-05] MEDS: LANSOPRAZOLE SOLUTAB 30 MG PO SCH ×2 (08:28→19:35)
[2017-01-05] MEDS: BOOST GLUCOSE CONTROL PO SCH ×2 (08:29→19:35)
[2017-01-05] MEDS: DILTIAZEM HCL 240 MG CAPCR PO SCH (08:29)
[2017-01-05] MEDS: MAGNESIUM OXIDE 400 MG TAB PO SCH ×2 (08:30→19:35)
[2017-01-05] MEDS: PANTOprazole SOD 40 MG TAB PO SCH ×2 (08:30→19:35)
[2017-01-05] MEDS: ASPIRIN 81 MG ECTAB PO SCH (08:30)
[2017-01-05] MEDS: GUAIFENESIN 600 MG TABCR PO SCH ×2 (08:31→19:35)
[2017-01-05] MEDS: FLUCONAZOLE 100 MG TAB PO SCH (08:31)
[2017-01-05] MEDS: METOPROLOL SUCC 50MG EXT REL TAB PO SCH (08:32)
[2017-01-05 09:11] LABS: BASO % 0.1 %; BASO ABS # 0.02 K/uL (0-0.2); COMPLETE YES; HEMATOCRIT 26.7 % (42-52); IG% 1.4 %; LYMPH % 14.6 %; LYMPH ABS # 2.09 K/uL (1.2-3.4); MEAN CELL VOLUME 87.8 fL (80-100); MEAN CORPUSCULAR HEMOGLOBIN 30.9 pg (25-34); MEAN CORPUSCULAR HGB CONC 35.2 g/dl (32-36); MEAN PLATELET VOLUME 10.1 fL (7.4-10.4); MONO % 7.5 %; NEUT % 76.4 %; PLATELET COUNT 379 K/uL (130-400); RED BLOOD COUNT 3.04 M/uL (4.7-6.1)
[2017-01-05] MEDS: INSULIN ASPART 100 UNITS/ML 3 ML PEN SC SCH ×4 (09:14→20:52)
[2017-01-05] MEDS: INSULIN GLARGINE SOLOSTAR 100 UNITS/ML 3 ML PEN SC SCH ×2 (09:15→20:53)
[2017-01-05 09:35] LABS: BUN/CREATININE RATIO 20.7 (10-20); CALCIUM 8.4 mg/dl (8.5-10.1); CREATININE 1.2 mg/dl (0.60-1.40); POTASSIUM 3.1 mmol/L (3.5-5.1)
[2017-01-05] MEDS ORDERED: POTASSIUM CHLORIDE 10 MEQ TABCR PO STA (13:29)
--- NOTE | 2017-01-05 13:33 | Progress Note ---
Subjective Date of Service: Jan 05, 2017. Subjective Pt evaluation today including: conversation w/ patient, conversation w/ family , physical exam, chart review, lab review, review of studies, review of inpatient medication list Pt reports feeling weak States physical therapy not around to see him Family at bedside Loose bowel movement No fevers or chills Problem List Medical Problems: (1) Fever Status: Acute (2) Neutropenic fever Status: Acute (3) PNA (pneumonia) Status: Acute (4) Severe sepsis Status: Acute Review of Systems Constitutional: No chills, No fever Respiratory: No cough, No dyspnea on exertion, No shortness of breath, No sputum, No wheezing Cardiac: No chest pain, No orthopnea Abdomen: + diarrhea, No constipation, No nausea, No pain, No vomiting Musculoskeletal: No joint pain, No muscle pain Male : No dysuria, No urinary frequency Objective Vital Signs Date Time Temp Pulse Resp B/P Pulse Ox O2 Delivery O2 Flow Rate FiO2 01/05/17 08:05 34.8 116 24 125/57 97 Room Air 01/05/17 08:00 Room Air 01/05/17 07:58 36.9 118 20 138/60 95 Room Air 01/05/17 06:08 86 14 96 Room Air 01/05/17 00:04 36.3 108 18 110/57 96 Room Air 01/05/17 00:01 CPAP 01/04/17 21:56 76 16 96 Room Air 01/04/17 20:00 Room Air 01/04/17 15:12 94 Room Air 01/04/17 15:03 36.4 117 20 131/56 94 Room Air 01/04/17 14:15 118 16 97 Room Air Physical Exam General Appearance: WD/WN, no apparent distress Neck: supple, no adenopathy Cardiovascular: no edema, no gallop Abdomen: non tender, soft Neurologic/Psychiatric: alert, normal mood/affect Laboratory Results Last 24 Hours Test 01/04/17 16:51 01/04/17 20:28 01/05/17 06:25 01/05/17 07:44 Bedside Glucose 193 mg/dl 234 mg/dl 119 mg/dl Creatinine 1.20 mg/dl Est Creatinine Clear Calc Drug Dose 58.2 ml/min Estimated GFR () 65.3 Estimated GFR (Non- 56.4 Test 01/05/17 09:02 01/05/17 11:24 01/05/17 13:29 White Blood Count 14.30 K/uL Red Blood Count 3.04 M/uL Hemoglobin 9.4 g/dL Hematocrit 26.7 % Mean Corpuscular Volume 87.8 fL Mean Corpuscular Hemoglobin 30.9 pg Mean Corpuscular Hemoglobin Concent 35.2 g/dl Platelet Count 379 K/uL Mean Platelet Volume 10.1 fL Neutrophils (%) (Auto) 76.4 % Lymphocytes (%) (Auto) 14.6 % Monocytes (%) (Auto) 7.5 % Eosinophils (%) (Auto) 0.0 % Basophils (%) (Auto) 0.1 % Neutrophils # (Auto) 10.92 K/uL Lymphocytes # (Auto) 2.09 K/uL Monocytes # (Auto) 1.07 K/uL Eosinophils # (Auto) 0.00 K/uL Basophils # (Auto) 0.02 K/uL RDW Standard Deviation 45.6 fL RDW Coefficient of Variation 14.2 % Immature Granulocyte % (Auto) 1.4 % Immature Granulocyte # (Auto) 0.20 K/uL Nucleated RBC Absolute Count (auto) 0.03 K/uL Nucleated Red Blood Cells % 0.2 % Sodium Level 139 mmol/L Potassium Level 3.1 mmol/L Chloride Level 106 mmol/L Carbon Dioxide Level 26 mmol/L Anion Gap 7.0 mmol/L Blood Urea Nitrogen 25 mg/dl Creatinine 1.20 mg/dl Est Creatinine Clear Calc Drug Dose 58.2 ml/min Estimated GFR () 65.3 Estimated GFR (Non- 56.4 BUN/Creatinine Ratio 20.7 Random Glucose 110 mg/dl Calcium Level 8.4 mg/dl Bedside Glucose 103 mg/dl Assessment and Plan 81yo male with: Severe neutropenia 2nd to recent chemo s/p neupogen - resolved. Neutropenic fever and severe sepsis (2nd to RLL pneumonia) - resolved. RLL pneumonia - at risk for gram negatives. 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 Just completed 10 days of levaquin recently. cont zosyn and zithromax. day # 8 of zosyn. finished 5 day course of zithromax plan 10 days of zosyn Acute hypoxic resp failure 2nd to #3 and acute/chronic diastolic CHF - improving ; he is now off O2. COPD - improved. Cont scheduled nebs but make them xopenex/atrovent (to help with tachycardia). Change steroids from IV steroids to po prednisone. Wean latter slowly over 1-2 weeks back down to his usual dose of 5mg daily. Thrush - diflucan, day # 7 - improved. Plan 10 days of diflucan. Mucositis - scheduled q6h magic mouthwash - improved. Lesions are crusting over. Insomnia - ongoing issue. His sleep/wake cycle is reversed; sleeping all day and up at night. Family concerned about using the seroquel. Will drop dose to 12.5mg and make PRN. Acute/chronic diastolic CHF - compensated clinically. Resume PO lasix 40mg daily tomorrow. Hypothyroidism - cont synthroid. TSH shows compensation. DVT proph - heparin SC. PT, OT consults - most likely will need rehab. Metabolic encephalopathy - ongoing. Supportive care. Ammonia was normal. CT head ordered and was NEGATIVE for mets. Seroquel HS prn. ANA - CPAP HS. Acute kidney injury - resolved. 2nd to sepsis. T2DM - uncontrolled. Increase lantus and adjust novolog. updated son/daughter updated cont PT, OT Continued [facility] stay due to: inadequate po fluid intake, voiding difficulties, ambulation difficulties, multiple IV medications needed Discharge planning: rehab hospital (vs SNF)
[2017-01-05] MEDS: TIOTROPIUM BROMIDE 5 PUFF/90 MCG INH INH SCH (19:35)
[2017-01-05] MEDS: ATORVASTATIN 40 MG TAB PO SCH (19:35)
[2017-01-06] VITALS (9 sets, daily range): BP systolic 111–133; BP diastolic 57–64; PULSE 96–117; TEMP 36.2–36.5; O2SAT 94–98
[2017-01-06] MEDS: DEXAMETHASONE CONC SOLN 3.75 MG, NYSTATIN SUSP 30 ML, DiphenhydrAMINE HCL SYRUP 300 MG,... PO SCH ×25 (00:45→23:28)
[2017-01-06] MEDS: PIPERACILL/TAZOBAC IV 3.375 GM in DEXTROSE 5% 100ML 100 ML IV SCH ×2 (00:53→09:33)
[2017-01-06 06:00] LABS: HEMATOCRIT 23.7 % (42-52); MEAN CELL VOLUME 90.5 fL (80-100); MEAN CORPUSCULAR HEMOGLOBIN 31.7 pg (25-34); MEAN PLATELET VOLUME 9.9 fL (7.4-10.4); PLATELET COUNT 364 K/uL (130-400); RED BLOOD COUNT 2.62 M/uL (4.7-6.1); WHITE BLOOD COUNT 14.04 K/uL (4.8-10.8)
[2017-01-06] MEDS: LEVOTHYROXINE 125 MCG TAB PO SCH (06:14)
[2017-01-06] MEDS: HEPARIN SOD 5000 UNIT/0.5 ML CARP SQ SCH ×3 (06:14→20:24)
[2017-01-06 06:29] LABS: BUN/CREATININE RATIO 27.3 (10-20); CALCIUM 8.2 mg/dl (8.5-10.1); CREATININE 0.94 mg/dl (0.60-1.40); POTASSIUM 3.2 mmol/L (3.5-5.1)
[2017-01-06 06:47] LABS: BASO % 0.1 %; BASO ABS # 0.02 K/uL (0-0.2); COMPLETE YES; ECHINOCYTES 1+; HYPERSEGMENTED POLYS 1+; IG% 3.2 %; LYMPH % 19.7 %; LYMPH ABS # 2.77 K/uL (1.2-3.4); MONO % 8.1 %; NEUT % 68.9 %; OVALOCYTES 1+; TOXIC GRANULATION 1+
[2017-01-06] MEDS: IPRATROPIUM BROMIDE NEB SOLN 0.02% 2.5 ML VIAL INH SCH ×3 (07:27→21:46)
[2017-01-06] MEDS: LEVALBUTEROL 1.25MG/0.5ML NEB INH SCH ×3 (07:27→21:46)
[2017-01-06] MEDS: BOOST GLUCOSE CONTROL PO SCH ×2 (08:04→20:20)
[2017-01-06] MEDS: ASPIRIN 81 MG ECTAB PO SCH (08:05)
[2017-01-06] MEDS: CLOPIDOGREL BISULFATE 75 MG TAB PO SCH (08:06)
[2017-01-06] MEDS: LANSOPRAZOLE SOLUTAB 30 MG PO SCH ×2 (08:07→20:20)
[2017-01-06] MEDS: PANTOprazole SOD 40 MG TAB PO SCH ×2 (08:07→20:00)
[2017-01-06] MEDS: FUROSEMIDE 40 MG TAB PO SCH (08:08)
[2017-01-06] MEDS: MAGNESIUM OXIDE 400 MG TAB PO SCH ×2 (08:08→20:20)
[2017-01-06] MEDS: DILTIAZEM HCL 240 MG CAPCR PO SCH (08:09)
[2017-01-06] MEDS: FLUCONAZOLE 100 MG TAB PO SCH (08:09)
[2017-01-06] MEDS: GUAIFENESIN 600 MG TABCR PO SCH ×2 (08:10→20:19)
[2017-01-06] MEDS: METOPROLOL SUCC 50MG EXT REL TAB PO SCH (08:10)
[2017-01-06] MEDS ORDERED: POTASSIUM CHLORIDE 10 MEQ TABCR PO ONE (08:30)
[2017-01-06] MEDS: INSULIN ASPART 100 UNITS/ML 3 ML PEN SC SCH ×4 (09:26→20:23)
--- NOTE | 2017-01-06 13:20 | Progress Note ---
Subjective Date of Service: Jan 06, 2017. Subjective Pt evaluation today including: conversation w/ patient, conversation w/ family , physical exam, chart review, lab review, review of studies, review of inpatient medication list Persistent diarrhea and weakness Improved PO intake No fevers or chills No further concerns Problem List Medical Problems: (1) Fever Status: Acute (2) Neutropenic fever Status: Acute (3) PNA (pneumonia) Status: Acute (4) Severe sepsis Status: Acute Review of Systems Constitutional: No chills, No fever Respiratory: No cough, No dyspnea on exertion, No shortness of breath, No sputum, No wheezing Cardiac: No chest pain, No orthopnea Abdomen: + diarrhea, No nausea, No pain, No vomiting Musculoskeletal: No joint pain, No muscle pain Male : No dysuria, No urinary frequency Neurologic: No memory loss, No weakness Objective Vital Signs Date Time Temp Pulse Resp B/P Pulse Ox O2 Delivery O2 Flow Rate FiO2 01/06/17 08:30 96 Room Air 01/06/17 07:54 36.2 115 18 133/64 96 Room Air 01/06/17 07:45 Room Air 01/06/17 07:27 117 14 98 Room Air 01/06/17 00:19 36.4 113 20 128/57 96 Room Air 01/06/17 00:01 Room Air 01/05/17 22:17 77 14 98 Room Air 01/05/17 20:00 Room Air 01/05/17 16:51 36.7 98 20 141/61 94 Room Air 01/05/17 16:00 Room Air 01/05/17 14:16 76 14 94 Room Air Physical Exam General Appearance: WD/WN, no apparent distress Neck: supple, no adenopathy Respiratory/Chest: lungs clear, normal breath sounds Cardiovascular: no gallop, no JVD Abdomen: non tender, soft Neurologic/Psychiatric: alert, oriented x 3 Laboratory Results Last 24 Hours Test 01/05/17 17:30 01/05/17 20:44 01/06/17 05:43 01/06/17 08:03 Bedside Glucose 300 mg/dl 292 mg/dl 61 mg/dl White Blood Count 14.04 K/uL Red Blood Count 2.62 M/uL Hemoglobin 8.3 g/dL Hematocrit 23.7 % Mean Corpuscular Volume 90.5 fL Mean Corpuscular Hemoglobin 31.7 pg Mean Corpuscular Hemoglobin Concent 35.0 g/dl Platelet Count 364 K/uL Mean Platelet Volume 9.9 fL Neutrophils (%) (Auto) 68.9 % Lymphocytes (%) (Auto) 19.7 % Monocytes (%) (Auto) 8.1 % Eosinophils (%) (Auto) 0.0 % Basophils (%) (Auto) 0.1 % Neutrophils # (Auto) 9.66 K/uL Lymphocytes # (Auto) 2.77 K/uL Monocytes # (Auto) 1.14 K/uL Eosinophils # (Auto) 0.00 K/uL Basophils # (Auto) 0.02 K/uL RDW Standard Deviation 48.0 fL RDW Coefficient of Variation 14.6 % Immature Granulocyte % (Auto) 3.2 % Immature Granulocyte # (Auto) 0.45 K/uL Nucleated RBC Absolute Count (auto) 0.05 K/uL Nucleated Red Blood Cells % 0.3 % Hypersegmented Polys 1+ Toxic Granulation 1+ Ovalocytes 1+ Echinocytes 1+ Sodium Level 141 mmol/L Potassium Level 3.2 mmol/L Chloride Level 106 mmol/L Carbon Dioxide Level 28 mmol/L Anion Gap 7.0 mmol/L Blood Urea Nitrogen 26 mg/dl Creatinine 0.94 mg/dl Est Creatinine Clear Calc Drug Dose 74.3 ml/min Estimated GFR () 87.8 Estimated GFR (Non- 75.7 BUN/Creatinine Ratio 27.3 Random Glucose 63 mg/dl Calcium Level 8.2 mg/dl Test 01/06/17 08:25 01/06/17 09:02 01/06/17 11:21 Bedside Glucose 61 mg/dl 79 mg/dl 143 mg/dl Assessment and Plan 81yo male with: Severe neutropenia 2nd to recent chemo s/p neupogen - resolved. Neutropenic fever and severe sepsis (2nd to RLL pneumonia) - resolved. RLL pneumonia - at risk for gram negatives. 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 Just completed 10 days of levaquin recently. cont zosyn and zithromax. Finished 9 daysof zosyn. finished 5 day course of zithromax, diarrhea likely assoc with antibx Acute hypoxic resp failure 2nd to #3 and acute/chronic diastolic CHF - improving ; he is now off O2. COPD - improved. Cont scheduled nebs but make them xopenex/atrovent (to help with tachycardia). Change steroids from IV steroids to po prednisone. Wean latter slowly over 1-2 weeks back down to his usual dose of 5mg daily. Thrush - diflucan, day # 8 - improved. Plan 10 days of diflucan. Mucositis - scheduled q6h magic mouthwash - improved. Lesions are crusting over. Insomnia - ongoing issue. His sleep/wake cycle is reversed; sleeping all day and up at night. Family concerned about using the seroquel. Will drop dose to 12.5mg and make PRN. Acute/chronic diastolic CHF - compensated clinically. Resume PO lasix 40mg on discharge Hypothyroidism - cont synthroid. TSH shows compensation. DVT proph - heparin SC. PT, OT consults - most likely will need rehab. Metabolic encephalopathy - ongoing. Supportive care. Ammonia was normal. CT head ordered and was NEGATIVE for mets. Seroquel HS prn. ANA - CPAP HS. Acute kidney injury - resolved. 2nd to sepsis. T2DM - uncontrolled. Increase lantus and adjust novolog. updated son/daughter updated cont PT, OT, will likely need rehab inpt Continued [facility] stay due to: inadequate po fluid intake, voiding difficulties, ambulation difficulties, multiple IV medications needed Discharge planning: rehab hospital (vs SNF)
[2017-01-06] MEDS: TIOTROPIUM BROMIDE 5 PUFF/90 MCG INH INH SCH (20:19)
[2017-01-06] MEDS: ATORVASTATIN 40 MG TAB PO SCH (20:20)
[2017-01-06] MEDS: INSULIN GLARGINE SOLOSTAR 100 UNITS/ML 3 ML PEN SC SCH (20:23)
[2017-01-07] VITALS (8 sets, daily range): BP systolic 108–130; BP diastolic 55–62; PULSE 95–119; TEMP 36.4–36.7; O2SAT 94–97
[2017-01-07] MEDS: LIDOCAINE HCL 2% VISCOUS SOLN 60 ML, DiphenhydrAMINE HCL SYRUP 150 MG, ALUMINUM/MAGNESI... MT PRN ×4 (04:42)
[2017-01-07] MEDS: DEXAMETHASONE CONC SOLN 3.75 MG, NYSTATIN SUSP 30 ML, DiphenhydrAMINE HCL SYRUP 300 MG,... PO SCH ×20 (06:03→23:33)
[2017-01-07] MEDS: LEVOTHYROXINE 125 MCG TAB PO SCH (06:03)
[2017-01-07] MEDS: HEPARIN SOD 5000 UNIT/0.5 ML CARP SQ SCH ×3 (06:17→21:23)
[2017-01-07 06:57] LABS: BASO % 0.2 %; BASO ABS # 0.02 K/uL (0-0.2); EOS % 0.1 %; HEMATOCRIT 22.2 % (42-52); IG% 3.4 %; LYMPH % 19.1 %; LYMPH ABS # 2.21 K/uL (1.2-3.4); MEAN CELL VOLUME 91.4 fL (80-100); MEAN CORPUSCULAR HEMOGLOBIN 31.3 pg (25-34); MEAN CORPUSCULAR HGB CONC 34.2 g/dl (32-36); MEAN PLATELET VOLUME 10.1 fL (7.4-10.4); MONO % 8.1 %; NEUT % 69.1 %; PLATELET COUNT 393 K/uL (130-400); RED BLOOD COUNT 2.43 M/uL (4.7-6.1); WHITE BLOOD COUNT 11.56 K/uL (4.8-10.8)
[2017-01-07 07:23] LABS: BUN/CREATININE RATIO 24.1 (10-20); CALCIUM 8.3 mg/dl (8.5-10.1); CREATININE 0.94 mg/dl (0.60-1.40); POTASSIUM 3.3 mmol/L (3.5-5.1)
[2017-01-07 07:28] LABS: ACANTHOCYTES 2+; COMPLETE YES
[2017-01-07] MEDS: MAGNESIUM OXIDE 400 MG TAB PO SCH ×2 (07:56→21:10)
[2017-01-07] MEDS: PANTOprazole SOD 40 MG TAB PO SCH ×2 (07:56→21:10)
[2017-01-07] MEDS: GUAIFENESIN 600 MG TABCR PO SCH ×2 (07:56→21:13)
[2017-01-07] MEDS: LANSOPRAZOLE SOLUTAB 30 MG PO SCH ×2 (07:56→21:11)
[2017-01-07] MEDS: FUROSEMIDE 40 MG TAB PO SCH (07:57)
[2017-01-07] MEDS: METOPROLOL SUCC 50MG EXT REL TAB PO SCH (07:57)
[2017-01-07] MEDS: DILTIAZEM HCL 240 MG CAPCR PO SCH (07:58)
[2017-01-07] MEDS: BOOST GLUCOSE CONTROL PO SCH ×2 (07:58→21:09)
[2017-01-07] MEDS: FLUCONAZOLE 100 MG TAB PO SCH (07:58)
[2017-01-07] MEDS: ASPIRIN 81 MG ECTAB PO SCH (07:58)
[2017-01-07] MEDS: CLOPIDOGREL BISULFATE 75 MG TAB PO SCH (07:58)
[2017-01-07] MEDS: INSULIN ASPART 100 UNITS/ML 3 ML PEN SC SCH ×4 (09:06→21:22)
[2017-01-07] MEDS: INSULIN GLARGINE SOLOSTAR 100 UNITS/ML 3 ML PEN SC SCH ×2 (09:07→21:23)
[2017-01-07] MEDS: POTASSIUM CHLORIDE 20 MEQ TABCR PO SCH (09:21)
--- NOTE | 2017-01-07 10:42 | DIAGNOSTIC IMAGING REPORT ---
CHEST ONE VIEW PORTABLE HISTORY: Cough. Pneumonia. COMPARISON: Chest 01/01/2017. FINDINGS: Stable to slightly improved right medial lung base airspace opacity. Mild diffuse interstitial thickening persists. Mild right mediastinal shift remains unchanged. The left lung remains clear. No pleural effusions. No pneumothorax. The heart remains top normal in size. IMPRESSION: Stable to slightly improved right medial lung base airspace opacity. This favors a pneumonia. However, one month chest x-ray follow-up is recommended following a course of antibiotic therapy to ensure complete resolution. Electronically signed by: Guille Baltazar M.D. 01/07/2017 10:40 AM Dictated Date/Time: 01/07/2017 10:38 AM
[2017-01-07 13:39] LABS: HEMATOCRIT 22.4 % (42-52)
--- NOTE | 2017-01-07 14:14 | Progress Note ---
Subjective Date of Service: Jan 07, 2017. Subjective Pt evaluation today including: conversation w/ patient, conversation w/ family , physical exam, chart review, lab review, review of studies, conversation w/ application support consultant, review of inpatient medication list Resting comfortably in bed Transient confusion Progressing with PT Cough with white sputum No fevers or chills Diarrhea improving Problem List Medical Problems: (1) Fever Status: Acute (2) Neutropenic fever Status: Acute (3) PNA (pneumonia) Status: Acute (4) Severe sepsis Status: Acute Review of Systems Constitutional: No chills, No fever Eyes: No eye pain, No worsening of vision Respiratory: + cough, + sputum, No dyspnea on exertion, No shortness of breath , No wheezing Cardiac: No chest pain, No orthopnea Abdomen: No constipation, No diarrhea, No nausea, No pain, No vomiting Musculoskeletal: No joint pain, No muscle pain Male : No dysuria, No urinary frequency Psychiatric: No anxiety, No depression symptoms Objective Vital Signs Date Time Temp Pulse Resp B/P Pulse Ox O2 Delivery O2 Flow Rate FiO2 01/07/17 11:23 36.6 95 18 130/56 97 Room Air 01/07/17 08:30 94 Room Air 01/07/17 08:13 36.4 112 16 120/61 94 Room Air 01/07/17 00:04 36.5 119 20 127/62 94 Room Air 01/07/17 00:01 Room Air 01/06/17 21:46 100 16 96 Room Air 01/06/17 19:30 Room Air 01/06/17 16:15 36.5 103 17 113/57 95 Room Air 01/06/17 16:00 95 Room Air 01/06/17 15:33 Room Air 01/06/17 14:48 110 14 95 Room Air Physical Exam General Appearance: WD/WN, no apparent distress Neck: supple, no adenopathy Respiratory/Chest: lungs clear, normal breath sounds Cardiovascular: no edema, no gallop Abdomen: non tender, soft Neurologic/Psychiatric: alert, normal mood/affect Laboratory Results Last 24 Hours Test 01/06/17 16:10 01/06/17 19:47 01/07/17 06:15 01/07/17 07:39 Bedside Glucose 282 mg/dl 248 mg/dl 82 mg/dl White Blood Count 11.56 K/uL Red Blood Count 2.43 M/uL Hemoglobin 7.6 g/dL Hematocrit 22.2 % Mean Corpuscular Volume 91.4 fL Mean Corpuscular Hemoglobin 31.3 pg Mean Corpuscular Hemoglobin Concent 34.2 g/dl Platelet Count 393 K/uL Mean Platelet Volume 10.1 fL Neutrophils (%) (Auto) 69.1 % Lymphocytes (%) (Auto) 19.1 % Monocytes (%) (Auto) 8.1 % Eosinophils (%) (Auto) 0.1 % Basophils (%) (Auto) 0.2 % Neutrophils # (Auto) 7.99 K/uL Lymphocytes # (Auto) 2.21 K/uL Monocytes # (Auto) 0.94 K/uL Eosinophils # (Auto) 0.01 K/uL Basophils # (Auto) 0.02 K/uL RDW Standard Deviation 49.4 fL RDW Coefficient of Variation 14.8 % Immature Granulocyte % (Auto) 3.4 % Immature Granulocyte # (Auto) 0.39 K/uL Nucleated RBC Absolute Count (auto) 0.05 K/uL Nucleated Red Blood Cells % 0.4 % Acanthocytes 2+ Sodium Level 140 mmol/L Potassium Level 3.3 mmol/L Chloride Level 106 mmol/L Carbon Dioxide Level 29 mmol/L Anion Gap 5.0 mmol/L Blood Urea Nitrogen 23 mg/dl Creatinine 0.94 mg/dl Est Creatinine Clear Calc Drug Dose 74.3 ml/min Estimated GFR () 87.8 Estimated GFR (Non- 75.7 BUN/Creatinine Ratio 24.1 Random Glucose 86 mg/dl Calcium Level 8.3 mg/dl Test 01/07/17 11:35 01/07/17 13:08 01/07/17 13:30 Bedside Glucose 126 mg/dl Hemoglobin 7.7 g/dL Hematocrit 22.4 % Assessment and Plan 81yo male with: Severe neutropenia 2nd to recent chemo s/p neupogen - resolved. Neutropenic fever and severe sepsis (2nd to RLL pneumonia) - resolved. RLL pneumonia - at risk for gram negatives. 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 Just completed 10 days of levaquin recently. cont zosyn and zithromax. Finished 9 daysof zosyn. finished 5 day course of zithromax, diarrhea likely assoc with antibx Anemia of chronic disease - below baseline, cont to monitor, asymptomatic Acute hypoxic resp failure 2nd to #3 and acute/chronic diastolic CHF - improving ; he is now off O2. COPD - improved. Cont scheduled nebs but make them xopenex/atrovent (to help with tachycardia). Change steroids from IV steroids to po prednisone. Wean latter slowly over 1-2 weeks back down to his usual dose of 5mg daily. Thrush - diflucan, day # 9 - improved. Plan 10 days of diflucan. Mucositis - scheduled q6h magic mouthwash - improved. Lesions are crusting over. Insomnia - ongoing issue. His sleep/wake cycle is reversed; sleeping all day and up at night. Family concerned about using the seroquel. Will drop dose to 12.5mg and make PRN. Acute/chronic diastolic CHF - compensated clinically. Resume PO lasix 40mg on discharge Hypothyroidism - cont synthroid. TSH shows compensation. DVT proph - heparin SC. PT, OT consults - most likely will need rehab. Metabolic encephalopathy - ongoing. Supportive care. Ammonia was normal. CT head ordered and was NEGATIVE for mets. Seroquel HS prn. ANA - CPAP HS. Acute kidney injury - resolved. 2nd to sepsis. T2DM - uncontrolled. Increase lantus and adjust novolog. updated son/daughter updated cont PT, OT, will likely need rehab inpt Continued [facility] stay due to: inadequate po fluid intake, voiding difficulties, ambulation difficulties, multiple IV medications needed Discharge planning: rehab hospital (vs SNF)
[2017-01-07] MEDS: IPRATROPIUM BROMIDE NEB SOLN 0.02% 2.5 ML VIAL INH SCH ×3 (14:34→21:54)
[2017-01-07] MEDS: LEVALBUTEROL 1.25MG/0.5ML NEB INH SCH ×3 (14:34→21:54)
[2017-01-07] MEDS: TIOTROPIUM BROMIDE 5 PUFF/90 MCG INH INH SCH (21:11)
[2017-01-07] MEDS: ATORVASTATIN 40 MG TAB PO SCH (21:14)
[2017-01-08] VITALS (21 sets, daily range): BP systolic 106–148; BP diastolic 43–64; PULSE 87–108; TEMP 36.2–37; O2SAT 93–98; Ht 180.3 cm; Wt 100.2 kg
[2017-01-08] MEDS: DEXAMETHASONE CONC SOLN 3.75 MG, NYSTATIN SUSP 30 ML, DiphenhydrAMINE HCL SYRUP 300 MG,... PO SCH ×15 (05:03→17:15)
[2017-01-08] MEDS: LEVOTHYROXINE 125 MCG TAB PO SCH (05:03)
[2017-01-08] MEDS: HEPARIN SOD 5000 UNIT/0.5 ML CARP SQ SCH ×3 (05:11→21:59)
[2017-01-08] MEDS: LEVALBUTEROL 1.25MG/0.5ML NEB INH SCH ×3 (06:00→19:40)
[2017-01-08] MEDS: IPRATROPIUM BROMIDE NEB SOLN 0.02% 2.5 ML VIAL INH SCH ×3 (06:00→19:40)
[2017-01-08 07:02] LABS: BASO % 0.1 %; BASO ABS # 0.01 K/uL (0-0.2); HEMATOCRIT 21.2 % (42-52); IG% 2.6 %; LYMPH % 26.3 %; LYMPH ABS # 2.61 K/uL (1.2-3.4); MEAN CELL VOLUME 92.6 fL (80-100); MEAN CORPUSCULAR HEMOGLOBIN 31.9 pg (25-34); MEAN CORPUSCULAR HGB CONC 34.4 g/dl (32-36); MEAN PLATELET VOLUME 9.3 fL (7.4-10.4); MONO % 7.2 %; NEUT % 63.8 %; PLATELET COUNT 400 K/uL (130-400); RED BLOOD COUNT 2.29 M/uL (4.7-6.1); WHITE BLOOD COUNT 9.94 K/uL (4.8-10.8)
[2017-01-08 07:19] LABS: ANISOCYTOSIS PRESENT; COMPLETE YES; ECHINOCYTES 1+; LARGE PLATELETS 1+; POIKILOCYTOSIS PRESENT; TOXIC GRANULATION 1+
[2017-01-08 07:38] LABS: BUN/CREATININE RATIO 24.5 (10-20); CALCIUM 8.4 mg/dl (8.5-10.1); CREATININE 0.91 mg/dl (0.60-1.40)
[2017-01-08] MEDS: ASPIRIN 81 MG ECTAB PO SCH (07:58)
[2017-01-08] MEDS: GUAIFENESIN 600 MG TABCR PO SCH ×2 (07:58→21:58)
[2017-01-08] MEDS: MAGNESIUM OXIDE 400 MG TAB PO SCH ×2 (07:59→21:54)
[2017-01-08] MEDS: METOPROLOL SUCC 50MG EXT REL TAB PO SCH (07:59)
[2017-01-08] MEDS: CLOPIDOGREL BISULFATE 75 MG TAB PO SCH (08:00)
[2017-01-08] MEDS: LANSOPRAZOLE SOLUTAB 30 MG PO SCH (08:00)
[2017-01-08] MEDS: DILTIAZEM HCL 240 MG CAPCR PO SCH (08:00)
[2017-01-08] MEDS: FLUCONAZOLE 100 MG TAB PO SCH (08:00)
[2017-01-08] MEDS: PANTOprazole SOD 40 MG TAB PO SCH (08:00)
[2017-01-08] MEDS: POTASSIUM CHLORIDE 20 MEQ TABCR PO SCH (08:05)
[2017-01-08] MEDS: FUROSEMIDE 40 MG TAB PO SCH (08:06)
[2017-01-08] MEDS: BOOST GLUCOSE CONTROL PO SCH ×2 (08:06→20:00)
[2017-01-08] MEDS ORDERED: NURSING VERBAL MED ORDER ONE ×3 (08:15→17:30)
[2017-01-08] MEDS: PANTOprazole INJ 40 MG in SYRINGE 0 ML IV SCH ×2 (09:02→21:57)
[2017-01-08] MEDS: INSULIN ASPART 100 UNITS/ML 3 ML PEN SC SCH ×4 (09:04→21:00)
[2017-01-08] MEDS: INSULIN GLARGINE SOLOSTAR 100 UNITS/ML 3 ML PEN SC SCH (09:49)
--- NOTE | 2017-01-08 12:46 | Progress Note ---
Subjective Date of Service: Jan 08, 2017. Subjective Pt evaluation today including: conversation w/ patient, conversation w/ family , physical exam, chart review, lab review, review of studies, review of inpatient medication list Resting comfortably in bed Daughter at bedside No chest pain, shortness of breath or abdominal pain Problem List Medical Problems: (1) Fever Status: Acute (2) Neutropenic fever Status: Acute (3) PNA (pneumonia) Status: Acute (4) Severe sepsis Status: Acute Review of Systems Constitutional: No chills, No fever Respiratory: No cough, No dyspnea on exertion, No shortness of breath, No sputum, No wheezing Cardiac: No chest pain, No orthopnea Abdomen: No constipation, No diarrhea, No nausea, No pain, No vomiting Musculoskeletal: No joint pain, No muscle pain Male : No dysuria, No urinary frequency Objective Vital Signs Date Time Temp Pulse Resp B/P Pulse Ox O2 Delivery O2 Flow Rate FiO2 01/08/17 12:37 36.9 96 20 106/51 93 01/08/17 11:52 36.7 101 20 118/64 01/08/17 11:20 36.4 99 20 112/57 94 01/08/17 11:05 36.5 98 20 108/51 93 01/08/17 10:48 36.4 101 20 119/57 01/08/17 10:45 36.4 101 20 119/57 01/08/17 08:00 36.2 106 18 126/56 94 Room Air 01/08/17 08:00 Room Air 01/08/17 06:00 101 16 96 Room Air 01/08/17 01:20 36.7 103 20 134/56 95 Room Air 01/08/17 00:00 96 Room Air 01/07/17 21:55 102 16 96 Room Air 01/07/17 19:38 Room Air 01/07/17 15:41 36.7 108 18 125/62 95 Room Air 01/07/17 14:34 100 16 95 Room Air Physical Exam General Appearance: WD/WN, no apparent distress Neck: supple, no adenopathy Respiratory/Chest: lungs clear, normal breath sounds Cardiovascular: no gallop, no JVD Neurologic/Psychiatric: alert, normal mood/affect Laboratory Results Last 24 Hours Test 01/07/17 13:30 01/07/17 16:24 01/07/17 20:28 01/08/17 06:49 Hemoglobin 7.7 g/dL 7.3 g/dL Hematocrit 22.4 % 21.2 % Magnesium Level 2.1 mg/dl Bedside Glucose 125 mg/dl 221 mg/dl White Blood Count 9.94 K/uL Red Blood Count 2.29 M/uL Mean Corpuscular Volume 92.6 fL Mean Corpuscular Hemoglobin 31.9 pg Mean Corpuscular Hemoglobin Concent 34.4 g/dl Platelet Count 400 K/uL Mean Platelet Volume 9.3 fL Neutrophils (%) (Auto) 63.8 % Lymphocytes (%) (Auto) 26.3 % Monocytes (%) (Auto) 7.2 % Eosinophils (%) (Auto) 0.0 % Basophils (%) (Auto) 0.1 % Neutrophils # (Auto) 6.34 K/uL Lymphocytes # (Auto) 2.61 K/uL Monocytes # (Auto) 0.72 K/uL Eosinophils # (Auto) 0.00 K/uL Basophils # (Auto) 0.01 K/uL RDW Standard Deviation 50.2 fL RDW Coefficient of Variation 15.2 % Immature Granulocyte % (Auto) 2.6 % Immature Granulocyte # (Auto) 0.26 K/uL Toxic Granulation 1+ Large Platelets 1+ Poikilocytosis PRESENT Anisocytosis PRESENT Echinocytes 1+ Sodium Level 141 mmol/L Potassium Level 3.0 mmol/L Chloride Level 106 mmol/L Carbon Dioxide Level 28 mmol/L Anion Gap 7.0 mmol/L Blood Urea Nitrogen 22 mg/dl Creatinine 0.91 mg/dl Est Creatinine Clear Calc Drug Dose 76.8 ml/min Estimated GFR () 91.3 Estimated GFR (Non- 78.8 BUN/Creatinine Ratio 24.5 Random Glucose 64 mg/dl Calcium Level 8.4 mg/dl Test 01/08/17 07:48 01/08/17 09:13 01/08/17 11:22 Bedside Glucose 68 mg/dl 84 mg/dl 116 mg/dl Assessment and Plan 81yo male with: Severe neutropenia 2nd to recent chemo s/p neupogen - resolved. Neutropenic fever and severe sepsis (2nd to RLL pneumonia) - resolved. Anemia likely of chronic disease - will get FOBT, and transfuse 2 units PRBCS RLL pneumonia - at risk for gram negatives. 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 Just completed 10 days of levaquin recently. cont zosyn and zithromax. Finished 9 days of zosyn. Finished 5 day course of zithromax, diarrhea likely assoc with antibx Anemia of chronic disease - below baseline, cont to monitor, asymptomatic Acute hypoxic resp failure 2nd to # 3 and acute/chronic diastolic CHF - improving; he is now off O2. COPD - improved. Cont scheduled nebs but make them xopenex/atrovent (to help with tachycardia). Change steroids from IV steroids to po prednisone. Wean latter slowly over 1-2 weeks back down to his usual dose of 5mg daily. Thrush - diflucan, day # 9 - improved. Plan 10 days of diflucan. Mucositis - scheduled q6h magic mouthwash - improved. Lesions are crusting over. Insomnia - ongoing issue. His sleep/wake cycle is reversed; sleeping all day and up at night. Family concerned about using the seroquel. Will drop dose to 12.5mg and make PRN. Acute/chronic diastolic CHF - compensated clinically. Resume PO lasix 40mg on discharge Hypothyroidism - cont synthroid. TSH shows compensation. DVT proph - heparin SC. PT, OT consults - most likely will need rehab. Metabolic encephalopathy - ongoing. Supportive care. Ammonia was normal. CT head ordered and was NEGATIVE for mets. Seroquel HS prn. ANA - CPAP HS. Acute kidney injury - resolved. 2nd to sepsis. T2DM - uncontrolled. Increase lantus and adjust novolog. updated son/daughter updated cont PT, OT, will likely need rehab inpt Continued [facility] stay due to: inadequate po fluid intake, voiding difficulties, ambulation difficulties, multiple IV medications needed Discharge planning: rehab hospital (vs SNF)
[2017-01-08] MEDS ORDERED: INSULIN GLARGINE SOLOSTAR 100 UNITS/ML 3 ML PEN SC SCH (20:00)
[2017-01-08 21:42] LABS: HEMATOCRIT 25.5 % (42-52)
[2017-01-08] MEDS: ACETAMINOPHEN 325 MG TAB PO PRN (21:53)
[2017-01-08] MEDS: TIOTROPIUM BROMIDE 5 PUFF/90 MCG INH INH SCH (21:57)
[2017-01-08] MEDS: ATORVASTATIN 40 MG TAB PO SCH (21:58)
[2017-01-08] MEDS: LIDOCAINE HCL 2% VISCOUS SOLN 60 ML, DiphenhydrAMINE HCL SYRUP 150 MG, ALUMINUM/MAGNESI... MT PRN ×4 (22:43)
[2017-01-09 04:00] VITALS: BP 160/81; PULSE 90; TEMP 36.5; O2SAT 94
[2017-01-09] MEDS: IPRATROPIUM BROMIDE NEB SOLN 0.02% 2.5 ML VIAL INH SCH ×2 (06:00→13:51)
[2017-01-09] MEDS: LEVALBUTEROL 1.25MG/0.5ML NEB INH SCH ×2 (06:00→13:51)
[2017-01-09] MEDS: DEXAMETHASONE CONC SOLN 3.75 MG, NYSTATIN SUSP 30 ML, DiphenhydrAMINE HCL SYRUP 300 MG,... PO SCH ×15 (06:00→12:15)
[2017-01-09] MEDS: HEPARIN SOD 5000 UNIT/0.5 ML CARP SQ SCH ×2 (06:36→13:15)
[2017-01-09] MEDS: LEVOTHYROXINE 125 MCG TAB PO SCH (06:37)
[2017-01-09 07:57] VITALS: PULSE 97; O2SAT 94
[2017-01-09 08:18] VITALS: BP 141/55; PULSE 94; TEMP 37; O2SAT 93
[2017-01-09 08:40] LABS: BUN/CREATININE RATIO 23.2 (10-20); CALCIUM 8.1 mg/dl (8.5-10.1); CREATININE 0.87 mg/dl (0.60-1.40); POTASSIUM 3.2 mmol/L (3.5-5.1)
[2017-01-09] MEDS ORDERED: GLUCOSE 40% GEL 15 GM TUBE ONE (08:48)
[2017-01-09] MEDS: INSULIN ASPART 100 UNITS/ML 3 ML PEN SC SCH ×2 (08:52→12:16)
[2017-01-09] MEDS: ASPIRIN 81 MG ECTAB PO SCH (08:56)
[2017-01-09] MEDS: GUAIFENESIN 600 MG TABCR PO SCH (08:57)
[2017-01-09] MEDS: METOPROLOL SUCC 50MG EXT REL TAB PO SCH (08:57)
[2017-01-09] MEDS: FLUCONAZOLE 100 MG TAB PO SCH (08:59)
[2017-01-09] MEDS: MAGNESIUM OXIDE 400 MG TAB PO SCH (08:59)
[2017-01-09] MEDS: CLOPIDOGREL BISULFATE 75 MG TAB PO SCH (09:00)
[2017-01-09] MEDS: PANTOprazole INJ 40 MG in SYRINGE 0 ML IV SCH (09:00)
[2017-01-09] MEDS: DILTIAZEM HCL 240 MG CAPCR PO SCH (09:00)
[2017-01-09] MEDS: FUROSEMIDE 40 MG TAB PO SCH (09:00)
[2017-01-09] MEDS: POTASSIUM CHLORIDE 20 MEQ TABCR PO SCH (09:01)
[2017-01-09] MEDS: BOOST GLUCOSE CONTROL PO SCH (09:01)
[2017-01-09] MEDS: INSULIN GLARGINE SOLOSTAR 100 UNITS/ML 3 ML PEN SC SCH ×2 (09:16→09:17)
[2017-01-09] MEDS ORDERED: NURSING VERBAL MED ORDER ONE ×2 (10:00→13:00)
[2017-01-09] MEDS ORDERED: PHARMACY GLYCEMIC MGMT CONSULT PRN (10:03)
[2017-01-09 10:16] LABS: HEMATOCRIT 26.6 % (42-52); MEAN CELL VOLUME 91.4 fL (80-100); MEAN CORPUSCULAR HEMOGLOBIN 31.3 pg (25-34); MEAN PLATELET VOLUME 9.2 fL (7.4-10.4); PLATELET COUNT 424 K/uL (130-400); RED BLOOD COUNT 2.91 M/uL (4.7-6.1); WHITE BLOOD COUNT 10.75 K/uL (4.8-10.8)
[2017-01-09 10:18] LABS: MEAN CORPUSCULAR HGB CONC 34.2 g/dl (32-36)
[2017-01-09 10:45] LABS: ACANTHOCYTES 1+; BASO % 0.1 %; BASO ABS # 0.01 K/uL (0-0.2); COMPLETE YES; EOS % 0.1 %; IG% 0.8 %; LYMPH ABS # 1.83 K/uL (1.2-3.4); MONO % 7.8 %; NEUT % 74.2 %
--- NOTE | 2017-01-09 10:46 | Pharmacy Progress Note ---
Glycemic Control Intl Consult Date of Service Jan 09, 2017. Scope Glycemic Pharmacist consulted by Dr Peterson on 01/09/17 for glycemic control and to write orders per [facility] inpatient glycemic control protocol Objective Weight (Kilograms): 100.200 Accuchecks BSG (last 24hrs): Test 01/08/17 11:22 01/08/17 16:22 01/08/17 20:28 01/09/17 07:26 Bedside Glucose 116 mg/dl (70-99) 132 mg/dl (70-99) 145 mg/dl (70-99) Random Glucose 42 mg/dl (70-99) Test 01/09/17 08:01 01/09/17 08:31 01/09/17 08:56 01/09/17 09:35 Bedside Glucose 51 mg/dl (70-99) 50 mg/dl (70-99) 61 mg/dl (70-99) > 600 mg/dl (70-99) Laboratory Data (last 24hrs) Test 01/09/17 07:26 01/09/17 10:06 Anion Gap 8.0 mmol/L BUN/Creatinine Ratio 23.2 Blood Urea Nitrogen 20 mg/dl Creatinine 0.87 mg/dl Potassium Level 3.2 mmol/L Sodium Level 140 mmol/L White Blood Count 10.75 K/uL Red Blood Count 2.91 M/uL Hemoglobin 9.1 g/dL Hematocrit 26.6 % Mean Corpuscular Volume 91.4 fL Mean Corpuscular Hemoglobin 31.3 pg Mean Corpuscular Hemoglobin Concent 34.2 g/dl Platelet Count 424 K/uL Mean Platelet Volume 9.2 fL Recent Pertinent Medications Outpatient Anti-diabetic Regimen: * Metformin 2000 mg ER PO daily * Januvia 100 mg PO daily * Lantus 8 units HS * A1c unavailable The patient is currently receiving: * Basal insulin: Lantus 25 units every 12 hours * Correctional Insulin: Novolog Correction per scale ACHS Goal Range: Low 120 mg/dL - High 150 mg/dL Correction Factor: 15 mg/dL/unit * Prandial insulin: Per carb ratio of 1 unit per 6 grams CHO consumed Risk Factors for Insulin Resistance: * Steroids * Diet Assessment & Plan ASSESSMENT: * 81 yo M admitted 12/29/16 with neutropenic fever/pneumonia initiated on antibiotics and high-dose IV steroids * At that time, patient was initiated on basal/bolus regimen per MD and was aggressively titrated due to steroid-induced hyperglycemia * IV steroids were changed to PO on 01/04/17 and pt status greatly improved --> causing insulin needs to dramatically decrease * Fasting BSGs have been below goal range X 4 days * Hold Lantus until fasting BSG >120 mg/dL * Loosen Novolog coverage to weight-based, stress of 2 * Level of outpatient control unknown- obtain A1c when possible * Per admitting note, patient known to be noncompliant * ADA & AACE recommend a goal blood sugar range 140-180 mg/dl for the majority of critically ill & non-critically ill patients. However, more stringent targets may be selected in individual cases. PLAN FOR INPATIENT GLYCEMIC CONTROL: * Hold outpatient oral diabetes medications * Hold basal insulin at this time, resume only when Fasting BSG >120 mg/dL * Correctional Insulin with NOVOLOG per scale ACHS or Q6hrs while NPO * Loosen Goal Range: Low 120 mg/dL - High 160 mg/dL * Loosen Correction Factor: 25 mg/dL/unit * Loosen Nutritional / Prandial insulin per carb ratio of 1 unit per 10 grams CHO consumed * Please note that the plan above was derived based on current level of insulin resistance and hospital stress. These recommendations are appropriate for inpatient admission only. Plan of care upon discharge will need to be reassessed to avoid potential outpatient hypo/hyperglycemia. Thank you.
[2017-01-09] MEDS ORDERED: GUAIFENESIN/CODEINE 100MG/10MG 5ML UDC PO PRN (11:15)
[2017-01-09] MEDS: LIDOCAINE HCL 2% VISCOUS SOLN 60 ML, DiphenhydrAMINE HCL SYRUP 150 MG, ALUMINUM/MAGNESI... MT PRN ×4 (11:17)
[2017-01-09] MEDS ORDERED: GFNSR600 PO (12:18)
[2017-01-09] MEDS ORDERED: PRED10TA PO (12:18)
--- NOTE | 2017-01-09 12:22 | Discharge Instructions ---
Discharge Instructions Date of Service Jan 09, 2017. Admission Reason for Admission: Sepsis Discharge Discharge Diagnosis / Problem: Neutorpenic fever, pneumonia Discharge Goals Goal(s): Decrease discomfort, Improve function, Increase independence, Improve disease control, Learn about illness, Diagnostic testing, Therapeutic intervention, Prevent Disease Progression Activity Recommendations Activity Limitations: resume your previous activity Shower/Bathe: no limitations . Instructions / Follow-Up Instructions / Follow-Up Patient to be discharged to [facility] Please take prednisone taper as directed Mucinex prescription will also be provided, please take as directed Patient will no longer require antibiotics or antifungal drugs on discharge Current Hospital Diet Patient's current hospital diet: Diabetes Type 2 Diet Discharge Diet Recommended Diet: Diabetes Type 2 Diet Pending Studies Studies pending at discharge: no Medical Emergencies . Who to Call and When: Medical Emergencies: If at any time you feel your situation is an emergency, please call 911 immediately. . Non-Emergent Contact Non-Emergency issues call your: Primary Care Provider Call Non-Emergent contact if: you have a fever, your pain is worsening . . "Provider Documentation" section prepared by Kristian Peterson. VTE Core Measure Inpt VTE Proph given/why not?: Unfractionated heparin SQ, T.E.D. Stockings, SCD 's
[2017-01-09] MEDS ORDERED: DIPH-437 PO (12:48)
[2017-01-09] MEDS ORDERED: GUAISYP4 PO (12:48)
[2017-01-09 13:09] VITALS: BP 141/55; PULSE 94; TEMP 37; O2SAT 93
--- NOTE | 2017-01-09 13:45 | Discharge Summary ---
Discharge Summary Date of Service Jan 09, 2017. Discharge Summary Admission Date: Dec 29, 2016 at 17:42 Discharge Date: Jan 09, 2017 Discharge Disposition: Rehab ([facility]) Principal Diagnosis: Neutropenic fever, pneumonia Immunizations: Have You Had Influenza Vaccine: No Influenza Vaccine Date: Jul 04, 2010 History of Tetanus Vaccine?: UTD History of Pneumococcal: No History of Hepatitis B Vaccine: No Consultations: Hematology/oncology Medication Reconciliation New Medications: Acetaminophen/Diphenhydramine (Tylenol Pm) 500 Mg/25 Mg Tab 1 TAB PO HS for 30 Days, #30 TAB Prednisone Tab (Prednisone) 10 Mg Tab 10 MG PO UD for 12 Days, #18 TAB Prednisone taper: Please take 3 pills daily for 3 days then 2 pills daily for 3 days then 1 pill daily for 3 days then go back to prednisone 5 mg dose pt was originally on Guaifenesin Ext Rel (Mucinex Ext Rel) 600 Mg Tabcr 1200 MG PO Q12 for 7 Days, #28 TABS Guaifenesin/Codeine (Robitussin-Ac Syrup) Syrp 5 ML PO Q6H PRN for Cough, #1 BTL Continued Medications: Acetaminophen (Tylenol) 500 Mg Tab 1000 MG PO Q4H PRN for Pain, TAB NEEDED FOR HAND,FINGER PAIN. Albuterol 0.5% Soln (Ventolin 0.5% Soln) Nebu 1 VIAL NEB DAILY PRN for PRN for 30 Days, #120 VIAL 5 Refills Albuterol Sulfate (Proair Hfa) 108 Mcg/ Aer 2 PUFFS INH QID PRN for Wheezing Aspirin (Aspirin Ec) 81 Mg Tab 81 MG PO DIRECTED TAKE WEDNESDAY AND WEDNESDAY Atorvastatin (Lipitor) 80 Mg Tab 80 MG PO HS Cetirizine (Zyrtec) 10 Mg Tab 10 MG PO DAILY PRN for Allergies, 0 Refills Cholecalciferol (Vitamin D-3) 1,000 Unit Tab 1000 INTER.UNIT PO BID Clopidogrel (Plavix) 75 Mg Tab 75 MG PO DAILY, TAB Coenzyme Q10 (Ubidecarenone) (Coq10) 100 Mg Cap 100 MG PO DAILY Cyanocobalamin (Vitamin B-12) 1,000 Mcg Tab 1000 MCG PO DAILY Diltiazem Hcl Coated Beads (Cartia Xt) 240 Mg Cap 1 CAP PO DAILY for 30 Days, #30 CAP 5 Refills Ferrous Sulfate (Kp Ferrous Sulfate) 325 Mg Tab 325 MG PO DAILY, TAB 3 Refills Fish Oil ([place]-3) 1 Ea Cap 1000 MG PO DAILY, 0 Refills Fluticasone Furoate-Vilanterol (Breo Ellipta) 1 Inh Inh 1 INHA INH DAILY Furosemide (Furosemide) 40 Mg Tab 40 MG PO QAM, #45 [id number]-Isa C- (Glucosamine Chondroitin 1) 1 Cap Cap 1500 MG PO DAILY Insulin Glargine (Lantus Solostar) 100 Unit/Ml Inj 8 UNITS SC QPM, PEN Levothyroxine Sodium (Levothyroxine Sodium) 125 Mcg Tab 125 MCG PO QAM, #30 Metformin Hcl (Glucophage Ext Rel) 1,000 Mg Tab 2000 MG PO QAM, #60 Metoprolol Succinate (Metoprolol Succinate ER) 50 Mg Tabcr 50 TAB PO QAM Multiple Vitamins W/ Minerals (Centrum Silver Adult 50+) 1 Tab Tab 1 TAB PO DAILY Olmesartan Medoxomil (Benicar) 40 Mg Tab 40 MG PO QAM Pantoprazole (Pantoprazole Sodium) 40 Mg Tab 40 MG PO BID, #60 TAB Potassium Ext Rel (Klor-Con) 20 Meq Tabcr 20 MEQ PO DAILY, TAB Prednisone (Prednisone) 5 Mg Tab 5 MG PO DAILY, #30 Sitagliptin (Januvia) 100 Mg Tab 100 MG PO DAILY, #30 Tiotropium [place] (Spiriva Handihaler) 30 Puff/540 Mcg Aerp 1 CAP INH QPM Discontinued Medications: Furosemide (Lasix) 40 Mg Tab 20 MG PO QPM, TAB Discharge Exam Review of Systems: Constitutional: + fatigue, + weakness, No chills, No fever Respiratory: + cough, + dyspnea on exertion, + sputum, No wheezing Cardiovascular: No chest pain, No orthopnea Abdomen: No nausea, No pain Musculoskeletal: No joint pain, No muscle pain Genitourinary - Male: No dysuria, No urinary frequency Neurologic: No numbness/tingling, No paralysis Physical Exam: General Appearance: WD/WN, no apparent distress Neck: supple, no adenopathy Respiratory/Chest: lungs clear, normal breath sounds Cardiovascular: no edema, no gallop Abdomen / GI: non tender, soft Neurologic/Psychiatric: alert, normal mood/affect Hospital Course 81yo male with: Severe neutropenia 2nd to recent chemo s/p neupogen - resolved. Neutropenic fever and severe sepsis (2nd to RLL pneumonia) - resolved. Anemia likely of chronic disease - transfused 2 units PRBCS, at baseline RLL pneumonia - at risk for gram negatives. 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 Just completed 10 days of levaquin recently. cont zosyn and zithromax.Finished 9 days of zosyn. Finished 5 day course of zithromax, diarrhea likely assoc with antibx Repet CXR determined improvement in PNA Anemia of chronic disease - below baseline, cont to monitor, asymptomatic Acute hypoxic resp failure 2nd to # 3 and acute/chronic diastolic CHF - improving; he is now off O2. COPD - improved. Cont scheduled nebs but make them xopenex/atrovent (to help with tachycardia). Change steroids from IV steroids to po prednisone. Wean latter slowly over 1-2 weeks back down to his usual dose of 5mg daily. Thrush - diflucan, day # 10 - improved. Mucositis - scheduled q6h magic mouthwash - improved. Lesions are crusting over. Insomnia - ongoing issue. His sleep/wake cycle is reversed; sleeping all day and up at night. Family concerned about using the seroquel. Will drop dose to 12.5mg and make PRN. Acute/chronic diastolic CHF - compensated clinically. Resume PO lasix 40mg on discharge Hypothyroidism - cont synthroid. TSH shows compensation. DVT proph - heparin SC. PT, OT consults - most likely will need rehab. Metabolic encephalopathy - ongoing. Supportive care. Ammonia was normal. CT head ordered and was NEGATIVE for mets. Seroquel HS prn. ANA - CPAP HS. Acute kidney injury - resolved. 2nd to sepsis. T2DM - uncontrolled. Increase lantus and adjust novolog. t Total Time Spent: Greater than 30 minutes This includes examination of the patient, discharge planning, medication reconciliation, and communication with other providers. Discharge Instructions Please refer to the electronic Patient Visit Report (Discharge Instructions) for additional information. Additional Copies To Kennedy George M.D.
[2017-01-09 13:59] VITALS: PULSE 97; O2SAT 97
[2017-01-09] MEDS ORDERED: BOOST GLUCOSE CONTROL PO SCH (17:00)
[2017-01-10] MEDS ORDERED: INSULIN GLARGINE SOLOSTAR 100 UNITS/ML 3 ML PEN SC SCH (08:00)
--- NOTE | 2017-02-24 14:30 | EDITING REQUIRED CODING QUERY ---
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 Please assist us with the question(s) below: In responding to this query, please exercise your independent professional judgement. The fact that a question is asked does not imply that any particular answer is desired or expected. We appreciate your clarification on this issue. (X) Sepsis Specify Organism: Specify Associated Condition/Diagnosis: (X) Present on Admission () Not present on admission () Unable to clinically determine () Sepsis Ruled out () Other, patient has:
[2017-05-28] MEDS ORDERED: augmentin (09:14)
== END 2017-01-09 15:56 | DRG 871 ==
LOC: ENRESERVTM → ENRESERVDT → EDBD 13:42 → C.EDB 13:44 → C.EDINP 17:42 → EDBEDREQ 17:54 → C.MED 12-30 00:45 → C.4E 01-03 15:55
PROVIDERS: ADMIT Family Medicine; ATTEND Hospitalist
DX: A41.9 Sepsis, unspecified organism (principal); J18.9 Pneumonia, unspecified organism; J96.01 Acute respiratory failure with hypoxia; I50.33 Acute on chronic diastolic (congestive) heart failure; G93.41 Metabolic encephalopathy; N17.9 Acute kidney failure, unspecified; C34.90 Malignant neoplasm of unspecified part of unspecified bronchus or lung; D70.1 Agranulocytosis secondary to cancer chemotherapy; Z79.82 Long term (current) use of aspirin; Z79.4 Long term (current) use of insulin; T45.1X5A Adverse effect of antineoplastic and immunosuppressive drugs, initial encounter; T45.8X5A Adverse effect of other primarily systemic and hematological agents, initial encounter; D63.8 Anemia in other chronic diseases classified elsewhere; J44.9 Chronic obstructive pulmonary disease, unspecified; B37.9 Candidiasis, unspecified; K12.30 Oral mucositis (ulcerative), unspecified; G47.00 Insomnia, unspecified; E03.9 Hypothyroidism, unspecified; G47.33 Obstructive sleep apnea (adult) (pediatric); E11.9 Type 2 diabetes mellitus without complications; Z95.820 Peripheral vascular angioplasty status with implants and grafts; E78.5 Hyperlipidemia, unspecified; Z95.2 Presence of prosthetic heart valve; I25.10 Atherosclerotic heart disease of native coronary artery without angina pectoris; Z82.49 Family history of ischemic heart disease and other diseases of the circulatory system; Z87.891 Personal history of nicotine dependence; I10 Essential (primary) hypertension; G89.29 Other chronic pain; Z79.52 Long term (current) use of systemic steroids; Z79.02 Long term (current) use of antithrombotics/antiplatelets; R50.81 Fever presenting with conditions classified elsewhere

== ENCOUNTER → 2017-01-21 | Outpatient (CLI) | payer BC ==
[~2017-01-21] MED LIST changes: -DILT300C PO; +DIPH-437 PO; +FERR1TAB13 PO; -FURO-85 PO; +GFNSR600 PO; +GUAISYP4 PO; +INSDGIPEN SC; +LEVO125T5 PO; -LEVO25TA5 PO; +LSX40 PO; -METF-384 PO; +METF1TAB53 PO; +PRED-301 PO; +PRED10TA PO; +SITA1TAB27 PO; -VIT D3; +augmentin
--- NOTE | 2017-01-21 12:01 | DIAGNOSTIC IMAGING REPORT ---
TWO VIEW CHEST CLINICAL HISTORY: Lung cancer follow-up. FINDINGS: PA and lateral chest radiographs are compared to study dated 01/07/2017 and correlated with chest CT dated 11/26/2016. The patient is status post midline sternotomy. The heart is enlarged. The pulmonary vasculature is noncongested. Emphysema and chronic interstitial thickening are similar to previous. No airspace consolidation or pleural effusion is identified. The patient's known left lower lobe pulmonary lesion is not well visualized. A large calcification chronic granuloma is seen in the left upper lobe. There is no pneumothorax. The skeletal structures are osteopenic. Degenerative change and DISH are noted throughout the thoracic spine. IMPRESSION: 1. Cardiomegaly and emphysema. 2. No airspace consolidation or pleural effusion is identified. 3. The patient's known left lower lobe pulmonary lesion seen by CT on 11/26/2016 was not clearly visualized. Electronically signed by: Kamar Mclain M.D. 01/21/2017 11:59 AM Dictated Date/Time: 01/21/2017 11:56 AM
== END | disposition home or self-care (01) ==
LOC: C.RADBC 11:37
PROVIDERS: ATTEND Internal Medicine Hematology & Oncology
DX: C34.30 Malignant neoplasm of lower lobe, unspecified bronchus or lung (principal); I51.7 Cardiomegaly; J43.9 Emphysema, unspecified

== ENCOUNTER → 2017-02-22 | Outpatient (CLI) | payer BC ==
[~2017-02-22] MED LIST changes: -ACET-1256 PO; -DIPH-437 PO; -GFNSR600 PO; -GUAISYP4 PO; -PRED10TA PO
[2017-02-22 12:31] LABS: BASO % 0.3 %; BASO ABS # 0.02 K/uL (0-0.2); COMPLETE YES; EOS % 1.1 %; HEMATOCRIT 30.2 % (42-52); IG% 0.4 %; LYMPH % 22.5 %; LYMPH ABS # 1.71 K/uL (1.2-3.4); MEAN CELL VOLUME 98.4 fL (80-100); MEAN CORPUSCULAR HEMOGLOBIN 31.6 pg (25-34); MEAN CORPUSCULAR HGB CONC 32.1 g/dl (32-36); MEAN PLATELET VOLUME 11.2 fL (7.4-10.4); MONO % 10.1 %; NEUT % 65.6 %; PLATELET COUNT 230 K/uL (130-400); RED BLOOD COUNT 3.07 M/uL (4.7-6.1)
[2017-02-22 13:28] LABS: BLOOD UREA NITROGEN 44 mg/dl (7-18); BUN/CREATININE RATIO 27.4 (10-20); CALCIUM 9.3 mg/dl (8.5-10.1); CARBON DIOXIDE 28 mmol/L (21-32); CHLORIDE 108 mmol/L (98-107); GLUCOSE 180 mg/dl (70-99); MAGNESIUM 2.3 mg/dl (1.8-2.4); SODIUM 145 mmol/L (136-145)
== END | disposition home or self-care (01) ==
LOC: C.LAB1850 11:04
PROVIDERS: ATTEND Physician Assistant
DX: D64.9 Anemia, unspecified (principal); R53.83 Other fatigue; I49.9 Cardiac arrhythmia, unspecified

== ENCOUNTER → 2017-03-25 | Outpatient (CLI) | payer BC ==
--- NOTE | 2017-03-25 11:18 | DIAGNOSTIC IMAGING REPORT ---
CHEST 2 VIEWS ROUTINE CLINICAL HISTORY: NON-SMALL CELL LUNG CANCER COMPARISON STUDY: 01/21/2017 FINDINGS: Mild stable cardiomegaly. Prior median sternotomy. Chronic interstitial and emphysematous change. No new or interval process. IMPRESSION: Chronic and emphysematous and interstitial change. No acute or interval process. Electronically signed by: Jairo Lucas M.D. 03/25/2017 11:17 AM Dictated Date/Time: 03/25/2017 11:15 AM
== END | disposition home or self-care (01) ==
LOC: C.RAD 10:41
PROVIDERS: ATTEND Internal Medicine Hematology & Oncology
DX: C34.30 Malignant neoplasm of lower lobe, unspecified bronchus or lung (principal)

== ENCOUNTER → 2017-05-28 | Outpatient (CLI) | payer BC ==
[~2017-05-28] MED LIST changes: +LEVO125T4 PO; -LEVO125T5 PO; +OPTIRAY 320 IV PRN
--- NOTE | 2017-05-28 12:35 | DIAGNOSTIC IMAGING REPORT ---
CT SCAN OF THE CHEST WITH IV CONTRAST CLINICAL HISTORY: Follow-up lung cancer. COMPARISON STUDY: Chest CT scans dated 11/26/2016 and 07/20/2014. TECHNIQUE: Following the IV administration of 70 cc of Optiray 320, CT scan of the thorax was performed from the thoracic inlet to the upper abdomen. Images are reviewed in the axial, sagittal, and coronal planes. IV contrast was administered without complication. A dose lowering technique was utilized adhering to the principles of ALARA. The examination is significantly degraded by motion artifact, as well as by streak artifact from the patient's arms which could not be elevated above the chest. CT DOSE: 1876.51 mGy.cm FINDINGS: Thyroid: Imaged portions of the thyroid gland are normal in size and attenuation. Thoracic aorta: There is advanced atherosclerotic calcification of the thoracic aorta, which is normal in caliber and demonstrates standard 3-vessel arch anatomy. No dissection is seen. Heart: Midline sternotomy wires are noted. The heart is mildly enlarged and without pericardial effusion. The coronary arteries and mitral annulus are densely calcified. The pulmonary trunk is normal in caliber. The pulmonary vessels are not well opacified. Lungs and pleural spaces: Evaluation of the lung parenchyma is degraded by respiratory motion artifact. Emphysema is noted. Diffuse subpleural reticulation is identified. Patchy airspace consolidation is seen at the right lung base and there is trace right pleural effusion. The trachea and central airways clear. A large calcified granuloma is again seen in the left upper lobe. A 2.2 cm irregular density in the right lower lobe seen on image #175 and a 1.2 cm left lower lobe subpleural nodule on image #107 are unchanged. Additional smaller nodules as well as foci of scarring are similar to previous. Mediastinum: There is an enlarging lymph node in the anterior mediastinum seen on image #78. This measures 2.7 x 2.3 cm (previously measuring up to 1.1 cm). Maia: A right hilar lymph node seen on image #136 has decreased in size from previous, now measuring 3.3 x 2.1 cm (previously measured 4.1 x 3.5 cm). There are calcified left hilar nodes. Axillae: There is no axillary lymphadenopathy. Upper abdomen: A small hiatal hernia is noted. The partially imaged kidneys are atrophic. A 3.4 cm cyst is noted in the upper pole the right kidney. There is there is complete fatty atrophy of the partially imaged pancreas. A small chronic subcapsular collection the spleen is unchanged from previous. There are calcified splenic and hepatic granulomas. No adrenal lesion is identified. Skeletal structures: The skeletal structures are osteopenic. 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 No lytic or blastic bony lesions are seen. IMPRESSION: 1. Cardiomegaly and emphysema. 2. Overall mixed response to treatment. An enlarged right hilar lymph node has decreased in size from 11/26/2016, while a pathologic mediastinal lymph node has significantly increased in size from previous. 3. Bilateral lower lobe pulmonary nodules/densities have not significantly changed from previous. No new or progressive pulmonary lesion is identified. 4. There is patchy airspace consolidation at the right lung base may small right pleural effusion. This suggests pneumonia/aspiration pneumonitis. Clinical correlation will be required. 5. Additional chronic findings as above. Electronically signed by: Kamar Mclain M.D. 05/28/2017 12:34 PM Dictated Date/Time: 05/28/2017 12:23 PM
--- NOTE | 2017-05-28 13:02 | DIAGNOSTIC IMAGING REPORT ---
ABD/PELVIS IV AND ORAL CONT CLINICAL HISTORY: 82 years-old Male presenting with LUNG CANCER. TECHNIQUE: Multidetector CT of the abdomen and pelvis was performed after the administration of oral and intravenous contrast. IV contrast: 70 mL of Optiray 320. A dose lowering technique was used consistent with the principles of ALARA (as low as reasonably achievable). COMPARISON: 12/29/2016. CT DOSE (mGy.cm): The estimated cumulative dose is 1876.51 inclusive of the chest CT. FINDINGS: Reinforced Steel Placing Supervisor topogram: Median sternotomy wires noted. Lung bases: Persistent although slightly decreased right dependent lung groundglass and more solid consolidation. Minimal opacity in the dependent right upper lobe. Biatrial enlargement. Aortic valve and mitral annular calcification. No pericardial or pleural effusion. Liver: Normal morphology. Few parenchymal calcifications. Irregular 2.4 cm hypodensity in the lateral right hepatic lobe is new from prior exam and suspicious area grossly patent hepatic vasculature allowing for suboptimal opacification. Biliary: No intrahepatic or extrahepatic biliary ductal dilatation. Normal gallbladder. Pancreas: Severe parenchymal atrophy. Spleen: Parenchymal calcifications could suggest old granulomatous disease. Adrenal glands: Normal. Kidneys and ureters: Well-defined hypodensity at the upper pole the right kidney likely simple cyst. No hydronephrosis. No nephrolithiasis. Vascular calcification noted. Ureters normal. Bladder: Mild circumferential bladder wall thickening, possibly suggesting chronic outlet obstruction. Pelvic organs: Prostate enlargement likely secondary to benign prostatic hyperplasia. Bowel: Diverticulosis of the descending and sigmoid colon. No evidence of diverticulitis. Normal appendix. No bowel obstruction. Mild distal esophageal wall thickening. This was likely present on the prior exam. Peritoneal cavity: No free fluid or intraperitoneal gas. Vasculature: Significant atherosclerosis of the abdominal aorta. Again demonstrated is minimal displacement of intimal calcifications suggesting possible chronic dissection. This appearance is unchanged from prior exam. Lymph nodes: No enlarged lymph nodes in the abdomen or pelvis. Abdominal wall: Normal. Musculoskeletal: Degenerative changes of the spine. Degenerative changes of the sacroiliac joints. No destructive osseous lesion. IMPRESSION: 1. Interval development of a suspicious 2.4 cm lesion in the right hepatic lobe, concerning for a site of new metastases. No other evidence of metastatic disease in the abdomen or pelvis. No lymphadenopathy. 2. Slight interval decrease in dependent right lower lobe consolidation, which could suggest chronic aspiration. 3. Diverticulosis. Electronically signed by: Mario Martel M.D. 05/28/2017 1:00 PM Dictated Date/Time: 05/28/2017 12:51 PM
== END | disposition home or self-care (01) ==
LOC: C.CTS 11:45
PROVIDERS: ATTEND Internal Medicine Hematology & Oncology
DX: C34.30 Malignant neoplasm of lower lobe, unspecified bronchus or lung (principal); Z08 Encounter for follow-up examination after completed treatment for malignant neoplasm; Z92.3 Personal history of irradiation

== ENCOUNTER → 2017-05-28 | Outpatient (CLI) | payer BC ==
[~2017-05-28] MED LIST changes: -OPTIRAY 320 IV PRN
[2017-05-28 09:06] VITALS: BP 133/54; PULSE 112; TEMP 36.4; O2SAT 98
--- NOTE | 2017-05-28 10:44 | Radiation Oncology Follow-Up ---
Radiation Oncology Follow-Up Date of Visit May 28, 2017. Reason For Visit one month follow up Radiation Completion Date 04/20/17 Diagnosis (1) Lung cancer Status: Acute Onset Date: 05/14/2014 Location: left lower lobe and right hilum Histology Subtype: squamous cell carcinoma Stage: lll (B) Permanent Comment: Squamous cell carcinoma of the right lower lobe diagnosed Multiple regimens of chemotherapy Taxol carboplatin then Nivolumab Progression on PET/CT 12/09/2016 Activity of the left lower lobe and right hilum Status post completion of radiation therapy 04/20/2017. He received 6000 cGy Last Edited By: Abi Betancourt on May 03, 2017 14:39 History of Present Illness Mr. De Leon is an 82-year-old gentleman who was initially diagnosed with squamous cell carcinoma the right lower lobe in May [address]-guided FNA biopsy. The patient had been followed in [facility] due to multiple concerning nodules in the lungs for a period of time and he did have multiple biopsies which were ultimately negative. Eventually, the patient did undergo a bronchoscopy and endobronchial ultrasound on 05/14/2014 and did have a biopsy of a right level 10 lymph node biopsy (negative) and right lower lobe mass which confirmed squamous cell carcinoma; multiple genetic studies were completed on the specimen and they were all negative including for ALK gene rearrangement and EGFR mutations. The patient was subsequently treated with carboplatin and Taxol chemotherapy for 4 cycles. The patient did have radiographic progression and then was started on Opdivo which he has been on since December 2014. More recently, the patient did have a PET/CT scan completed on 12/09/2016 which did reveal: "1. Progressive metastatic disease involving the chest primarily involving the superior segment left lower lobe and right hilum. 2. These nodules and/or nodes, however are unchanged compared to recent CT of the chest 3. Stable appearance to the abdomen and pelvis with no evidence for a metabolically active focus." Dr. Cedeño for medical oncology did discuss potentially considering chemotherapy however the patient had severe symptoms before and did not want any further chemotherapy. We are now being asked to evaluate the patient for consideration of radiation therapy. Today, the patient is doing relatively well overall. He has no significant symptoms at this point. Patient underwent radiation therapy alone. Radiation was completed 04/20/2017. He received 6000 cGy. Interim History He denies fatigue associated with treatment. He did not have any difficulty with skin irritation. He denies difficulty with swallowing. He denies change in his respiratory status. He was able to go on his cruise and have a good time. He uses a nebulizer regularly. In the morning he usually has a production of mucous. This then resolves throughout the rest of the day and with his repeat treatments. He has seen Dr. Cedeño in follow-up. They have discussed possibly using Tarceva. There also discussed a second opinion and possible participation in clinical trial. He currently does not wish to seek another opinion. He is also not in favor of clinical trials. He hasn't appointment next week to review possible options with Dr. Cedeño. He is having a CAT scan later this morning. Allergies Coded Allergies: Sulfa Antibiotics (Verified Allergy, Severe, ., 12/29/16) Home Medications Scheduled Aspirin (Aspirin Ec), 81 MG PO DIRECTED Atorvastatin (Lipitor), 80 MG PO HS Cholecalciferol (Vitamin D-3), 1,000 INTER.UNIT PO BID Clopidogrel (Plavix), 75 MG PO DAILY Coenzyme Q10 (Ubidecarenone) (Coq10), 100 MG PO DAILY Cyanocobalamin (Vitamin B-12), 1,000 MCG PO DAILY Diltiazem Hcl Coated Beads (Cartia Xt), 1 CAP PO DAILY Ferrous Sulfate (Kp Ferrous Sulfate), 325 MG PO DAILY Fish Oil (Dinuba-3), 1,000 MG PO DAILY Fluticasone Furoate-Vilanterol (Breo Ellipta), 1 INHA INH DAILY Furosemide (Furosemide), 40 MG PO BID Cecjcyutzgy-Devaeihjsen-Sgg C- (Glucosamine Chondroitin 1), 1,500 MG PO DAILY Insulin Glargine (Lantus Solostar), 8 UNITS SC QPM Levothyroxine Sodium (Levothyroxine Sodium), 125 MCG PO QAM Metformin Hcl (Glucophage Ext Rel), 2,000 MG PO QAM Metoprolol Succinate (Metoprolol Succinate ER), 50 TAB PO QAM Multiple Vitamins W/ Minerals (Centrum Silver Adult 50+), 1 TAB PO DAILY Olmesartan Medoxomil (Benicar), 40 MG PO QAM Pantoprazole (Pantoprazole Sodium), 40 MG PO BID Potassium Ext Rel (Klor-Con), 20 MEQ PO DAILY Prednisone (Prednisone), 5 MG PO DAILY Sitagliptin (Januvia), 100 MG PO DAILY Tiotropium [place] (Spiriva Handihaler), 1 CAP INH QPM [augmentin], Q12 Scheduled PRN Albuterol 0.5% Soln (Ventolin 0.5% Soln), 1 VIAL NEB DAILY PRN for PRN Albuterol Sulfate (Proair Hfa), 2 PUFFS INH QID PRN for Wheezing Cetirizine (Zyrtec), 10 MG PO DAILY PRN for Allergies Review of Systems Gastrointestinal: Symptoms: Nausea GI Comments: quesy since started antibiotic on Wed Oral: Symptoms: No Problems Respiratory: Symptoms: SOB With Exertion, Productive Cough Sputum Character: thick yellow to tsai mucus Urinary: Symptoms: WNL Skin: Symptoms: No Problems Additional Notes: He completed a distress management report and answered "no" to all questions other than he has concerns about his breathing and memory/concentration. He has fears, nervousness, and worry about his prognosis. Physical Exam Vital Signs Date Time Temp Pulse Resp B/P (MAP) Pulse Ox O2 Delivery O2 Flow Rate FiO2 05/28/17 09:06 36.4 112 22 133/54 98 Pain: Patient Pain Scale: 0 - 10 Initial Pain Intensity: 0.0 Fatigue: None General Appearance: no apparent distress Eyes: normal inspection, EOMI Neck: no adenopathy, thyroid normal Respiratory/Chest: no respiratory distress, no accessory muscle use, + wheezing Cardiovascular: regular rate, rhythm, no gallop, + systolic murmur Extremities: no pedal edema Neurologic/Psychiatric: no motor/sensory deficits, alert, normal mood/affect Skin: warm/dry Lymphatic: no adenopathy Laboratory Studies Test 03/24/17 15:07 05/04/17 13:45 White Blood Count 6.52 K/uL (4.8-10.8) 5.08 K/uL (4.8-10.8) Red Blood Count 3.05 M/uL (4.7-6.1) 3.23 M/uL (4.7-6.1) Hemoglobin 9.6 g/dL (14.0-18.0) 10.0 g/dL (14.0-18.0) Hematocrit 29.2 % (42-52) 30.9 % (42-52) Mean Corpuscular Volume 95.7 fL (80-100) 95.7 fL (80-100) Mean Corpuscular Hemoglobin 31.5 pg (25-34) 31.0 pg (25-34) Mean Corpuscular Hemoglobin Concent 32.9 g/dl (32-36) 32.4 g/dl (32-36) Platelet Count 177 K/uL (130-400) 198 K/uL (130-400) Mean Platelet Volume 11.1 fL (7.4-10.4) 10.6 fL (7.4-10.4) Neutrophils (%) (Auto) 75.1 % 66.7 % Lymphocytes (%) (Auto) 8.6 % 18.7 % Monocytes (%) (Auto) 15.2 % 12.8 % Eosinophils (%) (Auto) 0.6 % 1.2 % Basophils (%) (Auto) 0.3 % 0.2 % Neutrophils # (Auto) 4.90 K/uL (1.4-6.5) 3.39 K/uL (1.4-6.5) Lymphocytes # (Auto) 0.56 K/uL (1.2-3.4) 0.95 K/uL (1.2-3.4) Monocytes # (Auto) 0.99 K/uL (0.11-0.59) 0.65 K/uL (0.11-0.59) Eosinophils # (Auto) 0.04 K/uL (0-0.5) 0.06 K/uL (0-0.5) Basophils # (Auto) 0.02 K/uL (0-0.2) 0.01 K/uL (0-0.2) RDW Standard Deviation 49.9 fL (36.4-46.3) 52.2 fL (36.4-46.3) RDW Coefficient of Variation 14.5 % (11.5-14.5) 14.8 % (11.5-14.5) Immature Granulocyte % (Auto) 0.2 % 0.4 % Immature Granulocyte # (Auto) 0.01 K/uL (0.00-0.02) 0.02 K/uL (0.00-0.02) Sodium Level 136 mmol/L (136-145) 137 mmol/L (136-145) Potassium Level 4.4 mmol/L (3.5-5.1) 5.3 mmol/L (3.5-5.1) Chloride Level 101 mmol/L (98-107) 105 mmol/L (98-107) Carbon Dioxide Level 27 mmol/L (21-32) 25 mmol/L (21-32) Anion Gap 8.0 mmol/L (3-11) 7.0 mmol/L (3-11) Blood Urea Nitrogen 36 mg/dl (7-18) 49 mg/dl (7-18) Creatinine 1.40 mg/dl (0.60-1.40) 1.70 mg/dl (0.60-1.40) Est Creatinine Clear Calc Drug Dose 49.0 ml/min 39.6 ml/min Estimated GFR () 54.2 42.6 Estimated GFR (Non- 46.8 36.7 BUN/Creatinine Ratio 25.8 (10-20) 28.7 (10-20) Random Glucose 207 mg/dl (70-99) 188 mg/dl (70-99) Calcium Level 9.1 mg/dl (8.5-10.1) 9.4 mg/dl (8.5-10.1) Total Bilirubin 0.7 mg/dl (0.2-1) 0.6 mg/dl (0.2-1) Aspartate Amino Transferase (AST) 15 U/L (15-37) 15 U/L (15-37) Alanine Aminotransferase (ALT) 32 U/L (12-78) 27 U/L (12-78) Alkaline Phosphatase 114 U/L (45-117) 102 U/L (45-117) Lactate Dehydrogenase 168 U/L (87-241) 191 U/L (87-241) Total Protein 7.4 gm/dl (6.4-8.2) 7.6 gm/dl (6.4-8.2) Albumin 3.5 gm/dl (3.4-5.0) 3.6 gm/dl (3.4-5.0) Globulin 3.9 gm/dl (2.5-4.0) 4.0 gm/dl (2.5-4.0) Albumin/Globulin Ratio 0.9 (0.9-2) 0.9 (0.9-2) Assessment & Plan Plan: The patient was also seen and examined by Dr. Rodrigues. He'll be having a CAT scan later this afternoon. During his stay he did become tremulous. It was felt his blood sugar was likely low. He was given soda to help bring up his blood sugar. He was only allowed clear liquids because of the prep for the CT scan. He'll be following up next week with Dr. Cedeño and review the CAT scan results and discuss further treatment. We asked him to return to our office in 6 months. He may call if he has any questions or concerns in the interim. ADDENDUM: I agree with note created by Abi Betancourt PA-C. I reviewed the patient's chart and information with her. I have examined and evaluated the patient. I reviewed relevant clinical information and answered the patient's and /or family's questions. PHILOSOPHY LECTURER Total Time In Follow-Up I spent 20 minutes speaking to the patient performing examination. I spent 15 minutes reviewing information completing this note. AK I spent 15 minutes examining and counseling the patient. PHILOSOPHY LECTURER Copy To Christiano Cedeño D.O.; Kennedy George M.D.
== END | disposition home or self-care (01) ==
LOC: C.ONC 08:59
PROVIDERS: ATTEND Physician Assistant Medical
DX: Z08 Encounter for follow-up examination after completed treatment for malignant neoplasm (principal); Z92.3 Personal history of irradiation; Z85.118 Personal history of other malignant neoplasm of bronchus and lung

== ENCOUNTER → 2017-08-09 | Outpatient (CLI) | payer BC ==
[~2017-08-09] MED LIST changes: -LEVO125T4 PO; +LEVO125T5 PO
--- NOTE | 2017-08-09 16:32 | DIAGNOSTIC IMAGING REPORT ---
CT SCAN OF THE ABDOMEN WITHOUT IV CONTRAST CLINICAL HISTORY: Left-sided abdominal pain. Lung cancer. COMPARISON STUDY: CT scans of the chest, abdomen, and pelvis dated 05/28/2017. TECHNIQUE: CT scan of the abdomen is performed from the lung bases to the pelvic inlet. Images are reviewed in the axial, sagittal, and coronal planes. IV contrast was not administered for this examination as per the referring clinician. Note that the examination was performed in significantly suboptimal fashion without IV contrast. A dose lowering technique was utilized adhering to the principles of ALARA. CT DOSE: 458.27 mGycm FINDINGS: Lung bases: The patient is status post midline sternotomy. The heart is mildly enlarged and without pericardial effusion. The coronary arteries and mitral annulus are densely calcified. There are trace pleural effusions, right larger than left. Emphysema is noted. Multifocal pulmonary metastatic disease is identified at the lung bases, significantly progressed from 05/28/2017. There are at least 10 lesions identified. The largest is at the left lung base on image #16 measuring 1.4 cm. A pleural-based lesion at the left lung base on image #6 measures 1.9 cm. Airspace consolidation is identified in the right upper lobe on the administration clerk tomogram. Liver: The unenhanced liver is normal in size, contour, and attenuation. There is no intrahepatic biliary ductal dilatation. A 4.3 cm metastasis is seen in the right lobe on image #104. This is increased in size from 05/28/2017 when it measured up to 2.4 cm. No additional hepatic lesions are clearly seen on this unenhanced examination. There are scattered calcified hepatic granulomas. Gallbladder: Calcified gallstones are identified. There is no CT evidence of acute cholecystitis. Spleen: Normal in size and attenuation. There are calcified splenic granulomas. Pancreas: There is near complete atrophy of the pancreas which is grossly unremarkable. Adrenal glands: Unremarkable. Kidneys: The unenhanced kidneys demonstrate cortical atrophy and are without hydronephrosis. There are no renal calculi identified. A 3.4 cm cyst arises from the right upper pole. Abdominal vasculature: The abdominal aorta is normal in course and caliber noting advanced atherosclerotic calcification. Bowel: Visualized portions of the small bowel and colon are normal in course and caliber. Moderate constipation is observed. Peritoneum: There is no intraperitoneal free air or abdominal ascites. Lymphadenopathy: A large left periaortic lesion anterior to the psoas muscle in image #207 has significantly increased in size measuring 5.6 x 4.3 cm (previously measuring up to 2.9 cm). Skeletal structures: The skeletal structures are osteopenic. There is moderate lumbosacral spondylosis. There is an 11th left rib lesion seen on image #112 with a large soft tissue component. This measures 4.5 x 2.8 cm and is new from previous. No additional destructive bony lesion is Seen. IMPRESSION: 1. Significantly suboptimal examination without IV contrast. 2. There are no acute infectious or inflammatory findings in the abdomen. 3. There has been significant progression of multifocal metastatic disease as compared 05/28/2017. There are new and enlarging pleural and pulmonary based lesions, a new left 11th rib lesion, an enlarging hepatic metastasis, and an enlarging left periaortic mass. 4. There are are trace pleural effusions, right larger than left. 5. Right upper lobe pulmonary consolidation is suggested on the administration clerk tomogram. Correlate clinically for evidence of pneumonia. Consider chest x-ray for further assessment. 6. Moderate constipation. 7. Cholelithiasis. 8. Additional findings as above. Electronically signed by: Kamar Mclain M.D. 08/09/2017 4:31 PM Dictated Date/Time: 08/09/2017 4:20 PM
== END | disposition home or self-care (01) ==
LOC: C.CTS 15:25
PROVIDERS: ATTEND Family Medicine
DX: R10.9 Unspecified abdominal pain (principal); R91.8 Other nonspecific abnormal finding of lung field; J90 Pleural effusion, not elsewhere classified; K59.00 Constipation, unspecified; C34.90 Malignant neoplasm of unspecified part of unspecified bronchus or lung; C78.7 Secondary malignant neoplasm of liver and intrahepatic bile duct; M89.9 Disorder of bone, unspecified; R19.09 Other intra-abdominal and pelvic swelling, mass and lump; K80.20 Calculus of gallbladder without cholecystitis without obstruction

== ENCOUNTER → 2017-08-23 | Outpatient (CLI) | payer BC ==
[2017-08-23 17:25] LABS: HEMATOCRIT 27.6 % (42-52); MEAN CELL VOLUME 89.3 fL (80-100); MEAN CORPUSCULAR HEMOGLOBIN 29.8 pg (25-34); MEAN CORPUSCULAR HGB CONC 33.3 g/dl (32-36); MEAN PLATELET VOLUME 10.5 fL (7.4-10.4); PLATELET COUNT 168 K/uL (130-400); RED BLOOD COUNT 3.09 M/uL (4.7-6.1); WHITE BLOOD COUNT 5.58 K/uL (4.8-10.8)
[2017-08-23 17:59] LABS: ALT/SGPT 22 U/L (12-78); BLOOD UREA NITROGEN 55 mg/dl (7-18); BUN/CREATININE RATIO 31.1 (10-20); CALCIUM 10.3 mg/dl (8.5-10.1); CARBON DIOXIDE 27 mmol/L (21-32); CHLORIDE 95 mmol/L (98-107); CREATININE 1.78 mg/dl (0.60-1.40); GLUCOSE 136 mg/dl (70-99); POTASSIUM 4.2 mmol/L (3.5-5.1); SODIUM 131 mmol/L (136-145)
[2017-08-23 18:02] LABS: ALB/GLOB RATIO 0.7 (0.9-2); ALKALINE PHOSPHATASE 97 U/L (45-117); AST/SGOT 230 U/L (15-37)
== END | disposition home or self-care (01) ==
LOC: C.LAB1850 16:36
PROVIDERS: ATTEND Family Medicine
DX: C34.90 Malignant neoplasm of unspecified part of unspecified bronchus or lung (principal); R58 Hemorrhage, not elsewhere classified; R09.02 Hypoxemia; G47.33 Obstructive sleep apnea (adult) (pediatric)